=== PATIENT | female | born 1975 | race Caucasian/White ===

== ENCOUNTER 2022-11-13 08:05 | Outpatient (CLI) | payer BC, SELFPAY | END 2022-11-13 08:06 | disposition home or self-care (01) | LOC: ANHOUTPT 08:11 → ANHLAB 08:54 | PROVIDERS: Visit Provider Internal Medicine Endocrinology, Diabetes & Metabolism | DX: E27.1 Primary adrenocortical insufficiency (principal) | CPT/HCPCS: 36415; 82533; 96372; J0834 ==

== ENCOUNTER 2024-12-21 16:11 | Emergency (ER) | payer BC, SELFPAY ==
--- NOTE | 2024-12-21 16:17 | PC.NURSE ---
Pt checked in and then declined to be seen due to full waiting room. Pt declined to be triaged. Pt ambulated out in NAD.
--- OUTSIDE RECORDS SUMMARY | 2024-12-21 18:08 | XMS_ITS | Data Portability ---
Author Organization [facility], [address] [place] [address] Neurology (ID) Address [address] [place] [id number] Assessment Encounter Date Assessment Date Assessment LastModified by Organization Details LastModified Time 03/09/2024 03/09/2024 Loly Is a 49-year-old woman with a very complicated health history 1. Multiple allergies to meds. i strongly encourage her to get medical alert bracelet for this. 2. lung nodule-- i will get her records and then follow up on ct lungs 3. anxiety, depression, ADHD-- she follows [facility] in [place] for medication management 4. OA and CRPS-- she uses daily marijuana -- smokes it. She sometimes takes a break from this and uses vicodin. I need to see old records related to this. She asks for hydrocodone when she goes off of THC to reset tolerance. 5. intracranial meningioma- -will review records. She says current size is about 1.5 by 1.5 cm. 6. tahcycardia-- she is seeing cardiology for this. she is on metoprolol. Cardiologis is [place]. 7. Gastric fistula managed with pantoprazole 40 mg twice daily. No labs today. Will review records and then make recomendations. Time 40 minutes [id number] Not available 03/09/2024 23:57:49 Plan of Treatment Reminders Order Date Submit Date Provider Last Modified By Organization Details Last Modified Time Details Appointments Spiromet ry.PRO 2024 01:15P M [facility] Not available Not available Not available New Patient Visit 20.NEW 2024 02:00P M Dr. Marifer Almaguer Not available Not available Not available New Patient Visit 15.NEW 2024 03:30P M Dr. Ronnie Bateman Not available Not available Not available Lab None recorded . Referral None recorded . Procedures None recorded . Surgeries None recorded . Imaging None recorded . Medication Orders None recorded . Patient TargetsNo targets recorded. Patient InstructionsNo instructions recorded. Reason for Referral None Reported. Problems Name Problem SNOMED Code Status Onset Date Resolution Date Notes Provider Name and Address Organization Details Recorded Time Complex regional pain syndrome type I 502739807 Active 2023 Shawna Casey MD [address] [place] [address], [phone] , [facility] 4 23:37:04 Tachycardia 6292615 Active 2023 Shawna Casey MD [address] [place] [address], [address] , [facility] 4 23:37:18 Intracranial meningioma 515608595 Active 2023 Shawna Casey MD [address] [place] [address], [phone] , [facility] 4 23:37:30 Asthma 260964580 Active 2023 Shawna Casey MD [address] [place] [address], [address] , [facility] 4 23:37:39 Osteoarthriti s 813973796 Active 2023 Shawna Casey MD [address] [place] [address], [phone] , [facility] 4 23:37:49 Attention deficit hyperactivity disorder, predominantly inattentive type 54899865 Active 2023 Shawna Casey MD [address] [place] [address], [address] , [facility] 4 23:37:57 Gastric fistula 982552540 Active 2023 Shawna Casey MD [address] [place] [address], [address] , [facility] 4 23:38:04 Thoracic outlet syndrome 704042248 Active 2023 Shawna Casey MD [address] [place] [address], [address] , [facility] 4 23:38:14 Anxiety 89663158 Active 2023 Shawna Casey MD [address] [place] [address], [address] , [facility] 4 23:38:22 Nodule of lung 867896269 Active 2023 Shawna Casey MD [address] [place] [address], [address] , [facility] 4 23:38:33 Dizziness 843583714 Active 2023 Shawna Casey MD [address] [place] [address], [address] , [facility] 4 23:38:41 Gastroesophag eal reflux disease 264498749 Active 2023 Shawna Casey MD [address] [place] [address], [address] , [facility] 4 23:38:49 Fibromyalgia 402039080 Active 2023 Shawna Casey MD [address] [place] [address], [address] , [facility] 4 23:39:06 Hypogammaglob ulinemia 223189444 Active 2023 Shawna Casey MD [address] [place] [address], [address] , [facility] 4 23:39:26 Problem Notes None recorded. Procedures Surgical History Date Name Laterality Status Provider Name and Address Organization Details Recorded Time Colonoscopy with biopsy completed Not Available Health Note 02/27/2024 12:00:33 Gastric Bypass completed Shawna Casey MD [address] [place] [address], [address], [facility] 03/09/2024 23:40:59 oophorectomy completed Shawna Casey MD [address] [place] [address], [address], [facility] 03/09/2024 23:41:12 Removal of fallopian tube completed Shawna Casey MD [address] [place] [address], [address], [facility] 03/09/2024 23:41:30 Imaging Results None recorded. Procedure Notes None recorded. Medical Equipment None Reported. Allergies Allergen ID Allergen Name Allergen Category Reaction Reaction Severity Criticality Documentation Date Start Date Code Code System Note Provider Name and Address Organization Details Recorded Time 7798430 minocycli ne medicatio n hives itching rash tachycard ia Not available Not available Not available Not available Not available 02/27/2024 6980 RxNorm Not Available Not Available Not Available 7625895 erythromy rachel medicatio n [place] hives itching palpitati ons rash tachycard ia Not available Not available Not available Not available Not available Not available Not available 02/27/2024 4053 RxNorm Not Available Not Available Not Available 0474736 adhesive environme nt,medica tion other rash Not available Not available Not available 02/27/2024 00575 UNK Not Available Not Available Not Available 6614587 amitripty line medicatio n eye redness other rash Not available Not available Not available Not available 02/27/2024 704 RxNorm Not Available Not Available Not Available 8636428 gabapenti n medicatio n confusion hallucina tions headache other Not available Not available Not available Not available Not available 02/27/2024 99976 RxNorm Not Available Not Available Not Available 3636595 ramelteon medicatio n itching other Not available Not available Not available 02/27/2024 80896 5 RxNorm Not Available Not Available Not Available 6524538 topiramat e medicatio n abdominal pain other Not available Not available Not available 02/27/2024 74858 RxNorm Not Available Not Available Not Available 0890345 metoprolo l Not available abdominal pain insomnia myalgias (muscle pain) nausea other Not available Not available Not available Not available Not available Not available 02/27/2024 6918 RxNorm Not Available Not Available Not Available Medications Name Sig Start Date Stop Date Status Note LastModified by Organization Details LastModified Time doxepin 50 mg capsule active Not Available Not Available N ot Available prednisone 10 mg tablet 03/09 completed Not Available Not Available Not Available metoprolol succinate ER 50 mg tablet,exte nded release 24 hr 03/09 completed Not Available Not Available Not Available naltrexone 50 mg tablet TAKE 1 TABLET BY MOUTH EVERY EVENING WITH FOOD 03/09 completed Not Available Not Available Not Available prednisone 20 mg tablet TAKE 1 TABLET BY MOUTH DAILY FOR 5 DAYS 03/09 completed Not Available Not Available Not Available clonazepam 1 mg tablet TAKE 1 TABLET BY MOUTH THREE TIMES DAILY NEEDED active Not Available Not Available No t Available clotrimazol e 1 % vaginal cream INSERT 1 APPLICATO RFUL VAGINALLY EVERY NIGHT 03/09 completed Not Available Not Available Not Available trazodone 100 mg tablet TAKE 1 TO 2 TABLETS BY MOUTH AT BEDTIME FOR SLEEP 03/09 completed Not Available Not Available Not Available benzonatate 100 mg capsule 03/09 completed Not Available Not Available Not Available pantoprazol e 40 mg tablet,quincy yed release 1 Twice daily active Not Available Not Available No t Available cyanocobala min (vit B-12) 1,000 mcg/mL injection solution ADMINISTE R 1ML UNDER THE SKIN EVERY WEEK EVERY MORNING 03/09 completed Not Available Not Available Not Available buspirone 7.5 mg tablet active Not Available Not Available Not Available folic acid 1 mg tablet TAKE 1 TABLET BY MOUTH EVERY DAY IN THE MORNING 03/09 completed Not Available Not Available Not Available montelukast 10 mg tablet TAKE 1 TABLET BY MOUTH EVERY DAY IN THE EVENING active Not Available Not Available No t Available mupirocin 2 % topical ointment APPLY TO BOTH NARES TWICE DAILY STARTING 5 DAYS BEFORE SURGERY AND ENDING 1 DAY BEFORE SURGERY 07/15 /2024 completed Not Available Not Available Not Available furosemide 20 mg tablet 03/09 completed Not Available Not Available Not Available albuterol sulfate HFA 90 mcg/actuati on aerosol inhaler INHALE 2 PUFFS BY MOUTH EVERY 4 HOURS NEEDED FOR WHEEZING OR SHORTNESS OF BREATH active Not Available Not Available No t Available amoxicillin 875 mg-potassiu m clavulanate 125 mg tablet TAKE 1 TABLET BY MOUTH TWICE DAILY FOR 10 DAYS 03/09 completed Not Available Not Available Not Available hydroxyzine pamoate 25 mg capsule 03/09 completed Not Available Not Available Not Available escitalopra m 20 mg tablet TAKE 1 AND 1/2 TABLETS BY MOUTH DAILY active Not Available Not Available No t Available aripiprazol e 5 mg tablet 03/09 completed Not Available Not Available Not Available aripiprazol e 2 mg tablet 03/09 completed Not Available Not Available Not Available lisdexamfet amine 70 mg capsule TAKE 1 CAPSULE BY MOUTH DAILY IN THE MORNING active Not Available Not Available No t Available Vyvanse 50 mg capsule TAKE 1 CAPSULE BY MOUTH EVERY MORNING 03/09 completed Not Available Not Available Not Available Vyvanse 60 mg capsule TAKE ONE CAPSULE BY MOUTH DAILY IN THE MORNING 03/09 completed Not Available Not Available Not Available Zyrtec 10 mg capsule Take 1 capsule every day by oral route. active Not Available Not Available No t Available Dulera 200 mcg-5 mcg/actuati on HFA aerosol inhaler INHALE 2 PUFFS BY MOUTH TWICE DAILY 03/09 completed Not Available Not Available Not Available TRUEplus Insulin 1 mL 31 gauge x 5/16 syringe USE TO INJECT VITAMIN B12 SUBCUTANE OUSLY WEEKLY FOR 90 DAYS 03/09 completed Not Available Not Available Not Available Vraylar 1.5 mg capsule TAKE 1 CAPSULE BY MOUTH DAILY. MAXIMUM DAILY DOSE IS 1 CAPSULE 03/09 completed Not Available Not Available Not Available Vraylar 4.5 mg capsule Take 1 capsule every day by oral route. active Not Available Not Available No t Available Vraylar 3 mg capsule TAKE 1 CAPSULE BY MOUTH DAILY. 03/09 completed Not Available Not Available Not Available Restasis MultiDose 0.05 % eye drops INSTILL 1 DROP INTO AFFECTED EYE(S) BY OPHTHALMI C ROUTE EVERY 12 HOURS active Not Available Not Available No t Available Trelegy Ellipta 100 mcg-62.5 mcg-25 mcg powder for inhalation INHALE 1 PUFF BY MOUTH DAILY active Not Available Not Available No t Available Vitals Date Recorded Body height Body mass index (BMI) Body weight Body temperature Oxygen saturation Oxygen saturation in Arterial blood by Pulse oximetry Heart rate Systolic blood pressure Diastolic blood pressure Provider Name and Address Organization Details Last Updated DateTime 4 176.53 cm 44.1 kg/m2 622682. 49 g 97.3 [degF] 99 % 99 % 90 /min 118 mm[Hg] 78 mm[Hg] Stacy Shaw [facility] 4 17:18:45 Social History Question Answer Notes LastModified by Organizat ion Details LastModified Time Do You Have An Advance Directive? No [email or web address] Information not available 02/27/2024 What Is Your Level Of Alcohol Consumption? Occasional [email or web address] Information not available 02/27/2024 How Many Times Per Week Do You Consume Alcohol? Less Than 1 Time Per Week [email or web address] Information not available 02/27/2024 What Is Your Level Of Caffeine Consumption? Heavy [email or web address] Information not available 02/27/2024 Are You Currently Employed? No [email or web address] Information not available 02/27/2024 What Is Your Occupation? Homemaker [email or web address] Information not available 02/27/2024 How Many Times Per Week Do You Exercise? Less Than 1 Time Per Week [email or web address] Information not available 02/27/2024 E-cigarettes Or Vaporization Device? Uses Non-nicotine Containing Device [email or web address] Information not available 02/27/2024 How Many Packs Per Day (PPD)? 4 Ppd Information not available 03/09/2024 How Long Have You Smoked? 8yr Information not available 03/09/2024 When Did You Quit Smoking? 2000 [email or web address] Information not available 02/27/2024 Do You Have A Medical Power Of Stove Mechanic? No [email or web address] Information not available 02/27/2024 What Was The Date Of Your Most Recent Tobacco Screening? 02/26/2024 [email or web address] Information not available 02/27/2024 What Is Your Relationship Status? [email or web address] Information not available 02/27/2024 Do You Use Any Illicit Or Recreational Drugs? No [email or web address] Information not available 02/27/2024 Sex: Unknown Functional Status Question Answer Note LastModified by Organizat ion Details LastModified Time What is your exercise level? Occasional [email or web address] Information not available 02/27/2024 Mental Status None recorded. Family History Relationship Description Onset Age of this Age Resolved Age Notes LastModified by Organization Details LastModified Time Brother Attention deficit hyperactivit y disorder [email or web address] Not available 02/26 12:00:31 Brother Arthritis [email or web address] Not availabl e 02/27/2024 12:00:31 Brother Asthma [email or web address] Not available 0 02/27/2024 12:00:31 Brother Hypertensive disorder [email or web address] Not available 2023 12:00:31 Mother Arthritis [email or web address] Not available 02/27/2024 12:00:31 Mother Family history of malignant neoplasm [email or web address] Not available 2023 12:00:31 Mother Chronic obstructive pulmonary disease [email or web address] Not available 2023 12:00:31 Mother Heart disease [email or web address] Not available 2023 12:00:31 Mother Hypertensive disorder [email or web address] Not available 2023 12:00:31 Mother Hypercholest erolemia [email or web address] Not available 2023 12:00:31 Mother Osteoporosis [email or web address] Not availa ble 02/27/2024 12:00:31 Father Arthritis [email or web address] Not available 02/27/2024 12:00:31 Father Family history of malignant neoplasm [email or web address] Not available 2023 12:00:31 Father Heart disease [email or web address] Not available 2023 12:00:31 Father Hypertensive disorder [email or web address] Not available 2023 12:00:31 Father Hypercholest erolemia [email or web address] Not available 2023 12:00:31 Maternal Grandfather Arthritis [email or web address] Not available 11/2023 12:00:31 Maternal Grandfather Heart disease [email or web address] Not available 2023 12:00:31 Maternal Grandfather Hypertensive disorder [email or web address] Not available 2023 12:00:31 Paternal Grandfather Arthritis [email or web address] Not available 11/2023 12:00:31 Paternal Grandfather Family history of malignant neoplasm [email or web address] Not available 2023 12:00:31 Paternal Grandfather Hypertensive disorder [email or web address] Not available 2023 12:00:31 Maternal Grandmother Arthritis [email or web address] Not available 11/2023 12:00:31 Maternal Grandmother Hypertensive disorder [email or web address] Not available 2023 12:00:31 Paternal Grandmother Arthritis [email or web address] Not available 11/2023 12:00:31 Paternal Grandmother Chronic obstructive pulmonary disease [email or web address] Not available 2023 12:00:31 Paternal Grandmother Heart disease [email or web address] Not available 2023 12:00:31 Paternal Grandmother Hypertensive disorder [email or web address] Not available 2023 12:00:31 Paternal Grandmother Hypercholest erolemia [email or web address] Not available 2023 12:00:31 Paternal Grandmother Osteoporosis [email or web address] Not available 0 02/27/2024 12:00:31 Paternal Grandmother Disorder of thyroid gland [email or web address] Not available 2023 12:00:31 Medical History Condition Response High Blood Pressure N COPD N Depression Y Anxiety Disorder Y Arthritis Y Cancer N Stroke N Fibromyalgia Y Kidney Disease N Bleeding Disorder N Asthma Y Seizures N Attention-deficit Hyperactivity Disorder Y Thyroid Problems N Anemia Y Diabetes N Hyperlipidemia N Heart Disease N Osteoporosis N Gynecological HistoryNo gynecological history recorded. Obstetrics History GPAL:G 0 P 0 0 0 0 Immunizations Vaccine Type Date Status Note Provider Nam e and Address Organization Details Recorded Time Influenza, recombinant, quadrivalent, PF 8 completed Stacy Shaw [facility], [facility] 03/09/2024 17:11:32 pneumococcal polysaccharide PPV23 8 completed Stacy jiang, [facility] 03/09/2024 17:11:32 [facility] 17:11:32 Influenza, split virus, trivalent, preservative 6 completed Stacy Shaw [facility] 03/09/2024 17:11:32 Past Encounters Encounter ID Performer Location Encounter Start Date Encounter Closed Date Diagnosis/Indication Diagnosis SNOMED-CT Code Diagnosis ICD10 Code Diagnosis Note [id number] Shawna Casey MD [facility] Internal Medicine (ID) [id number] [place] [address] 03/09/2024 16:55:52 03/11/2024 16:11:24 Nodule of lung 478895943 R91.1 Osteoarthritis 051361026 M19.90 Intracrani al meningioma 044303662 D32.0 Tachycardia 3556531 R00. 0 Gastric fistula 70048448 2 K31.6 Attention deficit hyperactivity disorder, predominantly inattentive type 06072691 F90.0 Health Concerns Section Related Observation LastModified by Organization Detai ls LastModified Time None Recorded Concern Status LastModified by Organization Details LastModified Time None Recorded Advance Directives Directive N: Payers None recorded. Notes Date Note Type Note Provider Name and Address Organization Details Recorded Time 4 text/html Loly Reese a 49 year oldfemalepresenting for care. She is a new patient to the practice and here to establish care. She has a very complex health history. She has a meningioma in the left parietal area. She is followed by a neurosurgeon at [facility]. She does not have any symptoms. The surgeon wants to do surgery but she wants to wait. She sees a [facility] Anayeli Dinero who prescribes medication for her anxiety depression ADD and other psychiatric issues. She recently had a stimulant added to her regimen to see if this would help with her ability to concentrate. She does not think it is working. She has complex regional pain syndrome which affects the right side of her body. In the past it would turn purple and swell. Now she has discomfort. Cold weather makes it worse. She has tachycardia.She has been seeing a county home demonstration agent for this. Holter monitor showed a slightly decreased output on the right ventricle. When she gets the tachycardia, she has to sit down as she does not think clearly. Her heart rate is monitored electronically and it can get up to 123 without any exertion. She does not get chest pain with this. She has a known pulmonary nodule. She was a very heavy smoker and quit in 1999. She needs to have a CT scan to follow-up on this. She has multiple medication allergies. Amitriptyline caused significant bleeding and I suggested to her that she get a bracelet to wear with her allergies printed on it. She is current for her Pap smear, mammogram, eye exam, colonoscopy the. She has an another colonoscopy scheduled for 2026. 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 Shawna Casey MD [address] [facility], [place], [address], [facility] 03/09/2024 23:58:08 OBGyn Episode No OBEpisode recorded.
--- OUTSIDE RECORDS SUMMARY | 2024-12-21 18:08 | XMS_ITS ---
Author Organization [facility] Address [address] [address] Care Team Providers Care Machine Design Checker Name Role Phone Samantha Mcbride Primary Care Provider BROOKE Martin Unavailable [phone] REASON FOR VISIT 1 month f/u Encounters Encounter Location Date Provider Diagnosis [address] [id number] 10/19/2024 BROOKE MOSS Plan Of Treatment No Information Progress Notes * Loly PETERSON WDOB: [birth year] (49 yo F)Acc No.[id number]:10/19/2024 Patient: Loly TANG Provider: Richelle Moss MD :1975 A ge:49 Y S ex:Female Date:10/19/2024 Address:[address] [place], [place] [id number] Pcp:Samantha Mcbride Subjective: * Chief Complaints: * 1 . 1 month f/u. * Medical History: Objective: * Vitals: Assessment: Plan: * Treatment: * * Electronic signature of ZITA MOSS MD on 12/21/2024 at 06:08 PM CDT Sign off status: Pending * Provider: Richelle Moss MD Date: 10/19/2024 Generated for Manavi ng/Fabelkysg/eTransmitting on: 0 12/21/2024 06:08 PM CDT
--- OUTSIDE RECORDS SUMMARY | 2024-12-21 18:08 | XMS_ITS ---
Author Organization [facility] Address [address] [place] [address] Care Team Providers Care Lithographic Retoucher Apprentice Name Role Phone Samantha Mcbride Primary Care Provider REASON FOR VISIT follow up Encounters Encounter Location Date Provider Diagnosis [facility] - Samantha Mcbride [address] [place] [address] 09/15/2024 Samantha Mcbride Plan Of Treatment No Information Progress Notes * Loly PETERSONDOB:1975 (49 yo F)Acc No.[id number]:09/15/2024 Progress Notes Patient: Loly TANG Provider: Rosalind Mcbride MD :1975 A ge:49 Y S ex:Female Date:09/15/2024 Address:[address] [place], [place] [id number] Subjective: * Chief Complaints: * 1 . Follow up. * HPI: I nterval Hx: [age] yo female comes in for follow up in management of prediabetes, fatigue and autoimmune thyroiditis. At her last visit in May we continued metformin and added zepbound for weight management. We referred patient to cardiology for lower ext swelling and tachycardia. We wanted repeat DST but lab did not include cortisol level with her dexa level. * Medical History: Objective: * Vitals: * P ast Orders: L ab:DEXAMETHASONE (Order Date - 09/03/2024) (Collection Date & Time - 09/03/2024 07:15 AM) Value Reference Range DEXAMETHASONE 305 - ng/dL L ab:CORTISOL, TOTAL (Order Date - 09/02/2024) (Collection Date & Time - 09/02/2024 08:12 AM) Value Reference Range CORTISOL, TOTAL 16.9 - mcg/dL L ab:TSH (Order Date 09/02/2024) (Collection Date & Time - 09/02/2024 08:10 AM) Value Reference Range TSH 1.84 - mIU/L Lab:T3, FREE * Collection Date 09/02/2024 06/30/2024 Collection Time 08:10 AM 08:18 AM Order Date 09/02/2024 06/30/2024 T3, FREE 3.3 (Ref Range: 2.3-4.2 pg/mL) 3.6 (Ref Range: 2.3-4.2 pg/mL) ???Lab:DHEA SULFATE (Order Date 09/02/2024) (Collection Date & Time - 09/02/2024 08:10 AM)?ValueReference Range?DHEA [id number] - mcg/dL ???Lab:LIPID PANEL (Order Date 09/02/2024) (Collection Date & Time - 09/02/2024 08:10 AM)?ValueReference Range?UUXFYYILQRRUN601P<150 - mg/dL?CHOLESTEROL, VHVER143C<200 - mg/dL?HDL MCWJILLTTMR34> OR = 50 - mg/dL?LDL-PYMGIEAYDPI566G- mg/dL (calc)?CHOL/HDLC RATIO3.8 <5.0 - (calc)?NON-HDL YAQBCTWUGWB973R<130 - mg/dL (calc) ???Lab:HEMOGLOBIN A1c (Order Date - 09/02/2024) (Collection Date & Time - 09/02/2024 08:10 AM)?ValueReference Range?HEMOGLOBIN A1c5.5<5.7 - % of total Hgb ???Lab:COMPREHENSIVE METABOLIC PANEL (Order Date 09/02/2024) (Collection Date & Time - 09/02/2024 08:10 AM)?ValueReference Range?JIQXXCC955H70- 99 - mg/dL?UREA NITROGEN (BUN)117-25 - mg/dL?CREATININE0.970.50- 1.03 - mg/dL?BUN/CREATININE RATIOSEE NOTE:6-22 - (calc)?WGYGLZ034 135-146 - mmol/L?POTASSIUM4.53.5-5.3 - mmol/L?SPXQWJXF61489-438 - mmol/L?CARBON CLYYTQG9019-01 - mmol/L?CALCIUM9.38.6-10.4 - mg/dL ?PROTEIN, TOTAL6.36.1-8.1 - g/dL?ALBUMIN4.13.6-5.1 - g/dL ?GLOBULIN2.21.9-3.7 - g/dL (calc)?ALBUMIN/GLOBULIN RATIO1.91.0-2.5 - (calc)?BILIRUBIN, TOTAL0.40.2-1.2 - mg/dL?ALKALINE FCPIEZNYFGI95 37-153 - U/L?WRM7957-23 - U/L?DQR730-36 - U/L?EGFR71> OR = 60 - mL/min/1.73m2 * Lab:T4, FREE * Collection Date 09/02/2024 06/30/2024 Collection Time 08:10 AM 08:18 AM Order Date 09/02/2024 06/30/2024 T4, FREE 1.1 (Ref Range: 0.8-1.8 ng/dL) 1.0 (Ref Range: 0.8-1.8 ng/dL) ???Lab:ACTH, PLASMA (Order Date - 09/02/2024) (Collection Date & Time - 09/02/2024 08:10 AM)?ValueReference Range?ACTH, ZYHDIG369-26 - pg/mL Assessment: Plan: * Treatment: * Billing Information: * Visit Code: * Procedure Codes: * Electronic signature of Cedrick Mcbride MD on 12/21/2024 at 06:08 PM CDT Sign off status: Pending * Provider: Rosalind Mcbride MD Date: 0 09/15/2024 Generated for Bijal chavarria/Suzy/Adelinasmlynne on: 0 12/21/2024 06:08 PM CDT History and Physical Notes * HPI (History of Present Illness) Category Sub-Category Detail Notes Category Not es Interval Hx 49 yo female comes in for follow up in management of prediabetes, fatigue and autoimmune thyroiditis. At her last visit in May we continued metformin and added zepbound for weight management. We referred patient to cardiology for lower ext swelling and tachycardia. We wanted repeat DST but lab did not include cortisol level with her dexa level.
--- OUTSIDE RECORDS SUMMARY | 2024-12-21 18:08 | XMS_ITS ---
Author Organization [facility] Address [address] [address] Care Team Providers Care Mobile Patrol Officer Name Role Phone Samantha Mcbride Primary Care Provider BROOKE Martin Unavailable [phone] Medications Medication SIG (Take, Route, Fr equency, Duration) Notes Start Date End Date Status Ranolazine ER 500 MG TAKE 1 TABLET BY MO UTH TWICE DAILY orally Twice a day for 90 days Active Encounters Encounter Location Date Provider Diagnosis [facility] [address] [id number] 12/02/2024 BROOKE MOSS Chest pain, unspecified R07.9 Assessments Encounter Date Diagnosis (ICD Code) Assessment Notes Treatment Notes Treatment Clinical Notes Section Notes 12/02/2024 Chest pain, unspecified (ICD-10 - R07.9) Plan Of Treatment Medication Medication Name Sig Start Date Stop Date Notes Ranolazine ER 500 MG TAKE 1 TABLET BY MO UTH TWICE DAILY orally Twice a day for 90 days Progress Notes * Loly PETERSON WDOB: [birth year] (49 yo F)Acc No.[id number]:12/02/2024 Patient: Loly TANG :1975 A ge:49 Y S ex:Female Address:[address] [place], [place] [id number] * Refills Refill Ranolazine ER Tablet Extended Release 12 Hour, 500 MG, orally, 180, TAKE 1 TABLET BY MOUTH TWICE DAILY, Twice a day, 90 days, Refills=1 * true * Date: Generated for Bijal chavarria/Suzy/Marychuy on: 0 12/21/2024 06:08 PM CDT
--- OUTSIDE RECORDS SUMMARY | 2024-12-21 18:08 | XMS_ITS | Referral Summary ---
Author Organization [facility] Address [address] [place] [address] Care Team Providers Care Groundman/Lineman Name Role Phone Dilcia Ivan MD Primary Care Provi beronica Encounters Date Type Department Care Team Description 12/16/2024 Letter (Out) [facility] Medicine [address] [phone] 12/07/2024 5:33 PM CDT - 12/07/2024 11:59 PM CDT Hospital Encounter [facility] - Imaging [address] [place] [address] Disorder of adrenal gland, unspecified Discharge Disposition: Discharge to home or self care 10/14/2024 6:05 PM PSYCHIATRIC CNS E-Visit [facility] Medical [facility] Virtual Care [address] [place] [address] Mary Anne Zheng NP Your Medications 10/14/2024 Patient Self-Triage [facility] Health[facility]/ Physicians [address] [place] [address] Mychart, Generic Provider 10/09/2024 Nurse Triage [facility] Medicine [address] [phone] Dilcia Ivan MD 10/09/2024 Telephone [facility] Medical Group Family Medicine [address] [phone] Dilcia Ivan MD 10/09/2024 Patient Self-Triage [facility] [address] [place] [address] Mychart, Generic Provider from Last 3 Months Allergies Active Allergy Reactions Criticality Noted Date Comments Amitriptyline Rash,Other (See comments) High 03/27/2018 Bruising and blood vessel broken in eye Egg Other (See comments),Nausea only Reaction: DIZZY, NAUSEA, , Reaction: dizzy, nausea, Erythromycin Other (See comments),Rash Reaction: ITCHY, RASH, , Reaction: itchy, rash, Gabapentin Fatigue,Other (See comments) Low 07/11/2017 Reaction: Other Minocycline Itching Low 04/16/2013 Prochlorperazine Itching Low 06/14/2021 Ramelteon Itching,Fatigue Low 12/08/2015 rozerem (Sleeping aid) Adhesive Rash Medium 04/06/2016 Topiramate Other (See comments) Low 06/04/2018 Unable to eat, acid reflux, stomach pain Medications medical cannabis each Take 1 Dose by mouth as needed Pain Last use 05/26/23 Active inhalational spacing device (Aerochamber MV) spacer Use as directed with inhaler. 7 Active cycloSPORINE (Restasis) 0.05 % ophthalmic emulsionIndicatio ns:dry eye Administer 1 drop into both eyes every 12 (twelve) hours 6 Active escitalopram (LEXAPRO) 20 mg tabletIndications :Anxiety with Depression Take 1.5 tablets (30 mg total) by mouth daily after lunch Pt is taking 2 tabs a day. 1 Active ondansetron (ZOFRAN) 4 mg tablet Take 1 tablet (4 mg total) by mouth as needed for nausea or vomiting 0 Active clonazePAM (KlonoPIN) 1 mg tablet Take 1 tablet (1 mg total) by mouth as needed for anxiety 2 Active Vyvanse 70 mg capsuleIndication s:Attention-Defic it Hyperactivity Disorder Take 1 capsule (70 mg total) by mouth every morning 3 Active sodium chloride (ROSE MARIE 128) 5 % ophthalmic solutionIndicatio ns:Corneal Edema 1 drop 3 (three) times a day Active folic acid (FOLVITE) 1 mg tabletIndications :Folate Deficiency Take 1 tablet (1,000 mcg total) by mouth every morning 3 Active mupirocin (BACTROBAN) 2 % ointment Apply to nares BID starting 5 days prior to surgery ending the day prior 22 g 3 Active sodium chloride 5 % ophthalmic ointmentIndicatio ns:Corneal Edema Apply 1 drop to both eyes nightly Active fluticasone-umecl idin-vilanter (Trelegy Ellipta) 100-62.5-25 mcg inhaler INHALE 1 PUFF BY MOUTH DAILY 60 each 2 4 Active DILT-XR 120 mg 24 hr capsule TAKE 1 CAPSULE(120 MG) BY MOUTH DAILY 90 [address] (PROTONIX) 40 mg EC tabletIndications :Gastroesophageal reflux disease without esophagitis TAKE 1 TABLET(40 MG) BY MOUTH DAILY 100 tablet 1 4 Active benztropine (COGENTIN) 1 mg tablet Take 1 tablet (1 mg total) by mouth daily 4 Active cetirizine (ZyrTEC) 10 mg tablet daily Active cyanocobalamin (Vitamin B-12) 1,000 mcg/mL injection INJECT 1 ML UNDER THE SKIN ONCE WEEKLY 4 Active ergocalciferol (VITAMIN D) 50,000 unit capsule Take 1 capsule (50,000 Units total) by mouth once a week 4 Active hydrOXYzine (VISTARIL) 25 mg capsule 4 Active metFORMIN XR (GLUCOPHAGE XR) 500 mg 24 hr tablet Take 1 tablet (500 mg total) by mouth daily 4 Active BD Integra Syringe 3 mL 23 gauge x 1 syringe as directed 4 Active Zepbound 5 mg/0.5 mL pen injector INJECT 5MG UNDER THE SKIN ONCE A WEEK 4 Active Vraylar 3 mg capsule capsule Take 1 capsule (3 mg total) by mouth daily 4 Active tiZANidine (ZANAFLEX) 2 mg tabletIndications :Fibromyalgia Take 1 tablet (2 mg total) by mouth every 8 (eight) hours as needed for muscle spasms 30 tablet 1 4 Active montelukast (SINGULAIR) 10 mg tabletIndications :Chronic rhinitis TAKE 1 TABLET(10 MG) BY MOUTH EVERY NIGHT 90 tablet 4 Active albuterol (PROAIR RESPICLICK) 90 mcg/actuation inhalerIndication s:Acute sinusitis, recurrence not specified, unspecified location Inhale 2 puffs 4 (four) times a day 1 each 5 10/14/19 26 Active amoxicillin-clavu lanate (Augmentin) 875-125 mg per tablet Take 1 tablet by mouth 2 (two) times a day 20 tablet 5 Active Active Problems Problem Noted Date Diagnosed Date Well adult exam 07/31/2024 Overview (07/31/2024): Reviewed working on a heart healthy diet and activity to her level. Health Maintenance: Last PAP: hysterectomy Last mammogram: encouraged to set up Last colonoscopy: 2021 Vaccines when she is able to Assessment & Plan (07/31/2024 5:03 PM PSYCHIATRIC CNS): Reviewed working on a heart healthy diet and activity to her level. Health Maintenance: Last PAP: hysterectomy Last mammogram: encouraged to set up Last colonoscopy: 2021 Vaccines when she is able to Vitamin B12 deficiency (non anemic) 10/24/2022 Vitamin D deficiency 10/04/2022 Hypogammaglobulinemia 10/04/2022 Dysthymia 10/04/2022 Allergic rhinitis 10/04/2022 Allergic contact dermatitis due to chemical 04/2023 Nausea and vomiting 09/25/2022 Assessment & Plan (09/25/2022 11:14 AM PSYCHIATRIC CNS): Chronic nausea and vomiting. Labs including LFTs and lipase were normal. -schedule EGD -complete ultrasound ordered by PCP -The risks (risks of bleeding, infection, perforation requiring surgery, missed polyps/cancer, dental injury, aspiration pneumonia, anesthesia complications such as drug reaction and cardiopulmonary complications including rare chance of ), benefits, and alternatives of the planned procedure were explained to the patient who understands and consents to having procedure done. History of colon polyps 09/25/2022 Assessment & Plan (09/25/2022 11:14 AM PSYCHIATRIC CNS): Last colonoscopy [address] Yovani Reaves with 2 tubular adenomas and 3 hyperplastic polyps. -repeat colonoscopy August 2026 Gastroesophageal reflux disease without esophagi tis 09/25/2022 Assessment & Plan (09/25/2022 11:15 AM PSYCHIATRIC CNS): Chronic GERD, taking pantoprazole b.i.d.. -continue PPI b.i.d. - discuss long-term side effects of PPIs and goal to reduce to PPI once daily, we will address pending EGD -RECOMMENDATIONS given include: anti-reflux maneuvers, Avoid acidic foods like oranges and tomatoes., avoidance of spicy foods, avoid eating 3-4 hours before bed, elevation of the head of the bed, and weight loss Fibromyalgia 07/31/2022 COVID-19 07/30/2022 Tachycardia 07/04/2022 Assessment & Plan (07/04/2022 2:07 PM PSYCHIATRIC CNS): Ordered 24 hour Holter monitor today. Referral for Cardiology placed. She will follow up as needed after she sees Cardiology. Lung nodule 07/04/2022 Assessment & Plan (07/04/2022 2:08 PM PSYCHIATRIC CNS): Discussed with patient that the radiologist recommended [address] follow-up if she had risk factors for lung cancer. She reports her grandfather of lung cancer. She does not personally have smoking, secondhand smoke asbestos or Radon exposure. She would like to have a repeat scan in 1 year. Dizziness 07/04/2022 Assessment & Plan (07/04/2022 2:07 PM PSYCHIATRIC CNS): Patient instructed to change positions slowly in order to minimize dizziness and feeling off balance. Discussed that clonidine and any psych meds can contribute to dizziness. She will follow up with Cardiology as planned and we will evaluate after further workup. Moderate episode of recurrent major depressive d isorder 04/25/2022 Assessment & Plan (04/25/2022 3:45 PM CDT): Chronic- stable Continue to follow with psychiatry, psychology Continue her current regimen Continue healthy changes for mood Any dangerous thoughts to the er Call for questions or concerns Other headache syndrome 11/14/2021 Snoring 10/18/2021 Assessment & Plan (10/18/2021 2:53 PM PSYCHIATRIC CNS): Due to the snoring and hypersomnia, I have recommended the patient complete a nocturnal polysomnogram with split night protocol no MSLT. The patient I also discussed an in-home nocturnal polysomnogram as an option. Both procedures were detailed in depth. The patient will be taking her 50 mg of trazodone on the night of the study. The patient is agreeable Hypersomnia 10/18/2021 Class 3 severe obesity witho ut serious comorbidity with body mass index (BMI) of 45.0 to 49.9 in adult 06/14/2021 Assessment & Plan (07/31/2024 3:11 PM PSYCHIATRIC CNS): Chronic, slight progression Continue zepbound BMI Follow-up includes: nutrition counseling. Assessment & Plan (04/09/2024 12:11 PM CDT): Chronic, worse BMI Follow-up includes: Continue working on healthy lifestyle changes. Labs ordered for further guidance . Assessment & Plan (07/26/2023 4:24 PM PSYCHIATRIC CNS): Chronic, slightly worse Appetite currently diminished with her current symptoms Encouraged supportive care and taking care of herself BMI Follow-up includes: For now, making sure she is eating and taking care of herself . Assessment & Plan (04/25/2022 3:55 PM CDT): BMI Follow-up includes: nutrition counseling. Assessment & Plan (06/14/2021 3:04 PM CDT): BMI Follow-up includes: nutrition counseling. CORDELIA (generalized anxiety disorder) 06/14/2021 Assessment & Plan (04/25/2022 3:42 PM CDT): Chronic- stable Continue to follow with psychiatry, psychology Continue her current regimen Continue healthy changes for mood Call for questions Assessment & Plan (06/14/2021 5:39 PM CDT): Continue her current regimen from her psychiatrist Continue to follow with her psychiatrist Call for questions or concerns Intracranial meningioma 07/10/2018 Assessment & Plan (06/14/2021 3:00 PM CDT): Will place referral to neurology MRI scheduled for next year Update me with any changes Laryngospasm 07/11/2017 Assessment & Plan (06/14/2021 3:00 PM CDT): Continue to follow with allergy Dysphonia 07/11/2017 Assessment & Plan (06/14/2021 2:58 PM CDT): Continue to follow with allergy Persistent cough 06/26/2017 Assessment & Plan (06/14/2021 3:02 PM CDT): Continue to follow with mackenzie ADD (attention deficit disorder) 05/12/2017 Assessment & Plan (06/14/2021 5:38 PM CDT): Continue vyvanse Continue to follow with her psychiatrist Update me with any changes Ex-smoker 05/12/2017 History of gastric bypass 05/12/2017 Assessment & Plan (06/14/2021 3:00 PM CDT): Continue to follow with her surgeon- will consider referral to GI for monitoring 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 Diagnosed with gastric fistula in [id number] on EGD. Referred to bariatric surgery who recommended medical management. -obtain prior GI records Complex regional pain syndrome i of right upper limb 01/15/2017 Assessment & Plan (07/13/2021 3:01 PM PSYCHIATRIC CNS): With acute flare of her pain Continue hydrocodone as prescribed Will do a steroid burst Continue supportive care like heat and rest Update me if her symptoms do not improve Call for questions or concerns Assessment & Plan (06/14/2021 2:57 PM CDT): Stable, though does need norco rarely She has been working on healthy changes to support her symptoms Continue supportive care Consider referral to pain management Call for questions or concerns Allergic rhinoconjunctivitis 09/17/2016 Assessment & Plan (06/14/2021 2:54 PM CDT): Continue to follow with allergy Asthma 04/06/2016 Assessment & Plan (06/14/2021 2:56 PM CDT): Stable Continue current regimen Continue to follow with her bid analyst Chronic pain 04/06/2016 Assessment & Plan (06/14/2021 2:57 PM CDT): Stable, though does need norco rarely She has been working on healthy changes to support her symptoms Continue supportive care Consider referral to pain management Call for questions or concerns Arthritis 04/06/2016 Reflex sympathetic dystrophy 04/06/2016 Assessment & Plan (07/13/2021 3:02 PM PSYCHIATRIC CNS): With an acute flare Continue hydrocodone as prescribed Prednisone burst Continue supportive care Call for questions Assessment & Plan (06/14/2021 3:02 PM CDT): Stable, though does need norco rarely She has been working on healthy changes to support her symptoms Continue supportive care Consider referral to pain management Call for questions or concerns Spinal enthesopathy 04/06/2016 Assessment & Plan (06/14/2021 3:03 PM CDT): Will check xrays Consider referral to pain management Continue supportive care Call for questions or concerns 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 Assessment & Plan (06/14/2021 2:58 PM CDT): Will check xrays Consider referral to pain management Continue supportive care Call for questions or concerns Thoracic outlet syndrome 03/14/2016 Assessment & Plan (06/14/2021 3:03 PM CDT): Stable, though does need norco rarely She has been working on healthy changes to support her symptoms Continue supportive care Consider referral to pain management Call for questions or concerns 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 Other diseases of vocal cords 09/30/2013 Assessment & Plan (06/14/2021 3:02 PM CDT): Continue to follow with allergy Other allergy status, other than to drugs and biological substances 09/30/2013 Resolved Problems Problem Noted Date Diagnosed Date Resolved Date Exacerbation of asthma 06/06/202307/26 Assessment & Plan (06/06/2023 7:32 PM CDT): Vital signs stable, no respiratory distress, nontoxic appearance, wheezing bilaterally on exam, 99% on RA Patient given 1 albuterol nebulizer treatment in clinic today, wheezing improved after treatment and patient reports feeling much better Prednisone 40 mg x 5 days Tessalon p.r.n. Albuterol inhaler, use every 4-6 hours as needed for wheezing Supportive care, rest, clear sugar-free fluids (water), steam inhalation/humidifier OTC medications (Flonase, Zyrtec/Claritin, Tylenol/Ibuprofen per package instructions) Return/ER precautions discussed Meningioma 02/27/2023 07/31/2024 Complex regional pain syndrome I, unspecified 10/04/19 23 07/31/2024 Moderate persistent asthma w ith (acute) exacerbation 10/04/2022 04/09/2024 Assessment & Plan (06/13/2023 2:24 PM CDT): Chronic. With exacerbation. Chest x-ray ordered for further evaluation. - we will continue prednisone taper for 5 more days at 20 mg - continue Mucinex and [id number] Robitussin - if cough is still bothersome at night, please contact us and may consider cough syrup with codeine Functional dyspepsia 10/04/2022 024 Depressive disorder 07/31/2022 07/31/20 24 Anxiety 07/31/2022 07/31/2024 Meningioma 12/05/2021 07/31/2024 Mild persistent asthma, well controlled 09/17/2016 06/14/2021 Pain in extremity 04/16/2013 07/31/2024 Immunizations Immunization Administration Dates Next Due Hib (PRP-D) 01/21/2015 Hib (PRP-OMP) 01/21/2015 Influenza, Quadrivalent, Rec ombinant, Egg Free, Preservative Free, Intramuscular 07/02/2018 Influenza, Trivalent, IM (MDV) 06/08/2016 Influenza, Unspecified 07/31/2024(Deferr ed: Patient Refused),05/26/2023(Deferred: Patient Refused),05/26/2023(Deferred: Patient decision),08/13/2022(Deferred: Patient Refused),07/04/2022(Deferred: Patient Refused),05/26/2022(Deferred: Patient Refused),08/15/2021(Deferred: Patient Refused),08/13/2021(Deferred: Patient Refused),05/27/2021(Deferred: Patient Refused),05/26/2021(Deferred: Patient Refused),05/26/2020(Deferred: Patient Refused),05/26/2020(Deferred: Patient Refused) Pneumococcal Polysaccharide PPV23 05/30/2018, Tdap 05/30/2018,01/21/2015 Social History Tobacco Use Types Packs/Day Years Used Date Smoking Tobacco: Former Cigarettes Q uit: 1992 Smokeless Tobacco: Never Tobacco Cessation:Counseling Given: Not Answered AUDIT-C Answer Date Recorded Q1: How often do you have a drink containing alc ohol? 2-4 times a month 07/31/2024 Q2: How many drinks containi ng alcohol do you have on a typical day when you are drinking? 1 or 2 07/31/2024 Q3: How often do you have si x or more drinks on one occasion? Never 07/31/2024 PHQ-2 Answer Date Recorded PHQ-2 Total Score (If total score is 3 or more points, staff should administer the PHQ-9) 1 07/31/2024 PHQ-9 Answer Date Recorded PHQ-9 Total Score 12 07/31/2024 Personal Safety Answer Date Recorded Have you ever been in or are you currently in a harmful physical or emotional relationship or is someone making you feel afraid or unsafe? Denies 06/03/2023 Comments No Sex and Gender Information Value Date Recorded Sex Assigned at Not on file Legal Sex Female 1:54 AM PSYCHIATRIC CNS Gender Identity Female 10/25/2021 3:40 PM PSYCHIATRIC CNS Sexual Orientation Straight 10/25/2021 3: 40 PM PSYCHIATRIC CNS Last Filed Vital Signs Vital Sign Reading Time Taken Comments Blood Pressure 126/84 07/31/2024 2:47 PM PSYCHIATRIC CNS Pulse 80 07/31/2024 2:47 PM PSYCHIATRIC CNS Temperature 36 C (96.8 F) 07/31/2024 2:47 PM PSYCHIATRIC CNS Respiratory Rate 12 07/31/2024 2:47 PM PSYCHIATRIC CNS Oxygen Saturation 96% 07/31/2024 2:47 PM PSYCHIATRIC CNS Inhaled Oxygen Concentration - - Weight 147.2 kg (324 lb 9.6 oz) 07/31/2024 2:47 PM PSYCHIATRIC CNS Height 174 cm (5' 8.5 ) 07/31/2024 2:47 PM PSYCHIATRIC CNS Body Mass Index 48.64 07/31/2024 2:47 PM PSYCHIATRIC CNS Plan of Treatment Not on file Procedures Procedure Name Priority Date/Time Associated Diagnosis Comments CT ABDOMEN WO CONTRAST Schedule Routine, Read Routine (OP Routine) 12/07/2024 5:51 PM CDT Disorder of adrenal gland, unspecified HEPATITIS C ANTIBODY Routine 09/02/2024 9:37 AM PSYCHIATRIC CNS Need for hepatitis C screening test SCREENING MAMMOGRAM BILATERAL W LAW Schedule Routine, Read Routine (OP Routine) 08/21/2022 3:24 PM PSYCHIATRIC CNS Screening mammogram, encounter for COLONOSCOPY Routine 09/12/2021 HM PAP SMEAR WITH HPV Routine 08/17/2020 from Last 3 Months or Most Recently Relevant to Health Maintenance Results * CT Abdomen WO Contrast (12/07/2024 5:51 PM CDT) Anatomical Region Laterality Modality Body N/A Computed Tomogra phy 12/08/2024 7:36 AM CDT Impressions 12/08/2024 7:36 AM CDT 1. Normal-appearing adrenal glands. 2. Minor opacities in the lingula likely inflammatory/infectious. 3. Additional details above. Electronically signed by: Franklin Murrieta M.D. Narrative 12/08/2024 7:[address] abdomen without contrast HISTORY: Disorder of adrenal glands. TECHNIQUE: Noncontrast CT abdomen. FINDINGS: There is mild atelectasis at the lung bases. Mild patchy opacities in the lingula likely inflammatory. No acute fracture. No acute bone destruction. Postop changes upper abdomen. Spleen size normal. Both adrenal glands appear normal. Both kidneys appear normal. There is no inflammation seen around the pancreas. Noncontrast images of the liver and gallbladder are within normal limits. There is no evidence of abdominal aortic aneurysm. There is no adenopathy or inflammatory change seen in the abdomen Procedure Note Franklin Murrieta MD - 12/08/2024 CT abdomen without contrast HISTORY: Disorder of adrenal glands. TECHNIQUE: Noncontrast CT abdomen. FINDINGS: There is mild atelectasis at the lung bases. Mild patchy opacities in the lingula likely inflammatory. No acute fracture. No acute bone destruction. Postop changes upper abdomen. Spleen size normal. Both adrenal glands appear normal. Both kidneys appear normal. There is no inflammation seen around the pancreas. Noncontrast images of the liver and gallbladder are within normal limits. There is no evidence of abdominal aortic aneurysm. There is no adenopathy or inflammatory change seen in the abdomen IMPRESSION: 1. Normal-appearing adrenal glands. 2. Minor opacities in the lingula likely inflammatory/infectious. 3. Additional details above. Electronically signed by: Franklin Murrieta M.D. Samantha Mcbride MD [facility] CT PROCEDURES Final R esult * Hepatitis C antibody Blood (09/02/2024 9:37 AM PSYCHIATRIC CNS) Hep C Ab Nonreactive Nonreactive Comment: Antibodies to HCV not detected. Does NOT exclude the possibility of recent exposure to HCV. Current interpretive data was last revised on 22 Interpretive Data Nonreactive: Antibodies to HCV not detected. Does NOT exclude the possibility of recent exposure to HCV. Equivocal: Equivocal for HCV antibodies. Supplemental molecular testing will be automatically performed to determine infection status in accordance with current CDC screening recommendations. Reactive: Positive for HCV antibodies. This may represent current or past HCV infection. Supplemental molecular testing will be automatically performed to determine current infection status in accordance with current CDC screening recommendations. Interpretive data was last revised on 2019. Blood 09/02/2024 9:37 AM PSYCHIATRIC CNS 09/02/2024 1:07 PM PSYCHIATRIC CNS us Dilcia Ivan MD LAB MICROBIOLOGY - GENERAL ORDERABLES Final Result [facility] [id number] [facility] Department [place] [address] * Screening Mammogram Bilateral W Law (08/21/2022 3:24 PM PSYCHIATRIC CNS) Anatomical Region Laterality Modality Breast Bilateral Mammography Impressions 08/24/2022 1:45 PM PSYCHIATRIC CNS BI-RADS ATLAS category (overall): 1 - Negative There is no mammographic evidence of malignancy. A 1 year screening mammogram is recommended. The patient has been or will be contacted. We recommend annual screening mammography for women at average risk of breast cancer beginning at age 40, based on guidelines of the [employer] (ACR Practice Parameter for the Performance of Screening and Diagnostic Mammography) and [employer]. For women with and elevated risk of breast cancer, please refer to the ACR Practice Parameter for specific screening recommendations. The patient will be entered into a reminder system with a target due date of 1 year for her next screening exam. Narrative 08/24/2022 1:45 PM PSYCHIATRIC CNS Screening Mammogram Bilateral W Law: 08/21/22 The study was acquired using full field digital technology and interpreted from soft copy. 2D digital mammographic views, as well as 3D digital tomosynthesis were performed in the CC and MLO projections. CLINICAL: Screening mammogram, encounter for. No relevant medical history has been documented for this patient. No known family history of breast cancer. COMPARISONS: 08/16/2020 Breast Imaging Screening Outside Reference 06/12/2019 Breast Imaging Screening Outside Reference 05/30/2018 Breast Imaging Screening Outside Reference 03/18/2017 Breast Imaging Screening Outside Reference BREAST TISSUE: The breasts are heterogeneously dense, which may obscure small masses. FINDINGS: There is no new suspicious finding in either breast on mammogram. Self Screening Mammogram IMG MAMMO PROCEDURES Fi nal Result * (ABNORMAL) Colonoscopy (09/12/2021) Anatomical Region Laterality Modality Other Historical Provider MD ENDOSCOPY PROCEDURES Edit ed Result - Final * HM PAP SMEAR WITH HPV (08/17/2020) Historical Provider HEALTH MAINTENANCE Final Result from Last 3 Months or Most Recently Relevant to Health Maintenance Insurance KDS ID KDS ID KDS ID Care Teams Groundman/Lineman Relationship Specialty Start Date End Date Dilcia Ivan MD [address] [place] [address] PCP - General Family Medicine 06/14/21
--- OUTSIDE RECORDS SUMMARY | 2024-12-21 18:09 | XMS_ITS | Clinical Summary ---
Author Organization [facility] Address [address] [place] [id number] Care Team Providers Care Dirt Supervisor Name Role Phone Kishan Sweeney MD Primary Care Provider [phone] Allergies Active Allergy Reactions Criticality Noted Date Comments Amitriptyline Rash High 03/27/2018 Bruising and blood vessel broken in eye Bruising and blood vessel broken in eye Erythromycin Itching Low 11/04/2014 Minocycline Itching Low 11/04/2014 Oxycodone-Acetaminophen Rash Low 03/17/2018 Ramelteon Itching Low 12/08/2015 rozerem (Sleeping aid) rozerem (Sleeping aid) Medications ALPRAZolam 0.5 MG tablet Take 0.5 mg by mouth 2 (two) times daily as needed. 04/19/2021 Active busPIRone 7.5 MG tablet Take 7.5 mg by mouth 2 (two) times a day. 04/19/2021 Active PROAIR HFA 108 (90 Base) MCG/ACT inhaler Inhale 2 puffs into the lungs every 4 (four) hours as needed. 04/14/2021 Active DULERA 200-5 MCG/ACT Aerosol Inhale 2 puffs into the lungs 2 (two) times a day. 04/14/2021 Active escitalopram 20 MG tablet Take 20 mg by mouth daily. 04/19/2021 Active traZODone 50 MG tablet Take 150 mg by mouth nightly. 03/30/2021 Active Social History Tobacco Use Types Packs/Day Years Used Date Smoking Tobacco: Never Smokeless Tobacco: Never Alcohol Use Standard Drinks/Week Comments Not Currently 0 (1 standard drink = 0.6 oz pur e alcohol) Comments No Sex and Gender Information Value Date Recorded Sex Assigned at Not on file Legal Sex Female 7:35 PM CDT Gender Identity Not on file Sexual Orientation Not on file Last Filed Vital Signs Vital Sign Reading Time Taken Comments Blood Pressure 118/78 04/21/2021 6:00 PM CDT Pulse 81 04/21/2021 6:00 PM CDT Temperature 37.2 C (99 F) 04/21/2021 3:46 PM CDT Respiratory Rate 24 04/21/2021 6:00 PM CDT Oxygen Saturation 99% 04/21/2021 6:00 PM CDT Inhaled Oxygen Concentration - - Weight 120 kg (264 lb 8.8 oz) 04/21/2021 3:46 PM CDT Height 172.7 cm (5' 8 ) 04/21/2021 3:46 PM CDT Body Mass Index 40.22 04/21/2021 3:46 PM CDT Plan of Treatment Health Maintenance Due Date Last Done Comments Cervical Cancer Screening Pa p Smear (Age 30 to 64) Every 3 Years 1974 Colorectal Cancer Screening Colonoscopy (10 Years) 1974 Annual Physical 1977 Hepatitis C 01/14/1992 Hepatitis B Vaccines (1 of 3 - 19+ 3-dose series) 1993 Cervical Cancer Screening Pa p with HPV Testing (Age 30 to 64) Every 5 Years 01/14/2004 Cervical Cancer Screening with HPV 01/14/2004 Mammogram Screening 2014 Pneumococcal Vaccine: 50+ Ye ars (2 of 2 - PCV) 01/14/2024 05/30/2018 Zoster Vaccines (1 of 2) 01/14/2024 COVID-19 Vaccine (1 - 2023-2 5 season) 2024 DTaP, Tdap and Td Vaccines ( 2 - Td or Tdap) 05/30/2028 05/30/2018 Meningococcal B Vaccine Aged Out No l onger eligible based on patient's age to complete this topic Meningococcal Vaccine Aged Out No katie samir eligible based on patient's age to complete this topic RSV Immunizations Under 20 Months Aged Out No longer eligible based on patient's age to complete this topic Insurance [facility] Care Teams Dirt Supervisor Relationship Specialty Start Date End Date Kishan Sweeney MD [address] [place] [id number] PCP - General INTERNAL MEDICINE 04/21/21
--- OUTSIDE RECORDS SUMMARY | 2024-12-21 18:09 | XMS_ITS | Encounter Summary ---
Author Organization [facility] Address [address] [place] [address] Phone Care Team Providers Care Parts Picker Name Role Phone Kishan Sweeney MD Primary Care Provider [phone] Dilcia Ivan MD Primary Care Provi beronica Skylar Huffman RN Unavailable [phone] Encounter Details Date Type Department Care Team (Latest Contact Info) Description 06/27/2017 Orders Only [facility] CONVERSION Scanning, Provider Social History Tobacco Use Types Packs/Day Years Used Date Smoking Tobacco: Former Comments Unknown Sex and Gender Information Value Date Recorded Sex Assigned at Not on file Legal Sex Female 1:54 AM MARKETING PROGRAMS SPECIALIST Gender Identity Female 10/25/2021 3:40 PM MARKETING PROGRAMS SPECIALIST Sexual Orientation Straight 10/25/2021 3: 40 PM MARKETING PROGRAMS SPECIALIST documented as of this encounter Plan of Treatment Not on file documented as of this encounter Procedures Procedure Name Priority Date/Time Associated Diagnosis Comments PULMONARY FUNCTION TEST (PFT) 06/27/2017 10:45 AM CDT documented in this encounter Results * PULMONARY FUNCTION TEST (PFT) (06/27/2017 10:45 AM CDT) Anatomical Region Laterality Modality PFT us Provider Scanning PFT ORDERABLES Final Result documented in this encounter Visit Diagnoses Not on filedocumented in this encounter Additional Health Concerns Infection Onset Date Last Indicated Resolved Time COVID: Suspected 06/06/2023 06/06/2023 06/06/2023 6:57 PM CDT COVID: Suspected 06/06/2023 06/06/2023 06/06/2023 10:57 PM CDT documented as of this encounter Care Teams Parts Picker Relationship Specialty Start Date End Date Kishna Sweeney MD [address] [place] [id number] PCP - General 06/26/17 06/13/21 Dilcia Ivan MD [address] [place] [id number] PCP - General Family Medicine 06/14/21 Skylar Huffman, RN [address] [place] [address] Nurse Navigator 03/01/23 07/29/23 documented as of this encounter
--- OUTSIDE RECORDS SUMMARY | 2024-12-21 18:09 | XMS_ITS ---
Author Organization [facility] Address [address] [place] [address] Care Team Providers Care Claim Processing Specialist Name Role Phone Samantha Mcbride Primary Care Provider REASON FOR VISIT 6 week f/u omer Encounters Encounter Location Date Provider Diagnosis [facility] - Samantha Mcbride [address] [place] [address] 11/05/2024 Samantha Mcbride Plan Of Treatment No Information Progress Notes * Dejon PETERSONfiliDOB:1975 (49 yo F)Acc No.[id number]:11/05/2024 Progress Notes Patient: Loly TANG Provider: Rosalind Mcbride MD :1975 A ge:49 Y S ex:Female Date:11/05/2024 Address:[address] [place] [address] Subjective: * Chief Complaints: * 1 . 6 week f/u omer. * Medical History: Objective: * Vitals: Assessment: Plan: * Treatment: * Billing Information: * Visit Code: * Procedure Codes: * Electronic signature of Cedrick Mcbride MD on 12/21/2024 at 06:08 PM CDT Sign off status: Pending * Provider: Rosalind Mcbride MD Date: 11/05/2024 Generated for Bijal chavarria/Suzy/eTransmitting on: 12/21/2024 06:08 PM CDT
--- OUTSIDE RECORDS SUMMARY | 2024-12-21 18:09 | XMS_ITS ---
[facility] Address [address] [place] [address] Care Team Providers Care Machine Whitener Name Role Phone Samantha Mcbride Primary Care Provider Allergies Allergen (clinical drug ingredient) Drug/Non Drug Allergy documented on EMR Reaction Allergy Type Onset Date Status minocycline Minocycline Unknown Drug Allergy Act mohamud topiramate Topiramate Unknown Drug Allergy Activ e ramelteon Ramelteon Unknown Drug Allergy Active prochlorperazine Prochlorperazine Unknown Drug Allergy Active gabapentin Gabapentin Unknown Drug Allergy Activ e erythromycin Erythromycin Unknown Drug Allergy A ctive amitriptyline Amitriptyline HCl Unknown Drug Allergy Active acetaminophen Acetaminophen Unknown Drug Allergy Active oxycodone oxyCODONE Unknown Drug Allergy Active REASON FOR VISIT lab f/u omer Medications Medication SIG (Take, Route, Frequency, Duration) Notes Start Date End Date Status Zepbound 5 MG/0.5ML inject 5 mg Subcutan eous once weekly for 28 days 07/16/2024 Unknown Furosemide 20 MG for 90 Days A ctive Metoprolol Succinate ER 50 MG for 90 Days Unknown Vraylar 1.5 MG TAKE 1 CAPSULE BY [facility] DAILY for 90 Days Active busPIRone HCl 7.5 MG 1 tab(s) orally 2 t imes a day for 30 days 04/21/2024 Active Dilt-XR 120 MG for 90 Days Unk nown clonazePAM 1 MG [facility] for 30 Days Unknown Escitalopram Oxalate 20 MG 1 tab(s) orally once a day for 30 days 04/21/2024 Unknown Naltrexone HCl 50 MG 1 tab(s) orally onc e a day for 12 days 04/21/2024 Unknown Vraylar 4.5 MG for 30 Days Unk nown Vyvanse 70 MG 1 cap(s) orally once a day (in the morning) Unknown Trelegy Ellipta 100-62.5-25 MCG/ACT 1 puff(s) inhaled once a day Unknown HYDROcodone Bitartrate ER 10 MG 1 cap(s) orally every 12 hours prn Unknown traZODone HCl 50 MG as directed orally Unknown Pantoprazole Sodium 40 MG for 30 Days Unknown metFORMIN HCl ER 500 MG 1 tab(s) orally once a day for 90 days 04/21/2024 Unknown Vitamin D (Ergocalciferol) 1.25 MG (93830 UT) 1 cap(s) orally once a week for 90 days 04/21/2024 Unknown Zepbound 2.5 MG/0.5ML inject 2.5 mg Subcutaneous once weekly for 30 days 07/16/2024 Not-Taking Escitalopram Oxalate 10 MG 1 tab(s) orally once a day for 30 days 04/21/2024 Not-Taking Problems Problem Type SNOMED Code ICD Code Onset Dates Problem Status W/U Status Risk Notes Problem Disorder of adrenal gland (83616667) Disorder of adrenal gland, 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 Problem Insomnia (240488596) Insomnia due to medical condition (G47.01) Active confirmed Problem Generalized anxiety disorder (54328487) Generalized anxiety disorder (F41.1) Active confirmed Vital Signs Blood pressure systolic 129 mm Hg 09/25/19 25 Blood pressure diastolic 82 mm Hg 025 Heart Rate 94 /min 09/25/2024 Height 68 in 09/25/2024 Weight 334 lbs 09/25/2024 BMI 50.78 kg/m2 09/25/2024 Encounters Encounter Location Date Provider Diagnosis [facility] - Samantha Mcbride [address] [place] [address] 09/25/2024 Samantha Mcbride Obesity, unspecified E66.9 ; Prediabetes R73.03 ; Disorder of adrenal gland, unspecified E27.9 ; Other fatigue R53.83 ; Insomnia due to medical condition G47.01 ; Generalized anxiety disorder F41.1 and Dietary counseling and surveillance Z71.3 Assessments Encounter Date Diagnosis (ICD Code) Assessment Notes Treatment Notes Treatment Clinical Notes Section Notes 09/25/2024 Obesity, unspecified (ICD-10 - E66.9) 09/25/2024 Prediabetes (ICD-10 - R73.03) 09/25/2024 Disorder of adrenal gland, unspecified (ICD-10 - E27.9) 09/25/2024 Other fatigue (ICD-10 - R53.83) 09/25/2024 Insomnia due to medical condition (ICD-10 - G47.01) 09/25/2024 Generalized anxiety disorder (ICD-10 - F41.1) 09/25/2024 Dietary counseling and surveillance (ICD-10 - Z71.3) 09/25/2024 Other Assessment and Plan: Suspected Adilene's SyndromePatient exhibits symptoms indicative of Darien's syndrome: weight gain, fatigue, bruising, and mood disturbances.Previou s laboratory findings: ACTH in the hensley zone and low DHEAS (<40).A dexamethasone suppression test was inconclusive due to a laboratory error.Actions: Obtain 24-hour urine cortisol test. Obtain salivary cortisol test. Seek approval for an adrenal CT scan. Continue current medications, including metformin and Zepbound. Continue cannabis use for pain management. DyslipidemiaRecent lipid panel: elevated total cholesterol (221), LDL (132), and triglycerides.High cortisol levels may be influencing dyslipidemia.Actions : Monitor lipid levels. Reassess after completing the Adilene's workup and potential treatment. Impaired Fasting GlucoseRecent A1c improved to 5.5%, but fasting glucose remains slightly elevated at 104 mg/dL, indicating impaired fasting glucose.Actions: Continue metformin as tolerated. Monitor blood glucose levels. Hypothyroidism (Stable)Recent thyroid function tests indicate well-controlled hypothyroidism with T4 and T3 levels within the target range.Actions: Continue current thyroid supplementation. Monitor for gastrointestinal side effects. Follow-up:Schedule a follow-up appointment to review lab results and assess the response to interventions.Encour age patient to contact the clinic if any new or worsening symptoms occur. Spent 15 minutes preventative counseling patient on dietary recommendations and changes in setting of hyperglycemia- need to restrict refined sugars and processed foods and incorporate up to 150 minutes of moderate level activity weekly. Spent 25 minutes preparing to see the patient (ex review of tests/chart), obtaining and / or reviewing separately obtained history, performing a medically appropriate examination and/or evaluation, counseling and educating the patient/family/careg iver, ordering medications, tests, or procedures, referring and communicating with other health acute care nurse practitioner, documenting clinical information in the electronic or other health record, independently interpreting results and communicating results to the patient/family/careg iver and care coordinating patient plan. Patient alert and oriented x 4 and aware of discussion noted above and in agreeance to plan in management of obesity/weight management, prediabetes, anxiety/insomnia, fatigue and concern for hypercortisolism. Plan Of Treatment Treatment Notes Assessment Notes Other Assessment and Plan: Suspected Darien's SyndromePatient exhibits symptoms indicative of Adilene's syndrome: weight gain, fatigue, bruising, and mood disturbances.Previous laboratory findings: ACTH in the hensley zone and low DHEAS (<40).A dexamethasone suppression test was inconclusive due to a laboratory error.Actions: Obtain 24-hour urine cortisol test. Obtain salivary cortisol test. Seek approval for an adrenal CT scan. Continue current medications, including metformin and Zepbound. Continue cannabis use for pain management. DyslipidemiaRecent lipid panel: elevated total cholesterol (221), LDL (132), and triglycerides.High cortisol levels may be influencing dyslipidemia.Actions: Monitor lipid levels. Reassess after completing the Darien's workup and potential treatment. Impaired Fasting GlucoseRecent A1c improved to 5.5%, but fasting glucose remains slightly elevated at 104 mg/dL, indicating impaired fasting glucose.Actions: Continue metformin as tolerated. Monitor blood glucose levels. Hypothyroidism (Stable)Recent thyroid function tests indicate well-controlled hypothyroidism with T4 and T3 levels within the target range.Actions: Continue current thyroid supplementation. Monitor for gastrointestinal side effects. Follow-up:Schedule a follow-up appointment to review lab results and assess the response to interventions.Encourage patient to contact the clinic if any new or worsening symptoms occur. Spent 15 minutes preventative counseling patient on dietary recommendations and changes in setting of hyperglycemia- need to restrict refined sugars and processed foods and incorporate up to 150 minutes of moderate level activity weekly. Spent 25 minutes preparing to see the patient (ex review of tests/chart), obtaining and / or reviewing separately obtained history, performing a medically appropriate examination and/or evaluation, counseling and educating the patient/family/caregiver, ordering medications, tests, or procedures, referring and communicating with other health acute care nurse practitioner, documenting clinical information in the electronic or other health record, independently interpreting results and communicating results to the patient/family/caregiver and care coordinating patient plan. Patient alert and oriented x 4 and aware of discussion noted above and in agreeance to plan in management of obesity/weight management, prediabetes, anxiety/insomnia, fatigue and concern for hypercortisolism. Pending Test Test Name Order Date CT adrenal gland W/WO 09/25/2024 Next Appt Details Follow Up: 2 Months, Reason: labwork Progress Notes * Loly PETERSONDOB:1975 (49 yo F)Acc No.[id number]:09/25/2024 Progress Notes Patient: Loly TANG Provider: Rosalind Mcbride MD :1975 A ge:49 Y S ex:Female Date:09/25/2024 Address:[address] [place] [address] Subjective: * Chief Complaints: * 1 . Lab f/u omer. * HPI: I nterval Hx: [age] yo female comes in for follow up in management of prediabetes, fatigue and autoimmune thyroiditis. C oncern for hypercortisolism however we need to repeat DST and urine studies. At last visit in Jun we sent patient for DST. we continued metformin and recommended thyroid support for her thyroid. Loly reports ongoing concerns about potential Darien's syndrome, with symptoms including fatigue, bruising, and mood disturbances. Previous lab work showed ACTH in the hensley zone and low DHEAS, but a dexamethasone suppression test failed due to a lab error. The clinician plans to pursue a full Darien's workup, including 24- hour urine and salivary cortisol tests, and seek approval for an adrenal CT scan. Loly's lipid panel shows elevated cholesterol and triglycerides, and her fasting glucose is slightly elevated. She continues on metformin, Zepbound, and cannabis for pain management. The patient reports ongoing concerns about potential Adilene's syndrome. She underwent lab tests on September 02, including a dexamethasone suppression test, but there was an error with the cortisol measurement. The patient's current weight is 334 lbs. She experiences fatigue, reporting difficulty with household tasks and feeling exhausted after minimal activity. The patient also notes issues with sleep, anxiety, depression, and racing thoughts. She has observed increased bruising. The patient is currently taking metformin without side effects. She is also using Zepbound and reports that a thyroid supplement caused severe heartburn. The patient is using cannabis for pain management with some improvement. She experiences episodes of tachycardia, palpitations, and hypertension. The patient's mother has been diagnosed with non-small cell lung cancer, with the tumor located near the aorta and mediastinum, complicating biopsy attempts. 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) - Hyperlipidemia - Anxiety - Depression - Sleep disturbances Current and Past Medications and Supplements - Metformin - Zepbound - Thyroid supplement (discontinued due to side effects) - Cannabis Social History - Substance use: Uses cannabis for pain management - Stress levels and coping mechanisms: Reports difficulty with energy levels, struggles to clean house, feels exhausted after tidying - Social support: Mother has non-small cell lung cancer Review of Systems - General: Fatigue, lack of energy - Cardiovascular: Episodes of racing/fluttering heart, high blood pressure - Skin: Bruising - Psychiatric: Anxiety, depression, racing thoughts - Sleep: Struggling with sleep - Gastrointestinal: Severe heartburn (from thyroid supplement). * ROS: E NDOCRINOLOGY: fatigue y es. n o e xcessive sweating. n o e xcessive thirst. n o e xcessive urination. n o w eight loss. n o s leep disturbance. c old intolerance y es. h eat intolerence y es. n o t hyroid disease. n o i ncreased loss of hair. n o h x of borderline diabetes. n o d iabetes. n o a bdormal body hair. n o r heumatism. n o c hanges in skin texture.? N EUROLOGY: headache y es. t ingling numbness y es. n o?seizures. n o i nsomnia. n o m kiana loss. d izziness y es. n o g ait abnormality. n o c hange in sensation anywhere on body. n o l ocalized weakness or numbness. n o b lackouts or near blackouts. n o m igraine. n o t remors.?no f ainting spells. n o h ead injury. n o s troke. O PTHALMOLOGY: no d iminished vision. n o e ye irritation. n o?drainage from eyes. n o b lurring of vision. n o s easonal eye sx. n o?dander related eye sx. n o l oss of vision. n o c ataracts. n o g lasses/contacts. n o g laucoma. n o d etached retina. n o m acular degeneration.?no e ye redness. R ESPIRATORY: shortness of breath y es. n o c hest pain. n o?wheezing. n o a sthma. n o b reathlessness when lying flat. n o p rolonged cough. n o f requent infections (bronchitis). n o e mphysema. n o c hest congestion. n o s leep apnea. A LLERGY: no r unny nose. n o s cratchy throat. n o i tchy eyes. n o e ar fullness. n o s inus congestion. n o s tuffy nose. n o w atery eyes. n o s easonal allergies. n o h ay fever. n o a llergy.?no p olyps. n o s neezing. H EMATOLOGY/LYMPH: no s wollen glands. n o f atigue. n o l oss of appetite. e asy bruising yes. n o e asy bleeding. n o a nemia. ? U ROLOGY: no d ifficulty urinating. n o b lood in urine. n o u rinary urgency. n o f requent urination. n o u rinary incontinence. n o v oiding dysfunction. n o v ulvodynia. n o d ysparaunia. n o r ecurrent UTI. n o w eak flow. n o d ribbling after urination. n o f requent bladder infections. n o k idney stone. n o k idney disease. n o u rine hesitancy.?no p ainful urination. N UTRITION: greater than body requirmemts y es. L ess than body requirements y es. a ppropriate / adequate y es, y es. C ONSTITUTIONAL: weight gain y es. n o l oss of appetite. n o?fever. w eakness y es. n o w eight loss. n o n ight sweats. n o n ausea. n o v isual changes. n o c hange in sleep patterns. h +p reviewed y es, R OS form reviewed with patient see scan for detail. n o c hange in activity capacity. D ERMATOLOGY: no r elver. n o c hange in color of moles. n o?lumps. n o d ry or sensitive skin. n o h jazmine. n o o dorian skin. n o?acne. n o m oles-irregular. n o m oles-change/new. n o b oils. n o dandruff. n o e xcessive body odor. n o p soriasis. n o f ungal infections. n o n ail problems. n o r edness/inflammation. n o a thlete's foot. n o s kin cancer. n o e czema. E NT: no c old. c ough y es. n o c oughing blood.?no n ose bleed. n o h earing loss. n o c hange in voice. n o s ore throat. r inging in ears y es. n o s noring. n o e ar pain. n o r unny nose. n o w atery eyes. n o s inus infection. n o e ar infection. n o f acial pain. n o h oarseness. n o g oiter. n o g um problems. n o?postnasal drip. n o f requent nosebleeds. C ARDIOLOGY: no c hest pain. n o p alpitations. n o l eg swelling. n o d izziness. s hortness of breath y es. n o v aricose veins.?no l eg cramps. n o c old hands or feet. n o h igh blood pressure. n o ankle swelling. n o c ardiac catheterization. n o h eart attacks. n o a ngina. n o m urmurs. n o l ow blood pressure. n o l eg pain that resolves w/rest. n o p urple fingers or lips. n o i rregular heart rate. n o c ongenital heart defects. n o d izziness when standing up quickly. n o a wakening at night short of breath. G ASTROENTEROLOGY: nausea y es. n o h eartburn. n o s tool incontinence. n o r eflux. n o a bdominal pain. n o i ndigestion. n o h emorrhoids. n o h iatal hernia. n o u lcers. n o a nal fissures. n o?hepatitis. n o g allstones. n o r ed blood after bowel movements. n o v omiting. n o b loating/belching. d ifficulty swallowing y es. n o d iarrhea.?no c onstipation. n o c hange in bowel habits. n o b lood in stool. ? M USCULOSKELETAL: no j oint swelling. j oint pain y es. n o l eg cramps. j oint stiffness y es. n o a rthritis. b ack pain y es. n o?muscle aches. n o m orning stiffness. n o t endinitis. n o n pietro pain. no b ursitis. n o b one marrow biopsy. n o g out. a ctivity intolerance?weakness. n o f racture. P SYCHOLOGY: high stress level y es. d epression y es. n o?sleep disturbances. n o r grayson sx worse with stress. n o s uicidal ideation. n o e ating disorder. n o m ental or physical abuse. n o a nxiety. n o h eadaches. d isease state y es. F EMALE REPRODUCTIVE: no h eavy periods. n o d ysparaunia. n o s exually active. n o p remenstrual syndrome. n o d ysmenorrhea. n o i nfertility. n o f requent yeast infections. n o v aginal itching. n o i ntermenstrual bleeding. n o p ost coital bleeding. n o p ostmenopausal bleeding. n o p elvic pain. n o m enstral cycle. n o v aginal discharge. n o v aginal dryness. n o o varian cysts. n o f ibroids. n o d ischarge from breast. n o abn. bleeding between cycles. n o p ostmenopausal symptoms. n o l oss of sexual interest. n o p ainful sexual intercourse. n o e ndometriosis. n o v aginal warts. n o a bnormal pap. n o i rregular periods. n o a bnormal vaginal discharge. n o h ot flashes. S PUTUM CHANGE IN APPETITE NERVOUSNESS. * Medical History: A rthritis, ADHD, Gastric Fistula, Tachycardia, Intracranial Meningioma, Lung Nodule, Fibramyalgia, Esophageal reflux, Hypogammaglobulinemia, Corneal Dystrophy, Fibromyalgia, Attention deficit hyperactivity disorder, predominantly inattentive type, Tachycardia, unspecified. * Surgical History: m andible set back surgery , Right Breast Lumpectomy , Biopsy of right breast , gastric bypass , Salpingectomy , Oophorectomy . * Hospitalization/Major Diagno stic Procedure: C ovid-19 three times. , broken right hand . * Family History: F ather: diagnosed with Cancer, Hypertension, Heart Disease. M other: diagnosed with Cancer, Hypertension, Heart Disease. P aternal Grand Father: diagnosed with Heart Disease. M aternal Grand Father: diagnosed with Heart Disease. Diabetes- Grandmoth, Aunts. High Cholesterol- Father & Mother. Thyroid Problems- Grandmother. Osteoporosis- Mother. Fractures- Mother. Asthma/COPD- Mother. Cancer- Grandfather. * Social History: S moking: no . R ecreational drug use: no. Alcohol: no. * Medications: T aking Furosemide 20 MG Tablet , Taking busPIRone HCl 7.5 MG Tablet 1 tab(s) orally 2 times a day , Taking Vraylar(Cariprazine HCl) 1.5 MG Capsule TAKE 1 CAPSULE BY MOUTH DAILY , Not-Taking/PRN Escitalopram Oxalate 10 MG Tablet 1 tab(s) orally once a day , Not-Taking/PRN Zepbound(Tirzepatide-Weight Management) 2.5 MG/0.5ML Solution Auto-injector inject 2.5 mg Subcutaneous once weekly , Discontinued dexAMETHasone 1 MG Tablet 1 tab(s) orally once , Unknown metFORMIN HCl ER 500 MG Tablet Extended Release 24 Hour 1 tab(s) orally once a day , Unknown Vitamin D (Ergocalciferol) 1.25 MG (61107 UT) Capsule 1 cap(s) orally once a week , Unknown Trelegy Ellipta(Vzszbnqbiie-Hseaccwag-Uoeivq) 100-62.5-25 MCG/ACT Aerosol Powder Breath Activated 1 puff(s) inhaled once a day , Unknown HYDROcodone Bitartrate ER 10 MG Capsule Extended Release 12 Hour 1 cap(s) orally every 12 hours , Notes to Pharmacist: prn, Unknown Vyvanse(Lisdexamfetamine Dimesylate) 70 MG Capsule 1 cap(s) orally once a day (in the morning) , Unknown traZODone HCl 50 MG Tablet as directed orally , Unknown Pantoprazole Sodium 40 MG Tablet Delayed Release , Unknown Naltrexone HCl 50 MG Tablet 1 tab(s) orally once a day , Unknown Vraylar(Cariprazine HCl) 4.5 MG Capsule , Unknown clonazePAM 1 MG Tablet TAKE 1 TABLET BY MOUTH 3 TIMES NEEDED DAILY , Unknown Escitalopram Oxalate 20 MG Tablet 1 tab(s) orally once a day , Unknown Dilt-XR(dilTIAZem HCl ER) 120 MG Capsule Extended Release 24 Hour , Unknown Metoprolol Succinate ER 50 MG Tablet Extended Release 24 Hour , Unknown Zepbound(Tirzepatide-Weight Management) 5 MG/0.5ML Solution Auto-injector inject 5 mg Subcutaneous once weekly * Allergies: E rythromycin, Minocycline, Amitriptyline HCl, Gabapentin, Prochlorperazine, Ramelteon, Topiramate, oxyCODONE, Acetaminophen. Objective: * Vitals: H R: 94, BP: 129/82, Ht: 68, Wt:334, BMI: 50.78. * P ast Orders: L ab:DEXAMETHASONE (Order Date - 09/03/2024) (Collection Date & Time - 09/03/2024 07:15 AM) Value Reference Range DEXAMETHASONE 305 - ng/dL L ab:CORTISOL, TOTAL (Order Date - 09/02/2024) (Collection Date & Time - 09/02/2024 08:12 AM) Value Reference Range CORTISOL, TOTAL 16.9 - mcg/dL L ab:TSH (Order Date - 09/02/2024) (Collection Date & Time - 09/02/2024 08:10 AM) Value Reference Range TSH 1.84 - mIU/L L ab:HEMOGLOBIN A1c (Order Date - 09/02/2024) (Collection Date & Time - 09/02/2024 08:10 AM) Value Reference Range HEMOGLOBIN A1c 5.5 <5.7 - % of total Hg b L ab:T3, FREE (Order Date - 09/02/2024) (Collection Date & Time - 09/02/2024 08:10 AM) Value Reference Range T3, FREE 3.3 2.3-4.2 - pg/mL L ab:ACTH, PLASMA (Order Date 09/02/2024) (Collection Date & Time - 09/02/2024 08:10 AM) Value Reference Range ACTH, PLASMA 20 6-50 - pg/mL L ab:T4, FREE (Order Date 09/02/2024) (Collection Date & Time - 09/02/2024 08:10 AM) Value Reference Range T4, FREE 1.1 0.8-1.8 - ng/dL L ab:COMPREHENSIVE METABOLIC PANEL (Order Date 09/02/2024) (Collection Date & Time - 09/02/2024 08:10 AM) Value Reference Range GLUCOSE 104 H 65-99 - mg/dL UREA NITROGEN (BUN) 11 7-25 - mg/dL CREATININE 0.97 0.50-1.03 - mg/dL BUN/CREATININE RATIO SEE NOTE: 02-14 - (calc) SODIUM 142 135-146 - mmol/L POTASSIUM 4.5 3.5-5.3 - mmol/L CHLORIDE 104 98-110 - mmol/L CARBON DIOXIDE 28 20-32 - mmol/L CALCIUM 9.3 8.6-10.4 - mg/dL PROTEIN, TOTAL 6.3 6.1-8.1 - g/dL ALBUMIN 4.1 3.6-5.1 - g/dL GLOBULIN 2.2 1.9-3.7 - g/dL (calc ) ALBUMIN/GLOBULIN RATIO 1.9 1.0-2.5 - (calc) BILIRUBIN, TOTAL 0.4 0.2-1.2 - mg/dL ALKALINE PHOSPHATASE 99 37-153 - U/L AST 15 10-35 - U/L ALT 14 6-29 - U/L EGFR 71 > OR = 60 - mL/min/1.73m2 L ab:LIPID PANEL (Order Date 09/02/2024) (Collection Date & Time - 09/02/2024 08:10 AM) Value Reference Range TRIGLYCERIDES 168 H <150 - mg/dL CHOLESTEROL, TOTAL 221 H <200 - mg/dL HDL CHOLESTEROL 58 > OR = 50 - mg/dL LDL-CHOLESTEROL 132 H - mg/dL (calc) CHOL/HDLC RATIO 3.8 <5.0 - (calc) NON-HDL CHOLESTEROL 163 H <130 - mg/dL (calc) L ab:DHEA SULFATE (Order Date - 09/02/2024) (Collection Date & Time - 09/02/2024 08:10 AM) Value Reference Range DHEA SULFATE 18 15-205 - mcg/dL * Examination: G eneral Examination: General n ormal, NAD, well nourished and hydrated, pleasant obese female. Neck, thyroid : s upple. Heart: B P wnl, RSR, no murmurs. Lungs: n ormal, respirations easy with conversation and ambulation. Abdomen: n ormal, round, non-distended. Neurologic exam: u nremarkable. Extremities: u nremarkable. Peripheral pulses: n ormal (2+) bilaterally . Psych: o rientation to person, place & situation, appropriate judgment noted. Assessment: * Assessment: 1. O besity, unspecified - E66.9 (Primary) 2 . P rediabetes - R73.03 ? 3 . D isorder of adrenal gland, unspecified - E27.9 4 . O ther fatigue - R53.83 5 . I nsomnia due to medical condition - G47.01 6 . G eneralized anxiety disorder - F41.1 7 . D ietary counseling and surveillance - Z71.3 Plan: * Treatment: 2. O thers Notes:Assessment and Plan: Suspected Darien's SyndromePatient exhibits symptoms indicative of Adilene's syndrome: weight gain, fatigue, bruising, and mood disturbances.Previous laboratory findings: ACTH in the hensley zone and low DHEAS (<40).A dexamethasone suppression test was inconclusive due to a laboratory error.Actions: Obtain 24-hour urine cortisol test. Obtain salivary cortisol test. Seek approval for an adrenal CT scan. Continue current medications, including metformin and Zepbound. Continue cannabis use for pain management. DyslipidemiaRecent lipid panel: elevated total cholesterol (221), LDL (132), and triglycerides.High cortisol levels may be influencing dyslipidemia.Actions: Monitor lipid levels. Reassess after completing the Darien's workup and potential treatment. Impaired Fasting GlucoseRecent A1c improved to 5.5%, but fasting glucose remains slightly elevated at 104 mg/dL, indicating impaired fasting glucose.Actions: Continue metformin as tolerated. Monitor blood glucose levels. Hypothyroidism (Stable)Recent thyroid function tests indicate well-controlled hypothyroidism with T4 and T3 levels within the target range.Actions: Continue current thyroid supplementation. Monitor for gastrointestinal side effects. Follow-up:Schedule a follow-up appointment to review lab results and assess the response to interventions.Encourage patient to contact the clinic if any new or worsening symptoms occur. Spent 15 minutes preventative counseling patient on dietary recommendations and changes in setting of hyperglycemia- need to restrict refined sugars and processed foods and incorporate up to 150 minutes of moderate level activity weekly. Spent 25 minutes preparing to see the patient (ex review of tests/chart), obtaining and / or reviewing separately obtained history, performing a medically appropriate examination and/or evaluation, counseling and educating the patient/family/caregiver, ordering medications, tests, or procedures, referring and communicating with other health acute care nurse practitioner, documenting clinical information in the electronic or other health record, independently interpreting results and communicating results to the patient/family/caregiver and care coordinating patient plan. Patient alert and oriented x 4 and aware of discussion noted above and in agreeance to plan in management of obesity/weight management, prediabetes, anxiety/insomnia, fatigue and concern for hypercortisolism. * Procedure Codes: 9 9401 P/M CORROSION ENGINEER, INDIV 15 MIN * Follow Up: 2 Months (Reason: labwork) * Billing Information: * Visit Code: 82150 Office Visit, Est Pt., Level 4. * Procedure Codes: 96945 P/M CORROSION ENGINEER, INDIV 15 MIN. * OR PILOT Sign off status: Completed true * Provider: Rosalind Mcbride MD Date: 09/25/2024 Generated for Bijal chavarria/Suzy/eThopeitting on: 0 12/21/2024 06:09 PM CDT History and Physical Notes * HPI (History of Present Illness) Category Sub-Category Detail Notes Category Not es Interval Hx 49 yo female comes in for follow up in management of prediabetes, fatigue and autoimmune thyroiditis. Concern for hypercortisolism however we need to repeat DST and urine studies. At last visit in Jun we sent patient for DST. we continued metformin and recommended thyroid support for her thyroid. Loly reports ongoing concerns about potential Adilene's syndrome, with symptoms including fatigue, bruising, and mood disturbances. Previous lab work showed ACTH in the hensley zone and low DHEAS, but a dexamethasone suppression test failed due to a lab error. The clinician plans to pursue a full Adilene's workup, including 24-hour urine and salivary cortisol tests, and seek approval for an adrenal CT scan. Loly's lipid panel shows elevated cholesterol and triglycerides, and her fasting glucose is slightly elevated. She continues on metformin, Zepbound, and cannabis for pain management. The patient reports ongoing concerns about potential Darien's syndrome. She underwent lab tests on September 02, including a dexamethasone suppression test, but there was an error with the cortisol measurement. The patient's current weight is 334 lbs. She experiences fatigue, reporting difficulty with household tasks and feeling exhausted after minimal activity. The patient also notes issues with sleep, anxiety, depression, and racing thoughts. She has observed increased bruising. The patient is currently taking metformin without side effects. She is also using Zepbound and reports that a thyroid supplement caused severe heartburn. The patient is using cannabis for pain management with some improvement. She experiences episodes of tachycardia, palpitations, and hypertension. The patient's mother has been diagnosed with non-small cell lung cancer, with the tumor located near the aorta and mediastinum, complicating biopsy attempts. 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) - Hyperlipidemia - Anxiety - Depression - Sleep disturbances Current and Past Medications and Supplements - Metformin - Zepbound - Thyroid supplement (discontinued due to side effects) - Cannabis Social History - Substance use: Uses cannabis for pain management - Stress levels and coping mechanisms: Reports difficulty with energy levels, struggles to clean house, feels exhausted after tidying - Social support: Mother has non-small cell lung cancer Review of Systems - General: Fatigue, lack of energy - Cardiovascular: Episodes of racing/fluttering heart, high blood pressure - Skin: Bruising - Psychiatric: Anxiety, depression, racing thoughts - Sleep: Struggling with sleep - Gastrointestinal: Severe heartburn (from thyroid supplement) Examination Category Sub-Category Detail Notes Category Not es General Examination Neck, thyroid : supple Heart: BP wnl, RSR, no murm urs Lungs: normal, respirations easy with conversation and ambulation Abdomen: normal, round, non-d istended Extremities: unremarkable General normal, NAD, well no urished and hydrated, pleasant obese female Neurologic exam: unremarkable Peripheral pulses: normal (2+) bilatera lly Psych: orientation to perso n, place & situation, appropriate judgment noted
--- OUTSIDE RECORDS SUMMARY | 2024-12-21 18:09 | XMS_ITS | Encounter Summary ---
Author Organization [facility] Address [address] [place] [address] Care Team Providers Care Trim Mechanic Name Role Phone Kishan Sweeney MD Primary Care Provider [phone] Encounter Details Date Type Department Care Team (Late st Contact Info) Description 01/31/2019 Abstract [facility]FL CONVERSION [address] [place] [address] , Generic Conversion, Social History Tobacco Use Types Packs/Day Years Used Date Smoking Tobacco: Never Assessed Comments Unknown Sex and Gender Information Value Date Recorded Sex Assigned at Not on file Legal Sex Female 7:35 PM CDT Gender Identity Not on file Sexual Orientation Not on file documented as of this encounter Plan of Treatment Not on file documented as of this encounter Visit Diagnoses Not on filedocumented in this encounter Additional Health Concerns Infection Onset Date Last Indicated Resolved Time COVID-19 Confirmed 04/21/2021 04/21/2021 12:32 AM CDT documented as of this encounter Care Teams Trim Mechanic Relationship Specialty Start Date End Date Kishan Sweeney MD [address] [place] [id number] PCP - General INTERNAL MEDICINE 04/21/21 documented as of this encounter
--- OUTSIDE RECORDS SUMMARY | 2024-12-21 18:09 | XMS_ITS | Clinical Summary ---
Author Organization [facility] Address [address] [place] [address] Care Team Providers Care Industrial Equipment Wirer Name Role Phone Dilcia Ivan MD Primary Care Provider [phone] Source Comments [facility],non-owned Affiliates and Associated Physician Practices is amultiple site organization consisting of ambulatory clinics and hospital sitesin [place], [place], [place] and [place]. This disclosure is being madepursuant to the Care Everywhere program and may not contain all information available regarding this patient. Last updated 18.[facility] Allergies Active Allergy Reactions Criticality Noted Date Comments Erythromycin Itching Low 11/04/2014 Minocycline Itching Low 11/04/2014 Medications * Be aware that medications may not be up to date on this document. Alwaysverify current medications with the patient. Multiple Minerals-Vitami ns (CALCIUM [id number] ERALS PO) Active CANNABIDIOL PO Activ e VITAMIN D, CHOLECALCIFEROL , PO Dissolve 5 drops under the tongue Active CETIRIZINE HCL OP Take 10 mg by mouth once daily Active MULTIPLE VITAMINS-MINERA LS PO Take 1 tablet by mouth once daily Active acetaminophen (TYLENOL) 500 MG tablet 1 tab(s) orally every 6 hours, As Needed - PRN aches and pain Active albuterol HFA (PROVENTIL; VENTOLIN; PROAIR) 108 (90 Base) MCG/ACT inhaler 2 puff(s) inhaled 4 times a day, As Needed - PRN wheezing 05/20/2020 Active ALPRAZolam (XANAX) 0.5 MG tablet Take 0.5 mg by mouth 03/17/2021 Active Ascorbic Acid (VITAMIN C CR) 1000 MG 1 tab(s) orally 2 times a day Active brexpiprazole (REXULTI) 2 MG tablet 01/25/2021 Active busPIRone (BUSPAR) 7.5 MG tablet Take 7.5 mg by mouth 2 times daily 03/14/2020 Active escitalopram (LEXAPRO) 10 MG tablet TAKE 1 TABLET BY MOUTH EVERY DAY IN THE EVENING WITH FOOD 07/13/2020 Active Evening Gentry Oil 1000 MG Take 1,000 mg by mouth once daily Active fluticasone diskus (FLOVENT DISKUS) 100 MCG/BLIST AEPB inhaler Inhale 2 puffs by mouth 2 times daily Active furosemide (LASIX) 20 MG tablet 1 tab(s) orally once a day, As Needed - PRN fluid overload 05/29/2021 Active HYDROcodone-huseyin taminophen (NORCO) 10-325 MG tablet TAKE ONE HALF TABLET TO ONE WHOLE TABLET BY MOUTH EVERY 8 HOURS NEEDED FOR PAIN 04/03/2021 Active lisdexamfetamin e (VYVANSE) 30 MG capsule Take 30 mg by mouth 08/11/2020 Active lithium oral 8 MEQ/5ML solution Active mometasone-form oterol (DULERA) 200-5 MCG/ACT inhaler 05/20/2020 Active ondansetron (ZOFRAN) 4 MG tablet 08/11/2020 Active pantoprazole EC (PROTONIX) 40 MG tablet 1 tab(s) orally once a day 08/20/2020 Active potassium chloride ER (KLOR-CON) 10 MEQ tablet 1 tab(s) orally once a day, As Needed - PRN fluid overload Active solifenacin (VESICARE) 10 MG tablet Take 1 tablet by mouth once daily 08/16/2020 Active tiZANidine (ZANAFLEX) 2 MG tablet 1-2 tab(s) orally every 8 hours, As Needed - PRN muscle spasm 07/15/2020 Active traZODone (DESYREL) 50 MG tablet Take 150 mg by mouth 03/30/2021 Active Active Problems Problem Noted Date Diagnosed Date Other chronic sinusitis 11/04/2014 Other allergy status, other than to drugs and biological substances 09/30/2013 Other diseases of vocal cords 09/30/2013 Uncomplicated asthma 09/30/2013 Family History Medical History Relation Name Comments Amblyopia Brother Arthritis - Rheumatoid Brother CVA Brother Arthritis - Rheumatoid Father Heart Disease Father High Cholesterol Father Hypertension Father Cancer Maternal Aunt Heart Disease Maternal Grandfather Hypertension Maternal Grandfather Blindness Maternal Grandmother Glaucoma Maternal Grandmother Hypertension Maternal Grandmother Cancer Maternal Uncle Anxiety Disorder Mother Arthritis - Rheumatoid Mother Depression Mother Eczema Mother High Cholesterol Mother Hypertension Mother Osteoporosis Mother Diabetes Paternal Aunt Cancer Paternal Grandfather Hypertension Paternal Grandfather Diabetes Paternal Grandmother Hypertension Paternal Grandmother Relation Name Status Comments Brother Father Maternal Aunt Maternal Grandfather Maternal Grandmother Maternal Uncle Mother Paternal Aunt Paternal Grandfather Paternal Grandmother Social History Tobacco Use Types Packs/Day Years Used Date Smoking Tobacco: Former Cigarettes Q uit: 09/29/1999 Smokeless Tobacco: Never Alcohol Use Standard Drinks/Week Comments Yes 0 (1 standard drink = 0.6 oz pur e alcohol) Comments Unknown Sex and Gender Information Value Date Recorded Sex Assigned at Not on file Legal Sex Female 6:19 PM ORTHOPAEDIC TECHNOLOGIST Gender Identity Not on file Sexual Orientation Not on file Last Filed Vital Signs Vital Sign Reading Time Taken Comments Blood Pressure 132/80 07/12/2021 1:40 PM ORTHOPAEDIC TECHNOLOGIST Pulse 86 07/12/2021 1:40 PM ORTHOPAEDIC TECHNOLOGIST Temperature 36.3 C (97.4 F) 07/12/2021 1:40 PM ORTHOPAEDIC TECHNOLOGIST Respiratory Rate 12 12/01/2014 1:11 PM CDT Oxygen Saturation - - Inhaled Oxygen Concentration - - Weight 125.6 kg (277 lb) 07/12/2021 1:40 PM ORTHOPAEDIC TECHNOLOGIST Height 172.7 cm (5' 8 ) 07/12/2021 1:40 PM ORTHOPAEDIC TECHNOLOGIST Body Mass Index 42.12 07/12/2021 1:40 PM ORTHOPAEDIC TECHNOLOGIST Plan of Treatment Health Maintenance Due Date Last Done Comments COLOGUARD (AGES 45-75) - COL ON CA SCREENING 1974 COLON MONITORING 1974 COLONOSCOPY - COLON CA SCREENING 1974 CT COLONOGRAPHY - COLON CA SCREENING 1974 Colorectal Cancer Screening 1974 FIT - COLON CA SCREENING 1974 FLEX SIG - COLON CA SCREENING 1974 LIPID TESTING 1974 MAMMOGRAM 1974 HIV SCREENING 1989 DTAP/TDAP/TD VACCINES (1 - Tdap) 1993 HEPATITIS B VACCINE (1 of 3 - 19+ 3-dose series) 1993 PNEUMOCOCCAL VACCINE 50+ (1 of 1 - PCV) 01/14/2024 ZOSTER VACCINE (1 of 2) 01/14/2024 COVID-19 VACCINE (1 - 2023-2 5 season) 2024 SCREENING FOR DIABETES 07/19/2024 07/19/2021 DEPRESSION SCREENING 08/26/2024 INFLUENZA VACCINE (Season Ended) 2025 HEPATITIS C SCREENING Completed 07/19/2021 HIB VACCINE Aged Out No longer eligi ble based on patient's age to complete this topic HPV VACCINE Aged Out No longer eligi ble based on patient's age to complete this topic MENINGOCOCCAL (Group B) VACC INE SHARED DECISION-MAKING Aged Out No longer eligibl e based on patient's age to complete this topic MENINGOCOCCAL GROUPS A/C/Y/W VACCINE Aged Out No longer eligible b ased on patient's age to complete this topic Procedures Procedure Name Priority Date/Time Associated Diagnosis Comments COMPREHENSIVE METABOLIC PANEL Routine 07/19/2021 2:03 PM ORTHOPAEDIC TECHNOLOGIST Polyarteritis Vitamin D deficiency HEPATITIS SCREEN ACUTE Routine 2:03 PM ORTHOPAEDIC TECHNOLOGIST Polyarteritis Vitamin D deficiency from Last 3 Months or Most Recently Relevant to Health Maintenance Results * COMPREHENSIVE METABOLIC PANEL (07/19/2021 2:03 PM ORTHOPAEDIC TECHNOLOGIST) Pathologist [facility] Glucose 96 65 - 139 mg/dL [facility] Comment: Non-fasting reference interval BUN 16 7 - 25 mg/dL [facility] Creatinine 0.96 0.50 - 1.10 mg/dL [facility] eGFR by MDRD 70 > OR = 60 mL/min/1. 73m2 [facility] eGFR by MDRD 82 > OR = 60 mL/min/1. 73m2 [facility] BUN/Creatinine Ratio NOT APPLICABLE 6 - 22 (calc) [facility] Sodium 141 135 - 146 mmol/L [facility] Potassium 3.5 3.5 - 5.3 mmol/L [facility] Chloride 103 98 - 110 mmol/L [facility] CO2 28 20 - 32 mmol/L [facility] Calcium 8.7 8.6 - 10.2 mg/dL [facility] Protein Total 6.1 6.1 - 8.1 g/dL [facility] Albumin 4.0 3.6 - 5.1 g/dL [facility] Globulin Total 2.1 1.9 - 3.7 g/dL (calc) [facility] Albumin/Globuli n Ratio 1.9 1.0 - 2.5 (calc) [facility] Bilirubin Total 0.5 0.2 - 1.2 mg/dL [facility] Alkaline Phosphatase 67 31 - 125 U/L [facility] AST 20 10 - 35 U/L [facility] ALT 22 6 - 29 U/L [facility] Comment: Test Performed at: [facility] [id number] [place] [address] TOVA GANDHI DO,MPH Blood BLOOD SPECIMEN / Unknown 07/19/2021 2:03 PM ORTHOPAEDIC TECHNOLOGIST 07/19/2021 2:04 PM ORTHOPAEDIC TECHNOLOGIST Stella Cruz MD LAB - CHEMISTRY ORDERABLES Mary l Result Performing Organization Address City/State/[facility] Co de Phone Number [address] [phone] [place] [address] * HEPATITIS SCREEN ACUTE (07/19/2021 2:03 PM ORTHOPAEDIC TECHNOLOGIST) Hepatitis A Virus Antibody IgM NON-REACTI VE NON-REACT [facility] Comment: For additional information, please refer to http://[employer]/faq/HLC010 (This link is being provided for informational/ educational purposes only.) Hepatitis B Virus Surface Antigen NON-REACTI VE NON-REACT [facility] Hepatitis B Core Virus Antibody IgM NON-REACTI VE NON-REACT [facility] Hepatitis C Antibody NON-REACTI VE NON-REACT [facility] Signal to Cut-Off 0.00 <1.00 [facility] Comment: HCV antibody was non-reactive. There is no laboratory evidence of HCV infection. In most cases, no further action is required. However, if recent HCV exposure is suspected, a test for HCV RNA (test code 62803) is suggested. For additional information please refer to http://[employer]/faq/LLP65l3 (This link is being provided for informational/ educational purposes only.) Test Performed at: [facility] [id number] [place] [address] TOVA GANDHI DO,MPH Blood BLOOD SPECIMEN / Unknown 07/19/2021 2:03 PM ORTHOPAEDIC TECHNOLOGIST 07/19/2021 2:04 PM ORTHOPAEDIC TECHNOLOGIST us Stella Cruz MD LAB - CHEMISTRY ORDERABLES Mary espinoza Result [facility] [id number] [place] [address] from Last 3 Months or Most Recently Relevant to Health Maintenance Insurance [facility] Care Teams Industrial Equipment Wirer Relationship Specialty Start Date End Date Dilcia Ivan MD PCP - General Family Medicine 07/12/21
--- OUTSIDE RECORDS SUMMARY | 2024-12-21 18:09 | XMS_ITS | Data Portability ---
Author Organization [facility], Main Office Address [address] [place] [address] Care Team Providers Care Wardrobe Mistress Name Role Phone ROSALINA GOFF Primary Care Provider Assessment No assessment recorded. Plan of Treatment Reminders Order Date Submit Date Provider Last Modified By Organization Details Last Modified Time Details Appointments None recorded. Lab vitamin B12 + folate, serum or blood 2022 023 [facility], [address], [address], [place], [address], 3 16:56:18 cortisol, am, serum 2022 023 [facility], [address], [address], [place], [address], 3 12:20:42 acth, plasma 2022 023 [facility], [address], [address], [place], [address], 3 16:53:54 cortisol, am, serum 2022 023 [facility], [address], [address], [place], [address], 3 12:19:05 cortisol, am, serum 2022 023 [facility], [address], [address], [place], [address], 3 12:16:12 Referral None recorded. Procedures cortrosyn stimulatio n test (PROC) 2022 023 [facility] (Admitting), [address], [place], [address], 17:45:34 Surgeries None recorded. Imaging None recorded. Medication Orders cyanocobal collado (vit B-12) 1,000 mcg/mL injection solution 2022 023 [id number], [address], [place], [id number], 16:56:06 folic acid 1 mg tablet 2022 023 [facility] #[id number], [address], [place], [phone], 16:56:06 Patient TargetsNo targets recorded. Patient InstructionsNo instructions recorded. Reason for Referral None Reported. Results Created Date Observation Date Name Description Value Unit Range Abnormal Flag Note LastModifiedBy Organization Detail LastModifiedTime 10/15/19 23 10/21/2022 TESTO STERO NE, FREE (DIAL YSIS) AND TOTAL ,MS testosterone , total, MS 24 NG/dL 2-45 For addit ional infor hossein mcneil e refer to https ://ed ucati on.qu shayeVanna's Vanity. Discomixdownload.com/f aq/FA Q165 (This link is being provi ded for infor matjj nal/e ducat ional purpo ses only. ) (Note ) This test was devel oped and its shikha tical perfo rmanc e taylor cteri stics have been deter mined by [employer]. It has not been clear ed or appro gladis by the FDA. This assay has been valid ated pursu ant to the CLIA regul ation s and is used for clini wolfgang purpo ses. Not Available [facility] [employer] [facility] [address], [place], [address], 10/21/2022 17:19:27 10/15/19 23 10/21/2022 TESTO STERO NE, FREE (DIAL YSIS) AND TOTAL ,MS testosterone , free 1.5 pg/mL 0.1-6. 4 (Note ) This test was devel silverio and its shikha tical perfo rmanc e taylor cteri stics have been deter mined by [employer]. It has not been clear ed or appro gladis by the FDA. This assay has been valid ated pursu ant to the CLIA regul ation s and is used for clini wolfgang purpo ses. MDF med fusio n [address] [facility] [address] [place] [address] [phone] Renard roberts MD Not Available [address] [address] [place], [address], 10/21/2022 17:19:10/15/1910/21/2022 TSH W/REF ENRIQUE TO FT4 TSH w/reflex to FT4 1.99 mIU/L normal Refer ence Range > or = 20 Years 0.40- 4.50 Pregn elmer Range s First trime ster 0.26- 2.66 Secon d trime ster 0.55- 2.73 Third trime ster 0.43- 2.91 Not Available [address] [place], [address], 10/21/2022 17:19:27 10/15/1910/21/2022 T3, FREE T3, free 2.8 pg/mL 2.3-4. 2 normal Not Available [facility] [address] [address] [place], [address], 10/21/2022 17:19:10/15/19 23 10/21/2022 VITAM IN B12/F OLATE , SERUM PANEL vitamin B12 463 pg/mL 200-11 00 normal Not Available [facility] [address] [address] [place], [address], 10/21/2022 17:19:26 10/15/19 23 10/21/2022 VITAM IN B12/F OLATE , SERUM PANEL folate, serum 4.4 NG/mL low Refer ence Range Low: <3.4 Borde rline : 3.4-5 .4 Luba l: >5.4 Not Available [address] [place], [address], 10/21/2022 17:19:26 10/15/19 23 10/21/2022 CORTI MARISOL, A.M. cortisol, A.M. 19.4 mcg/d L normal Refer ence Range 8 a.m. (7-9 a.m.) Speci men: 4.0-2 2.0 Not Available [address] [place], [address], 10/21/2022 17:19:26 10/15/19 23 10/21/2022 DHEA SULFA TE DHEA sulfate 16 mcg/d L 15-205 normal DHEA- S value s fall with advan cing age. For refer ence, the refer ence inter vals for 31-40 year old patie nts are: Male: 93-41 5 mcg/d L Femal e: 19-23 7 mcg/d L Not Available [address], [address], 10/21/2022 17:19:25 10/15/19 23 10/21/2022 THYRO ID PEROX IDASE ANTIB ODIES thyroid peroxidase antibodies 2 IU/mL <9 normal Not Available [address] [place], [address], 10/21/2022 17:19:25 10/15/19 23 10/21/2022 JULIANNA SCREE N, IFA, W/REF L TITER AND PATTE RN JULIANNA screen, ifa negati ve negati ve normal JULIANNA IFA is a first line scree n for detec ting the prese nce of up to appro ximat august 150 autoa ntibo dies in vario us autoi mmune disea ses. A negat shanta JULIANNA IFA resul t sugge sts an JULIANNA-a ssoci ated autoi mmune disea se is not prese nt at this time, but is not defin itive . If there is high clini wolfgang suspi cion for Sjogr en's syndr ome, testi ng for anti- SS-A/ Ro antib celi shoul d be consi dered . Anti- Juliane-1 antib celi shoul d be consi dered for clini wen suspe cted infla mmato ry myopa aaron . AC-0: Negat shanta Inter natio nal Conse nsus on JULIANNA Patte rns (http s://d oi.or g/10. 1515/ [facility]2017- 0052) For addit ional infor hossein mcneil e refer to http: //karon Lenz stDia gnost ics.c om/fa q/FAQ 177 (This link is being provi ded for infor chaim villalobos/ educa tahir espinoza purpo ses only. ) Not Available [address] [address] [place], [address], 10/21/2022 17:19:24 10/15/19 23 10/21/2022 CBC (INCL UDES DIFF/ PLT) white blood cell count 4.6 thous and/u L 3.8-10 .8 normal Not Available [address] [address] [place], [address], 10/21/2022 17:19:24 10/15/19 23 10/21/2022 CBC (INCL UDES DIFF/ PLT) red blood cell count 4.73 robert on/uL 3.80-5 .10 normal Not Available [facility] [address], [address], 10/21/2022 17:19:24 10/15/19 23 10/21/2022 CBC (INCL UDES DIFF/ PLT) hemoglobin 13.5 g/dL 11.7-1 5.5 normal Not Available [facility] [address] [address] [place], [address], 10/21/2022 17:19:24 10/15/19 23 10/21/2022 CBC (INCL UDES DIFF/ PLT) hematocrit 41.5 % 35.0-4 5.0 normal Not Available [address], [address], 10/21/2022 17:19:24 10/15/19 23 10/21/2022 CBC (INCL UDES DIFF/ PLT) MCV 87.7 fL 80.0-1 00.0 normal Not Available [address], [address], 10/21/2022 17:19:24 10/15/19 23 10/21/2022 CBC (INCL UDES DIFF/ PLT) MCH 28.5 pg 27.0-3 3.0 normal Not Available [address], [address], 10/21/2022 17:19:24 10/15/19 23 10/21/2022 CBC (INCL UDES DIFF/ PLT) MCHC 32.5 g/dL 32.0-3 6.0 normal Not Available [address], [address], 10/21/2022 17:19:24 10/15/19 23 10/21/2022 CBC (INCL UDES DIFF/ PLT) RDW 13.0 % 11.0-1 5.0 normal Not Available [address], [address], 10/21/2022 17:19:24 10/15/19 23 10/21/2022 CBC (INCL UDES DIFF/ PLT) platelet count 260 thous and/u L 140-40 0 normal Not Available [address], [address], 10/21/2022 17:19:24 10/15/19 23 10/21/2022 CBC (INCL UDES DIFF/ PLT) MPV 10.5 fL 7.5-12 .5 normal Not Available [address], [address], 10/21/2022 17:19:24 10/15/19 23 10/21/2022 CBC (INCL UDES DIFF/ PLT) absolute neutrophils 2249 cells /uL 1500-7 800 normal Not Available [address], [address], 10/21/2022 17:19:24 10/15/19 23 10/21/2022 CBC (INCL UDES DIFF/ PLT) absolute lymphocytes 1822 cells /uL 850-39 00 normal Not Available [address], [address], 10/21/2022 17:19:24 10/15/19 23 10/21/2022 CBC (INCL UDES DIFF/ PLT) absolute monocytes 414 cells /uL 200-95 0 normal Not Available [address], [address], 10/21/2022 17:19:24 10/15/19 23 10/21/2022 CBC (INCL UDES DIFF/ PLT) absolute eosinophils 83 cells /uL 15-500 normal Not Available [address], [address], 10/21/2022 17:19:24 10/15/19 23 10/21/2022 CBC (INCL UDES DIFF/ PLT) absolute basophils 32 cells /uL 0-200 normal Not Available [address], [address], 10/21/2022 17:19:24 10/15/19 23 10/21/2022 CBC (INCL UDES DIFF/ PLT) neutrophils 48.9 % normal Not Available [address], [address], 10/21/2022 17:19:24 10/15/19 23 10/21/2022 CBC (INCL UDES DIFF/ PLT) lymphocytes 39.6 % normal Not Available [facility] [address] [address] [place], [address], 10/21/2022 17:19:24 10/15/19 23 10/21/2022 CBC (INCL UDES DIFF/ PLT) monocytes 9.0 % normal Not Available [facility] [address] [address] [place], [address], 10/21/2022 17:19:24 10/15/19 23 10/21/2022 CBC (INCL UDES DIFF/ PLT) eosinophils 1.8 % normal Not Available [facility] [address], [address], 10/21/2022 17:19:24 10/15/19 23 10/21/2022 CBC (INCL UDES DIFF/ PLT) basophils 0.7 % normal Not Available [facility] [address] [address] [place], [address], 10/21/2022 17:19:24 10/15/19 23 10/21/2022 ALDOS REBEKA E/WILLARD SMA RENIN ACTIV ITY RATIO ,LC/M S/MS aldosterone, lc/MS/MS 12 NG/dL Adult Refer ence Range s for Aldos rebeka e: Uprig ht 8:00- 10:00 am < or = 28 ng/dL Uprig ht 4:00- 6:00 pm < or = 21 ng/dL Supin e 8:00- 10:00 am 3-16 ng/dL This test was devel oped and its shikha tical perfo rmanc e taylor cteri stics have been deter mined by [facility] yoseph Carltoni dany Kelley . It has not been clear ed or appro gladis by FDA. This assay has been valid ated pursu ant to the CLIA regul ation s and is used for clini wolfgang purpo ses. Not Available [facility] [address] [address] [place], [address], 10/21/2022 17:19:23 10/15/19 23 10/21/2022 ALDOS REBEKA E/WILLARD SMA RENIN ACTIV ITY RATIO ,LC/M S/MS plasma renin activity, lc/MS/MS 0.54 NG/mL /h 0.25-5 .82 Not Available [address], [address], 10/21/2022 17:19:23 10/15/19 23 10/21/2022 ALDOS REBEKA E/WILLARD SMA RENIN ACTIV ITY RATIO ,LC/M S/MS niki/pra ratio 22.2 ratio 0.9-28 .9 Not Available [address], [address], 10/21/2022 17:19:23 10/15/19 23 10/21/2022 ACTH, PLASM A acth, plasma 120 pg/mL 6-50 high Refer ence range appli es only to speci mens colle cted betwe en 7am-1 0am. Not Available [address], [address], 10/21/2022 17:19:23 10/15/19 23 10/21/2022 COMPR EHENS SHANTA METAB OLIC PANEL urea nitrogen (BUN) 12 mg/dL 7-25 normal Not Available [address], [address], 10/21/2022 17:19:22 10/15/1910/21/2022 COMPR EHENS SHANTA METAB OLIC PANEL glucose 92 mg/dL 65-99 normal Fasti ng refer ence inter parvin Not Available [address], [address], 10/21/2022 17:19:22 10/15/19 23 10/21/2022 COMPR EHENS SHANTA METAB OLIC PANEL creatinine 0.94 mg/dL 0.50-0 .99 normal Not Available [address] [place], [address], 10/21/2022 17:19:22 10/15/19 23 10/21/2022 COMPR EHENS SHANTA METAB OLIC PANEL eGFR 75 mL/mi n/1.7 3m2 > or = 60 normal The eGFR is based on the CKD-E PI 2020 equat ion. To calcu late the new eGFR from a previ ous Creat inine or Cysta tin C resul t, go to https ://steven ba.sally iglesias.o stephanie/lashonda parekh s/ kdoqi /gfr% 5Fcal culat or Not Available [address], [address], 10/21/2022 17:19:22 10/15/19 23 10/21/2022 COMPR EHENS SHANTA METAB OLIC PANEL BUN/creatini ne ratio not applic able (calc ) 6-22 Not Available [address], [address], 10/21/2022 17:19:22 10/15/19 23 10/21/2022 COMPR EHENS SHANTA METAB OLIC PANEL sodium 142 mmol/ L 135-14 6 normal Not Available [address], [address], 10/21/2022 17:19:22 10/15/19 23 10/21/2022 COMPR EHENS SHANTA METAB OLIC PANEL potassium 4.1 mmol/ L 3.5-5. 3 normal Not Available [address], [address], 10/21/2022 17:19:22 10/15/19 23 10/21/2022 COMPR EHENS SHANTA METAB OLIC PANEL chloride 106 mmol/ L 98-110 normal Not Available [address], [address], 10/21/2022 17:19:22 10/15/19 23 10/21/2022 COMPR EHENS SHANTA METAB OLIC PANEL carbon dioxide 30 mmol/ L 20-32 normal Not Available [address], [address], 10/21/2022 17:19:22 10/15/19 23 10/21/2022 COMPR EHENS SHANTA METAB OLIC PANEL calcium 9.5 mg/dL 8.6-10 .2 normal Not Available [address], [address], 10/21/2022 17:19:22 10/15/19 23 10/21/2022 COMPR EHENS SHANTA METAB OLIC PANEL protein, total 6.0 g/dL 6.1-8. 1 low Not Available [address], [address], 10/21/2022 17:19:22 10/15/19 23 10/21/2022 COMPR EHENS SHANTA METAB OLIC PANEL albumin 4.1 g/dL 3.6-5. 1 normal Not Available [address], [address], 10/21/2022 17:19:22 10/15/19 23 10/21/2022 COMPR EHENS SHANTA METAB OLIC PANEL globulin 1.9 g/dL_ (calc ) 1.9-3. 7 normal Not Available [address], [address], 10/21/2022 17:19:22 10/15/19 23 10/21/2022 COMPR EHENS SHANTA METAB OLIC PANEL albumin/glob ulin ratio 2.2 (calc ) 1.0-2. 5 normal Not Available [address], [address], 10/21/2022 17:19:22 10/15/19 23 10/21/2022 COMPR EHENS SHANTA METAB OLIC PANEL bilirubin, total 0.4 mg/dL 0.2-1. 2 normal Not Available [address] [address] [place], [address], 10/21/2022 17:19:22 10/15/19 23 10/21/2022 COMPR EHENS SHANTA METAB OLIC PANEL alkaline phosphatase 70 U/L 31-125 normal Not Available [address], [address], 10/21/2022 17:19:22 10/15/19 23 10/21/2022 COMPR EHENS SHANTA METAB OLIC PANEL AST 10 U/L 10-35 normal Not Available [address], [address], 10/21/2022 17:19:22 10/15/19 23 10/21/2022 COMPR EHENS SHANTA METAB OLIC PANEL ALT 7 U/L 6-29 normal Not Available [address], [address], 10/21/2022 17:19:22 10/15/19 23 10/21/2022 IRON AND TOTAL IRON MICAELA NG CAPAC ITY iron, total 86 mcg/d L 40-190 normal Not Available [address], [address], 10/21/2022 17:19:22 10/15/19 23 10/21/2022 IRON AND TOTAL IRON MICAELA NG CAPAC ITY iron binding capacity 307 mcg/d L_(ca lc) 250-45 0 normal Not Available [address], [address], 10/21/2022 17:19:22 10/15/19 23 10/21/2022 IRON AND TOTAL IRON MICAELA NG CAPAC ITY % saturation 28 %_(ca lc) 16-45 normal Not Available [address] [place], [address], 10/21/2022 17:19:22 01/0508/29/2022 US, thyro id No observ ation record ed. [id number] [facility] [address] [place], [address], 10/24/2022 10:52:39 Result Notes None recorded. 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 2021 Not Available [facility] 3 10:46:49 Depressiv e disorder 38056316 Active 2021 Not Available [facility] 3 10:46:49 Arthritis 1530252 Active 2021 Not Available [facility] 3 10:46:50 Anxiety 39849182 Active 2021 Not Available [facility] 3 10:46:50 COVID-19 649501906 Completed 202107/31/2022 Not Available [facility] 3 10:46:50 Abnormal cortisol 945012634 Active 2022 Samantha Mcbride MD [address], [address] , [facility] 3 16:51:32 Vitamin B12 deficienc y (non anemic) 65870095 Active 2022 Samantha Mcbride MD [address], [address] , [facility] 3 16:53:32 Chronic fatigue syndrome 59781697 Active 2022 Samantha Mcbride MD [address] [place], [address] , [facility] 22:33:55 Notes:Reflex Sympathetic Dys trophy Problem Notes None recorded. Procedures Surgical History Date Name Laterality Status Provider Name and Address Organization Details Recorded Time Ablation completed Not Available [facility] 10:42:54 fallopian tube excision completed Not Available [facility] 10/24/2022 10:42:54 Lumpectomy completed Not Available [facility] 10/24/2022 10:42:54 Gastric Bypass completed Not Available [facility] 10/24/2022 10:42:54 Imaging Results Imaging Date Name Status LastModified by Organiz ation Details LastModified Time 08/29/2022 US, thyroid completed [id number] [facility] [address] [place], [address], 10/24/2022 10:52:39 Procedure Notes None recorded. Medical Equipment None Reported. Medications Name Sig Start Date Stop Date Status Note LastModified by Organization Details LastModified Time c-mme-1 (adult) caps TAKE ONE CAPSULE BY MOUTH DAILY OR DIRECTED 03/04 completed Not Available Not Available Not Available c-am compound (caps) TAKE 3 CAPSULES BY MOUTH DAILY IN THE MORNING WITH BREAKFAST . 03/04 completed Not Available Not Available Not Available c-pm compound ( caps) TAKE 6 CAPSULES BY MOUTH DAILY IN THE EVENING WITH DINNER. 03/04 completed Not Available Not Available Not Available tizanidine 2 mg tablet 03/04 completed Not Available Not Available Not Available trazodone 50 mg tablet TAKE 1 TO 3 TABLETS BY MOUTH AT BEDTIME active Not Available Not Available No t Available ondansetron HCl 4 mg tablet TAKE 1 TABLET BY MOUTH EVERY 8 HOURS NEEDED FOR NAUSEA AND VOMITING active Not Available Not Available No t Available prednisone 20 mg tablet TAKE 2 TABLETS BY MOUTH EVERY DAY FOR 5 DAYS 03/04 completed Not Available Not Available Not Available clonazepam 1 mg tablet TAKE 1 TABLET BY MOUTH THREE TIMES DAILY NEEDED active Not Available Not Available No t Available nystatin 500,000 unit tablet TAKE 2 TABLETS BY MOUTH TWICE DAILY 03/04 completed Not Available Not Available Not Available hydrocodone 10 mg-acetamin ophen 325 mg tablet TAKE 1/2 TO 1 TABLET BY MOUTH EVERY 8 HOURS NEEDED FOR PAIN active Not Available Not Available No t Available alprazolam 0.5 mg tablet TAKE 1 TABLET BY MOUTH 2 TIMES PER DAY NEEDED 03/04 completed Not Available Not Available Not Available dexamethaso ne 1 mg tablet TAKE 1 TABLET AT 10PM THE NIGHT BEFORE 8AM CORTISOL. 03/04 completed Not Available Not Available Not Available pantoprazol e 40 mg tablet,quincy yed release TAKE 1 TABLET BY MOUTH TWICE DAILY BEFORE MEALS active Not Available Not Available No t Available cyanocobala min (vit B-12) 1,000 mcg/mL injection solution ADMINISTE R 1 ML UNDER THE SKIN EVERY WEEK IN THE MORNING active Not Available Not Available No t Available buspirone 7.5 mg tablet TAKE 1 TABLET BY MOUTH TWICE DAILY active Not Available Not Available No t Available folic acid 1 mg tablet Take 1 tablet(s) every day by oral route in the morning for 90 days. 2022 active Not Available Not Available Not Avai lable montelukast 10 mg tablet TAKE 1 TABLET BY MOUTH EVERY DAY IN THE EVENING active Not Available Not Available No t Available albuterol sulfate HFA 90 mcg/actuati on aerosol inhaler TAKE 2 PUFFS BY MOUTH 4 TIMES A DAY active Not Available Not Available No t Available escitalopra m 20 mg tablet TAKE 2 TABLETS BY MOUTH DAILY active Not Available Not Available No t Available aripiprazol e 10 mg tablet active Not Available Not Available Not Available aripiprazol e 5 mg tablet 03/04 completed Not Available Not Available Not Available solifenacin 10 mg tablet 03/04 completed Not Available Not Available Not Available aripiprazol e 2 mg tablet 03/04 completed Not Available Not Available Not Available Vyvanse 70 mg capsule TAKE ONE CAPSULE BY MOUTH EVERY MORNING active Not Available Not Available No t Available Vyvanse 60 mg capsule TAKE 1 CAPSULE BY MOUTH EVERY MORNING 10/25 completed Not Available Not Available Not Available Dulera 200 mcg-5 mcg/actuati on HFA aerosol inhaler INHALE 2 PUFFS BY MOUTH TWICE DAILY active Not Available Not Available No t Available TRUEplus Insulin 1 mL 31 gauge x 5/16 syringe USE TO INJECT VITAMIN B12 SUBCUTANE OUSLY WEEKLY FOR 90 DAYS active Not Available Not Available No t Available Rexulti 3 mg tablet TAKE 1 TABLET BY MOUTH EVERY DAY 03/04 completed Not Available Not Available Not Available Rexulti 1 mg tablet 03/04 completed Not Available Not Available Not Available Rexulti 2 mg tablet 03/04 completed Not Available Not Available Not Available Vitals Date Recorded Body mass index (BMI) Body height Oxygen saturation Oxygen saturation in Arterial blood by Pulse oximetry Heart rate Body temperature Body weight Provider Name and Address Organization Details Last Updated DateTime 2 42.2 kg/m2 175.26 cm 99 % 99 % 121 /min 97.8 [degF] 049494. 42 g Not Available [facility] 3 10:45:38 Date Recorded Body mass index (BMI) Body height Oxygen saturation Oxygen saturation in Arterial blood by Pulse oximetry Heart rate Body temperature Body weight Provider Name and Address Organization Details Last Updated DateTime 2 41.6 kg/m2 175.26 cm 99 % 99 % 121 /min 97.6 [degF] 543965. 05 g Not Available [facility] 3 10:45:38 Date Recorded Body height Body mass index (BMI) Body weight Body temperature Heart rate Respiratory rate Systolic blood pressure Diastolic blood pressure Provider Name and Address Organization Details Last Updated DateTime 3 175.26 cm 40.5 kg/m2 035944. 31 g 97.6 [degF] 96 /min 17 /min 100 mm[Hg] 68 mm[Hg] Nydia Snider CMA [facility] 3 16:37:58 Date Recorded Body height Body mass index (BMI) Body weight Body temperature Heart rate Systolic blood pressure Diastolic blood pressure Provider Name and Address Organization Details Last Updated DateTime 3 175.26 cm 44.6 kg/m2 896629. 9 g 97.6 [degF] 95 /min 120 mm[Hg] 65 mm[Hg] REBEKA Husain [facility] 3 15:27:00 Social History Question Answer Notes LastModified by Organizat ion Details LastModified Time Tobacco Smoking Status Former Smoker Christina jiang, [facility] 03/04/2023 15:08:15 What Is Your Level Of Alcohol Consumption? Occasional [id number] Information not available 10/24/2022 What Is Your Level Of Caffeine Consumption? Moderate [id number] Information not available 10/24/2022 What Type Of Diet Are You Following? REGULAR [id number] Information not available 10/24/2022 When Did You Quit Smoking? 16+yearssincel christine Information not available 03/04/2023 What Is Your Relationship Status? [id number] Information not available 10/24/2022 Do You Use Any Illicit Or Recreational Drugs? Yes Marcecilejuana Information not available 03/04/2023 Do You Have Any Dietary Restrictions? No Information not available 03/04/2023 Sex: Unknown Functional Status Question Answer Note LastModified by Organizat ion Details LastModified Time What is your exercise level? None [id number] Information not available 10/24/2022 Mental Status None recorded. Family History Relationship Description Onset Age of this Age Resolved Age Notes LastModified by Organization Details LastModified Time Maternal Grandmother Myocardial infarction [id number] Not available 10/24/2022 10:42:59 Father Aneurysm akovach Not available 10/25/2022 16:27:51 Father Malignant neoplasm of urinary bladder akovach Not available 2022 16:27:51 Unspecified Relation Family history of neoplasm of lung akovach Not available 2022 16:27:51 Unspecified Relation Family history of neoplasm of lung akovach Not available 2022 16:27:51 Maternal Aunt Malignant tumor of breast akovach Not available 2022 16:27:51 Maternal Aunt Malignant tumor of breast akovach Not available 2022 16:27:51 Notes:Cardiac bypass Materna l Grandmother Medical History Condition Response ARTHRITIS Y HEADACHES/MIGRAINES GI PROBLEMS Y SKIN PROBLEMS LUNG DISEASE/DISORDER Y INSOMNIA Y HYPERTENSION EYE PROBLEMS Y GERD/NAUSEA Y SHINGLES Y DEPRESSION (INCLUDING POST ) Y Gynecological HistoryNo gynecological history recorded. Obstetrics History GPAL:G 0 P 0 0 0 0 Past Encounters Encounter ID Performer Location Encounter Start Date Encounter Closed Date Diagnosis/Indication Diagnosis SNOMED-CT Code Diagnosis ICD10 Code Diagnosis Note [id number] [facility] [place] [address] [place] [address] 06/29/2022 00:00:00 06/29/2022 20:41:30 [id number] [facility] [place] [address] [place] [address] 07/31/2022 00:00:00 07/31/2022 17:01:49 [id number] Samantha Mcbride MD [facility] [place] [address] [place] [address] 1 10/25/2022 16:18:11 10/25/2022 17:14:21 Abnormal cortisol [id number] R94.7 ACTH elevated at 120 ng/dL- has low blood pressure, fatigue, dizziness, weight loss- concerning for addisons disease- will send for cortrosyn stimulatio n testing at [facility]- order has been placed and patient is aware of the potential diagnosis- we have discussed the risks and benefits of therapy and she is aware we would use hydrocorti sone physiologi c dosing along with florinef. Vitamin B1 2 deficiency (non anemic) [id number] E53.8 Trial on B12 injections at 1000 mcg SQ once weekly. Will start on folic acid 1 mg daily as she has low absorption . Spent up to 26 minutes preparing to see the patient (eg, review of tests), obtaining and/or reviewing separately obtained history, performing a medically appropriat e examinatio n and evaluation , counseling and educating the patient, ordering medication s, tests, along with documentin g clinical informatio n in the electronic health record, independen tly interpreti ng results and communicat ing results to the patient. RTC in 3-4 months. Patient was provided a handwritte n lab order which contains our fax number. If she chooses to go outside of the [facility] system to obtain labwork she was advised to provide our fax number and my informatio n to the lab she will be obtaining labwork from in order to have her labs properly forwarded over for me to review so there is no loss of follow up due to use of outside network. She was also advised to contact our clinic informing us that she has completed her labwork so we are aware we will need to reach out to the appropriat e laboratory to request her results be forwarded to us so I might have the ability to review and make further medical decision making in her case. She voiced understand ing. [id number] Samantha Mcbride MD [facility] [address] [place] [id number] 03/04/2023 15:07:22 03/18/2023 14:02:13 Chronic fatigue syndrome [id number] R53.82 Patient had a normal cortrosyn stimulatio n test but borderline overall- she is on THC and opioids for chronic pain management . These are known to suppress the adrenalcor tical axis. Recommende d patient repeat another test in 6-12 months to assess stability of her testing and assure there are no changes in her overall endogenous function. Goal would be for patient to come off THC and opioids for 2 months and repeat testing to reassess unaffected endogenous function. She voiced understand ing and will re-establi sh with endocrinol lindy per recommenda tion. She will be following with neurosurge ry this week for evaluation of concern of potential growth of meningioma . Spent up to 20 minutes preparing to see the patient (eg, review of tests), obtaining and/or reviewing separately obtained history, performing a medically appropriat e examinatio n and evaluation , counseling and educating the patient, ordering medication s, tests, along with documentin g clinical informatio n in the electronic health record, independen tly interpreti ng results and communicat ing results to the patient. RTC as needed. Health Concerns Section Related Observation LastModified by Organization Detai ls LastModified Time None Recorded Concern Status LastModified by Organization Details LastModified Time None Recorded Advance Directives Directive None Recorded Payers Encounter Date Sequence Insurance Name Policy Number Policy Gallegos Covered Member ID Gallegos Member ID Guarantor Name 10/25/2022 1 [place] [id number] Gianni Rios [id number] Loly Rios 03/04/2023 1 [place] [id number] Gianni Rios [id number] Loly Rios Notes Date Note Type Note Provider Name and Address Organization Details Recorded Time 10/25/2022 text/html 47 yo female com es in for follow up in management of fatigue found to have high ACTH in setting of fatigue, low blood pressure and weight loss concerning for addisons disease along with low B12/folate. send for cortrosyn stim test if hypotensive- was 100/68 mmHg in clinic today. She has no appetite and only craves salt and chocolate. She doesn't want anything unless it is high in sodium-the more sodium the better. She has lost 15 pounds and last year she was over 300 pounds- she has lost over 30-40 pounds. She feels the more stress she is under it is worse. She has been smoking cannabanis. labs from 10/18:TSH of 1.99 uIU/mlFT3 of 2.8 pg/mLtestosterone 24 ng/dLiron sat 28 %glucose 92 mg/dlCr normalLFT normallow protein 6ACTH high at 120 pg/mlaldo 12 ng/mLPAR 22.2 highH/H normalTPO 2 IU/mldheas 16 ug/mgcortisol 19.4 ug/dLB12 463 pg/ML with low folate 4.4 ng/mL Samantha Mcbride MD [address], [place], [address], [employer] 10/25/2022 17:27:50 03/04/2023 text/html 48 yo female com es in for follow up in management of chronic fatigue found to have mildly suboptimal cortrosyn stimulation due to chronic ophiods and THC use. had cortrosyn stimulation test in October which was overall normal 10 stimulated up to 19 ug/dL. She does use THC and chronic pain medications which are known to suppress the adrenalcortical axis. we requested DST but patient hasn't completed this as of yet due to not being able to come off THC or opiods at this time. we provided B12 injections she is following neurology closely for concern of meningioma and recently referred to neurosurgery at December visit. She will be seeing a neurosurgeon on the at [facility] for evaluation. Samantha Mcbride MD [address], [place], [address], [employer] 03/04/2023 22:37:15 OBGyn Episode No OBEpisode recorded.
--- OUTSIDE RECORDS SUMMARY | 2024-12-21 18:09 | XMS_ITS | Clinical Summary ---
Author Organization [facility] Address [address] [place] [address] Care Team Providers Care Sales Assistant Name Role Phone Dilcia Ivan MD Primary Care Provi beronica Allergies Active Allergy Reactions Criticality Noted Date [...] to Assessment & Plan (07/31/2024 5:03 PM GORING CUTTER): Reviewed working on a heart healthy diet [...] 09/25/2022 Assessment & Plan (09/25/2022 11:14 AM GORING CUTTER): Chronic nausea and vomiting. Labs including LFTs [...] 09/25/2022 Assessment & Plan (09/25/2022 11:14 AM GORING CUTTER): Last colonoscopy August [address] Yovani Reaves with 2 tubular adenomas and 3 hyperplastic polyps. -repeat colonoscopy August 2026 Gastroesophageal reflux disease without esophagi tis 09/25/2022 Assessment & Plan (09/25/2022 11:15 AM GORING CUTTER): Chronic GERD, taking pantoprazole b.i.d.. -continue PPI [...] 07/04/2022 Assessment & Plan (07/04/2022 2:07 PM GORING CUTTER): Ordered 24 hour Holter monitor today. Referral for Cardiology placed. She will follow up as needed after she sees Cardiology. Lung nodule 07/04/2022 Assessment & Plan (07/04/2022 2:08 PM GORING CUTTER): Discussed with patient that the radiologist recommended [address] follow-up if she had risk factors for lung cancer. She reports her grandfather of lung cancer. She does not personally have smoking, secondhand smoke asbestos or Radon exposure. She would like to have a repeat scan in 1 year. Dizziness 07/04/2022 Assessment & Plan (07/04/2022 2:07 PM GORING CUTTER): Patient instructed to change positions slowly in [...] 10/18/2021 Assessment & Plan (10/18/2021 2:53 PM GORING CUTTER): Due to the snoring and hypersomnia, I [...] 06/14/2021 Assessment & Plan (07/31/2024 3:11 PM GORING CUTTER): Chronic, slight progression Continue zepbound BMI Follow-up includes: nutrition counseling. Assessment & Plan (04/09/2024 12:11 PM CDT): Chronic, worse BMI Follow-up includes: Continue working on healthy lifestyle changes. Labs ordered for further guidance . Assessment & Plan (07/26/2023 4:24 PM GORING CUTTER): Chronic, slightly worse Appetite currently diminished with [...] 3:02 PM CDT): Continue to follow with alelrgy ADD (attention deficit disorder) 05/12/2017 Assessment & [...] concerns Assessment & Plan (09/25/2022 11:14 AM GORING CUTTER): History of gastric bypass in 1996. Diagnosed with gastric fistula in [id number] on EGD. Referred to bariatric surgery who recommended medical management. -obtain prior GI records Complex regional pain syndrome i of right upper limb 01/15/2017 Assessment & Plan (07/13/2021 3:01 PM GORING CUTTER): With acute flare of her pain Continue [...] current regimen Continue to follow with her universal banker Chronic pain 04/06/2016 Assessment & Plan (06/14/2021 2:57 PM CDT): Stable, though does need norco rarely She has been working on healthy changes to support her symptoms Continue supportive care Consider referral to pain management Call for questions or concerns Arthritis 04/06/2016 Reflex sympathetic dystrophy 04/06/2016 Assessment & Plan (07/13/2021 3:02 PM GORING CUTTER): With an acute flare Continue hydrocodone as [...] at 20 mg - continue Mucinex and qlfm-xyo-egvbdyz Robitussin - if cough is still bothersome at night, please contact us and may consider cough syrup with codeine Functional dyspepsia 10/04/2022 024 Depressive disorder 07/31/2022 07/31/20 24 Anxiety 07/31/2022 07/31/2024 Meningioma 12/05/2021 07/31/2024 Mild persistent asthma, well controlled 09/17/2016 06/14/2021 Pain in extremity 04/16/2013 07/31/2024 Encounters Date Type Department Care Team Description 12/16/2024 Letter (Out) [facility] Medicine [address] [address] 12/07/2024 5:33 PM CDT - 12/07/2024 11:59 PM CDT Hospital Encounter [facility] - Imaging [address] [place] [address] Disorder of adrenal gland, unspecified Discharge Disposition: Discharge to home or self care 10/14/2024 6:05 PM GORING CUTTER E-Visit [facility] Virtual Care [address] [place] [address] Mary Anne Zheng NP Your Medications 10/14/2024 Patient Self-Triage [facility] [address] [place] [address] Mychart, Generic Provider 10/09/2024 Nurse Triage [facility] Medicine [address] [address] Dilcia Ivan MD 10/09/2024 Telephone [facility] [address] [place] [phone] Dilcia Ivan MD 10/09/2024 Patient Self-Triage [facility] [address] [place] [address] Mychart, Generic Provider from Last 3 Months Immunizations Immunization Administration Dates Next Due Hib (PRP-D) 01/21/2015 Hib (PRP-OMP) 01/21/2015 Influenza, Quadrivalent, Rec ombinant, Egg Free, Preservative Free, Intramuscular 07/02/2018 Influenza, Trivalent, IM (MDV) 06/08/2016 Influenza, Unspecified 07/31/2024(Deferr ed: Patient Refused),05/26/2023(Deferred: Patient Refused),05/26/2023(Deferred: Patient decision),08/13/2022(Deferred: Patient Refused),07/04/2022(Deferred: Patient Refused),05/26/2022(Deferred: Patient Refused),08/15/2021(Deferred: Patient Refused),08/13/2021(Deferred: Patient Refused),05/27/2021(Deferred: Patient Refused),05/26/2021(Deferred: Patient Refused),05/26/2020(Deferred: Patient Refused),05/26/2020(Deferred: Patient Refused) Pneumococcal Polysaccharide PPV23 05/30/2018, Tdap 05/30/2018,01/21/2015 Surgical History Surgery Date Site/Laterality Comments VA EXC CYST/ABERRANT BREAST TISSUE OPEN 1/> LESION Breast Surgery Lumpectomy - (Added by TW Conv) MANDIBLE SURGERY Jaw Surgery - (Added by TW Conv) BREAST LUMPECTOMY 08/26/1997 - 08/25/1998 Right TEMPOROMANDIBULAR JOINT SURGERY 08/26/1992 - 08/25/1993 DILATION AND CURETTAGE OF UTERUS BREAST BIOPSY 08/26/2016 - 08/25/2017 Right GASTRIC BYPASS 08/26/1996 - 08/25/1997 SALPINGECTOMY Bilateral OOPHORECTOMY Left BARIATRIC SURGERY 06/1997 Medical History Medical History Date Comments RSD (reflex sympathetic dystrophy) Asthma Vocal cord dysfunction Arthritis Gastric fistula Meningioma (HCC) Fibromyalgia Thoracic outlet syndrome Anxiety Depression Covid-19 Tachycardia Fuchs endothelial corneal dystrophy type 1 Gastric reflux Osteopenia Osteoarthritis GERD (gastroesophageal reflux disease) Migraines Lymphedema Family History Medical History Relation Name Comments Arthritis Brother Alexandre Gout Brother Alexandre Arthritis Daughter Timothy Aneurysm Father Osmel Aneurysm - (Add ed by TW Conv) Arthritis Father Osmel Bladder Cancer Father Osmel Cancer Father Osmel Heart disease Father Osmel Hypertension Father Osmel Family history of hypertension - (Added by TW Conv) Memory loss Father Osmel Vision loss Father Osmel Heart attack Maternal Grandfather Lux Heart disease Maternal Grandfather Lux Diabetes Maternal Grandmother Karli Obesity Maternal Grandmother Karli Arthritis Mother Nicole Cancer Mother Nicole Coronary artery disease Mother Nicole Heart disease Mother Nicole Hypertension Mother Nicole Family history of hypertension - (Added by TW Conv) Lung cancer Mother Nicole Obesity Mother Nicole Valvular heart disease Mother [place]el Breast cancer Mother's Sister Cancer Mother's Sister Cancer Paternal Grandfather Ovarian cancer Neg Hx Uterine cancer Neg Hx Relation Name Status Comments Brother Alexandre Alive Daughter Timothy Father Osmel Alive Maternal Grandfather Lux Maternal Grandmother Karli Mother Nicole Alive Mother's Sister Paternal Grandfather Lung Ca ncer Paternal Grandmother Social History Tobacco Use Types Packs/Day Years Used Date Smoking Tobacco: Former Cigarettes Q uit: 1991 Smokeless Tobacco: Never Tobacco Cessation:Counseling Given: Not [...] on file Legal Sex Female 1:54 AM GORING CUTTER Gender Identity Female 10/25/2021 3:40 PM GORING CUTTER Sexual Orientation Straight 10/25/2021 3: 40 PM GORING CUTTER Obstetrics History Para Term AB IAB SAB Ectopic Multiple Livin g Live Births 3 3 3 3 3 Date Outcome GA Total Labor Labor/2nd/3rd Weight Sex Type Anes PTL Riddhi A1 A5 Name Clin Term Living Term Living Term Living Last Filed Vital Signs Vital Sign Reading Time Taken Comments Blood Pressure 126/84 07/31/2024 2:47 PM GORING CUTTER Pulse 80 07/31/2024 2:47 PM GORING CUTTER Temperature 36 C (96.8 F) 07/31/2024 2:47 PM GORING CUTTER Respiratory Rate 12 07/31/2024 2:47 PM GORING CUTTER Oxygen Saturation 96% 07/31/2024 2:47 PM GORING CUTTER Inhaled Oxygen Concentration - - Weight 147.2 kg (324 lb 9.6 oz) 07/31/2024 2:47 PM GORING CUTTER Height 174 cm (5' 8.5 ) 07/31/2024 2:47 PM GORING CUTTER Body Mass Index 48.64 07/31/2024 2:47 PM GORING CUTTER Plan of Treatment Health Maintenance Due Date Last Done Comments Hepatitis B Screening 01/14/1992 Pneumococcal vaccine <65 (2 of 2 - PCV) 05/30/2019 05/30/2018, 01/21/2015 Breast Cancer Screening-Mammogram 08/21/2023 08/21/2022, 08/17/2020, 08/16/2020, Additional history exists Zoster Vaccine (1 of 2) 01/14/2024 Influenza Vaccine (Season Ended) 2025 07/02/20 18, 06/08/2016 Depression Screening 07/31/2025 07/31/2024, 07/31/2024, 04/09/2024, Additional history exists Regular Well Visit/Exam 18-64 07/31/2025 07/31/2024, 10/04/2022 Cervical Cancer Screening 08/17/2025 08/17/2020 Colon Cancer Screening-Colonoscopy 09/12/20262021 DTaP/Tdap/Td Vaccine (3 - Td or Tdap) 05/30/2028 05/30/2018, 01/21/2015 Hepatitis C Screening Completed 09/02/2024 Procedures Procedure Name Priority Date/Time Associated Diagnosis Comments CT ABDOMEN WO CONTRAST Schedule Routine, Read Routine (OP Routine) 12/07/2024 5:51 PM CDT Disorder of adrenal gland, unspecified HEPATITIS C ANTIBODY Routine 09/02/2024 9:37 AM GORING CUTTER Need for hepatitis C screening test SCREENING MAMMOGRAM BILATERAL W LAW Schedule Routine, Read Routine (OP Routine) 08/21/2022 3:24 PM GORING CUTTER Screening mammogram, encounter for COLONOSCOPY Routine 09/12/2021 [...] above. Electronically signed by: Franklin Murrieta M.D. us Samantha Mcbride MD IMG CT PROCEDURES Final R esult * Hepatitis C antibody Blood (09/02/2024 9:37 AM GORING CUTTER) Hep C Ab Nonreactive Nonreactive Comment: Antibodies [...] revised on 2019. Blood 09/02/2024 9:37 AM GORING CUTTER 09/02/2024 1:07 PM GORING CUTTER Dilcia Ivan MD LAB MICROBIOLOGY - GENERAL ORDERABLES Final Result [facility] [address] [facility] Department of Laboratories [place], [place] [id number] * Screening Mammogram Bilateral W Law (08/21/2022 3:24 PM GORING CUTTER) Anatomical Region Laterality Modality Breast Bilateral Mammography Impressions 08/24/2022 1:45 PM GORING CUTTER BI-RADS ATLAS category (overall): 1 - Negative There is no mammographic evidence of malignancy. A 1 year screening mammogram is recommended. The patient has been or will be contacted. We recommend annual screening mammography for women at average risk of breast cancer beginning at age 40, based on guidelines of the [employer] (ACR Practice Parameter for the Performance of Screening and Diagnostic Mammography) and [employer]. For women with and elevated risk of breast cancer, please refer to the ACR Practice Parameter for specific screening recommendations. The patient will be entered into a reminder system with a target due date of 1 year for her next screening exam. Narrative 08/24/2022 1:45 PM GORING CUTTER Screening Mammogram Bilateral W Law: 08/21/22 The [...] suspicious finding in either breast on mammogram. us Self Screening Mammogram IMG MAMMO PROCEDURES Fi nal Result * (ABNORMAL) Colonoscopy (09/12/2021) Anatomical Region Laterality Modality Other Historical Provider ENDOSCOPY PROCEDURES Edit ed Result - Final * HM PAP SMEAR WITH HPV (08/17/2020) Historical Provider HEALTH MAINTENANCE Final Result from Last 3 Months or Most Recently Relevant to Health Maintenance Insurance [facility] [employer] [place] [employer] [place] Care Teams Sales Assistant Relationship Specialty Start Date End Date Dilcia Ivan MD [address] [place] [address] PCP - General Family Medicine 06/14/21
--- OUTSIDE RECORDS SUMMARY | 2024-12-21 18:09 | XMS_ITS ---
Author Organization [facility] Address [address] [address] Care Team Providers Care Pyrotechnic Mixer Name Role Phone Samantha Mcbride Primary Care Provider BROOKE Martin Unavailable [phone] REASON FOR VISIT Refill Medications Medication SIG (Take, Route, Fr equency, Duration) Notes Start Date End Date Status Ranolazine ER 500 MG 1 tablet Orally Twi ce a day for 90 days Active Encounters Encounter Location Date Provider Diagnosis [facility] [address] [phone] 12/04/2024 BROOKE MOSS Chest pain, unspecified R07.9 Assessments Encounter Date Diagnosis (ICD Code) Assessment Notes Treatment Notes Treatment Clinical Notes Section Notes 12/04/2024 Chest pain, unspecified (ICD-10 - R07.9) Plan Of Treatment Medication Medication Name Sig Start Date Stop Date Notes Ranolazine ER 500 MG 1 tablet Orally Twi ce a day for 90 days Progress Notes * Loly PETERSON WDOB: [birth year] (49 yo F)Acc No.[id number]:12/04/2024 Patient: Loly TANG :1975 A ge:49 Y S ex:Female Address:[address] [place] [id number] * Refills Continue Ranolazine ER Tablet Extended Release 12 Hour, 500 MG, Orally, 180 Tablet, 1 tablet, Twice a day, 90 days, Refills=2 * true * Date: Generated for Printi ng/Faxing/eTransmitting on: 0 12/21/2024 06:08 PM CDT
--- OUTSIDE RECORDS SUMMARY | 2024-12-21 18:10 | XMS_ITS | Patient Health Record ---
Author Organization [employer] [facility] Address [address] [address] Care Team Providers Care Remnant Sorter Name Role Phone Cedrick Mcbriden Primary Care Provider Sue Leroy Unavailable [phone] Migration, Provider Unavailable Unavailable Allergies Allergen (clinical drug ingredient) Drug/Non Drug Allergy documented on EMR Reaction Allergy Type Onset Date Status gabapentin Gabapentin Unknown Drug Allergy Activ e erythromycin Erythromycin Unknown Drug Allergy A ctive amitriptyline Amitriptyline HCl Unknown Drug Allergy Active acetaminophen Acetaminophen Unknown Drug Allergy Active oxycodone oxyCODONE Unknown Drug Allergy Active minocycline Minocycline Unknown Drug Allergy Act mohamud topiramate Topiramate Unknown Drug Allergy Activ e ramelteon Ramelteon Unknown Drug Allergy Active prochlorperazine Prochlorperazine Unknown Drug Allergy Active Results Component Value Reference Range Notes COMPREHENSIVE METABOLIC PANE L Reviewed date:07/02/2024 07:53:48 PM Interpretation: Performing Lab:[facility], [address] [place], [address] Symone Barnes MD Notes/Report: FASTING:YES FASTING: YES VITAMIN D, 25-HYDROXY, LC/MS /MS Reviewed date:07/02/2024 07:57:41 PM Interpretation: Performing Lab:[facility], [address] [place], [address] Symone Barnes MD Notes/Report: FASTING:YES FASTING: YES ACTH, PLASMA Reviewed date:07/09/2024 08:14:34 PM Interpretation: Performing Lab:[facility], [address], [place], [address] Abdelrahman Elaine M.D.,PhD Notes/Report: FASTING:YES FASTING: YES JULIANNA IFA SCREEN W/REFL TO TIT ER AND PATTERN, IFA Reviewed date:07/02/2024 08:01:35 PM Interpretation: Performing Lab:[facility], [address], [place], [address] Symone Barnes MD Notes/Report: FASTING:YES FASTING: YES T3, FREE Reviewed date:07/02/2024 08:05:15 PM Interpretation: Performing Lab:[facility], [address], [place], [place], [address] Symone Barnes MD Notes/Report: FASTING:YES FASTING: YES DHEA SULFATE Reviewed date:07/02/2024 07:52:51 PM Interpretation: Performing Lab:[facility], [address], [place], [address] Symone Barnes MD Notes/Report: FASTING:YES FASTING: YES RHEUMATOID FACTOR Reviewed date:07/02/2024 07:52:44 PM Interpretation: Performing Lab:[facility], [address], [place], [address] Symone Barnes MD Notes/Report: FASTING:YES FASTING: YES CBC (INCLUDES DIFF/PLT) Reviewed date:07/02/2024 08:04:25 PM Interpretation: Performing Lab:[facility], [address], [place], [address] Symone Barnes MD Notes/Report: FASTING:YES FASTING: YES VITAMIN B12/FOLATE, SERUM PA XIN Reviewed date:07/02/2024 08:05:57 PM Interpretation: Performing Lab:[facility], [address], [place], [address] Symone Barnes MD Notes/Report: FASTING:YES FASTING: YES IRON AND TOTAL IRON BINDING CAPACITY Reviewed date:07/02/2024 07:53:01 PM Interpretation: Performing Lab:[facility], [address], [place], [place], [address] JaniceDarcy Barnes MD Notes/Report: FASTING:YES FASTING: YES T4, FREE Reviewed date:07/02/2024 08:04:10 PM Interpretation: Performing Lab:[place], [facility], [address], [place], [address] Symone Barnes MD Notes/Report: FASTING:YES FASTING: YES TSH Reviewed date:07/02/2024 08:04:35 PM Interpretation: Performing Lab:[place], [facility], [address], [place], [address] Symone Barnes MD Notes/Report: FASTING:YES FASTING: YES ANTINUCLEAR ANTIBODIES TITER AND PATTERN Reviewed date:07/02/2024 07:52:29 PM Interpretation: Performing Lab:[place], [facility], [address], [place], [address] Symone Barnes MD Notes/Report: FASTING:YES FASTING: YES JULIANNA TITER 1:40 A low level JULIANNA titer may be present in pre-clinical autoimmune diseases and normal individuals. Reference Range <1:40 Negative 1:40-1:80 Low Antibody Level >1:80 Elevated Antibody Level JULIANNA PATTERN Mitotic, NuMA-like Nuclear-Mitotic Apparatus-like pattern. Nuclear speckled staining with spindle fibers. Pattern associated with Sjogren's syndrome, systemic lupus erythematosus (SLE) and possibly other connective tissue disorders. AC-26: NuMA-like International Consensus on JULIANNA Patterns (https://doi.org/10.1515/ xsmn-4025-6206) THYROID PEROXIDASE ANTIBODIE S Reviewed date:07/02/2024 07:52:37 PM Interpretation: Performing Lab:[place]ISS, [facility], [address] [facility], [place], [address] Manjit Goldstein Notes/Report: FASTING:YES FASTING: YES THYROID PEROXIDASE ANTIBODIES 4 <9 IU/mL COMPREHENSIVE METABOLIC PANE L Reviewed date:09/03/2024 05:20:40 PM Interpretation: Performing Lab:[place], [facility], [address], [place], [address] Symone Barnes MD Notes/Report: FASTING:YES FASTING: YES ACTH, PLASMA Reviewed date:09/06/2024 02:02:02 PM Interpretation: Performing Lab:[facility], [address] [facility] , [place], [address] Abdelrahman Elaine M.D.,PhD Notes/Report: FASTING:YES FASTING: YES T3, FREE Reviewed date:09/03/2024 05:20:40 PM Interpretation: Performing Lab:[facility], [address], [place], [address] Symone Barnes MD Notes/Report: FASTING:YES FASTING: YES CORTISOL, TOTAL Reviewed date:09/03/2024 05:20:40 PM Interpretation: Performing Lab:[facility], [address], [place], [address] Symone Barnes MD Notes/Report: FASTING:YES PATIENT REFUSED SOME TESTING; PATIENT ENCOURAGED TO RETURN. FASTING: YES DHEA SULFATE Reviewed date:09/03/2024 05:20:40 PM Interpretation: Performing Lab:[facility], [address], [place], [address] Symone Barnes MD Notes/Report: FASTING:YES FASTING: YES HEMOGLOBIN A1c Reviewed date:09/03/2024 05:20:40 PM Interpretation: Performing Lab:[facility], [address] [facility] , [place], [address] Symone Barnes Notes/Report: FASTING:YES FASTING: YES LIPID PANEL Reviewed date:09/03/2024 05:20:40 PM Interpretation: Performing Lab:[facility], [address], [place], [address] Symone Barnes MD Notes/Report: FASTING:YES FASTING: YES T4, FREE Reviewed date:09/03/2024 05:20:40 PM Interpretation: Performing Lab:[facility], [address], [place], [address] Symone Barnes MD Notes/Report: FASTING:YES FASTING: YES TSH Reviewed date:09/03/2024 05:20:40 PM Interpretation: Performing Lab:[place], [facility], [address] [place], [address] Symone Barnes MD Notes/Report: FASTING:YES FASTING: YES DEXAMETHASONE Reviewed date:09/13/2024 01:56:33 PM Interpretation: Performing Lab:[facility],, [address] [place], [address] Brandie Mata MD,PhD,KACIE Notes/Report: SPLIT 09/02/2024 FROM [id number] FASTING:YES FASTING: YES DEXAMETHASONE 305 Reference Ranges for Dexamethasone: Baseline: Less than 20 ng/dL 1 mg dexamethasone overnight: 180-550 ng/dL (8:00-10:00 AM) This test was developed and its analytical performance characteristics have been determined by [facility]. It has not been cleared or approved by FDA. This assay has been validated pursuant to the CLIA regulations and is used for clinical purposes. Reason For Referral No Information Medications Medication SIG (Take, Route, Frequency, Duration) Notes Start Date End Date Status clonazePAM 1 MG TAKE 1 TABLET BY CLOVIS 3 TIMES NEEDED DAILY for 30 Days Unknown Zepbound 2.5 MG/0.5ML inject 2.5 mg Subcutaneous once weekly for 30 days 07/16/2024 Not-Taking Escitalopram Oxalate 20 MG 1 tab(s) orally once a day for 30 days 04/21/2024 Unknown Naltrexone HCl 50 MG 1 tab(s) orally onc e a day for 12 days 04/21/2024 Unknown Escitalopram Oxalate 10 MG 1 tab(s) orally once a day for 30 days 04/21/2024 Not-Taking Vraylar 4.5 MG for 30 Days Unk nown traZODone HCl 50 MG as directed orally Unknown Vraylar 1.5 MG TAKE 1 CAPSULE BY [place] [facility] DAILY for 90 Days Active Pantoprazole Sodium 40 MG for 30 Days Unknown busPIRone HCl 7.5 MG 1 tab(s) orally 2 t imes a day for 30 days 04/21/2024 Active Vyvanse 70 MG 1 cap(s) orally once a day (in the morning) Unknown Trelegy Ellipta 100-62.5-25 MCG/ACT 1 puff(s) inhaled once a day Unknown Zepbound 5 MG/0.5ML inject 5 mg Subcutan eous once weekly for 28 days 07/16/2024 Unknown HYDROcodone Bitartrate ER 10 MG 1 cap(s) orally every 12 hours prn Unknown Furosemide 20 MG for 90 Days A ctive metFORMIN HCl ER 500 MG 1 tab(s) orally once a day for 90 days 04/21/2024 Unknown Dilt-XR 120 MG for 90 Days Unk nown Vitamin D (Ergocalciferol) 1.25 MG (28919 UT) 1 cap(s) orally once a week for 90 days 04/21/2024 Unknown Metoprolol Succinate ER 50 MG for 90 Days Unknown Problems Problem Type SNOMED Code ICD Code Onset Dates Problem Status W/U Status Risk Notes Problem Vitamin D deficiency (04312448) Vitamin D deficiency, unspecified (E55.9) Active confirmed Problem Obesity (622411003) Obesity, unspecified (E66.9) Active confirmed Problem Fibromyalgia (852499873) Fibromyalgia (M79.7) Active confirmed Problem Disorder of adrenal gland (38801838) Disorder of adrenal gland, 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 Problem Generalized anxiety disorder (84056460) Generalized anxiety disorder (F41.1) Active confirmed Problem Insomnia (556361722) Insomnia due to medical condition (G47.01) Active confirmed Problem Chronic pain syndrome (885074145) Chronic pain syndrome (G89.4) Active confirmed Vital Signs Heart Rate 94 /min 09/25/2024 Blood pressure diastolic 82 mm Hg 09/25/2024 Height 68 in 09/25/2024 Blood pressure systolic 129 mm Hg 09/25/2024 Weight 334 lbs 09/25/2024 BMI 50.78 kg/m2 09/25/2024 Encounters Encounter Location Date Provider Diagnosis [facility] - Samantha Mcbride [address] [place] [address] 09/25/2024 Samantha Mcbride Obesity, unspecified E66.9 ; Prediabetes R73.03 ; Disorder of adrenal gland, unspecified E27.9 ; Other fatigue R53.83 ; Insomnia due to medical condition G47.01 ; Generalized anxiety disorder F41.1 and Dietary counseling and surveillance Z71.3 [facility], [facility] - Samantha Mcbride [address] [place] [address] 11/05/2024 Samantha [facility] - Samantha Mcbride [address] [place] [address] 07/16/2024 Samantha Mcbride Prediabetes R73.03 ; Obesity, unspecified E66.9 ; Other fatigue R53.83 and Encounter for screening for lipoid disorders Z13.220 [facility] [address] [place] [address] 07/11/2024 Provider Migration Abnormal weight gain R63.5 ; Prediabetes R73.03 and Vitamin D deficiency, unspecified E55.9 [facility] [employer] [facility] [facility], [facility] - Samantha Mcbride [address] [place] [address] 04/21/2024 Sue Leroy Abnormal weight gain R63.5 ; Prediabetes R73.03 ; Localized swelling, mass and lump, lower limb, bilateral R22.43 ; Other fatigue R53.83 ; Shortness of breath R06.02 ; Tachycardia, unspecified R00.0 ; Vitamin D deficiency, unspecified E55.9 ; Vitamin B12 deficiency anemia, unspecified D51.9 ; Chronic pain syndrome G89.4 and Iron deficiency E61.1 [facility] [address] [place] [address] 04/23/2024 Samantha [facility] - Samantha Mcbride [address] [place] [address] 06/23/2024 Samantha [facility] - Samantha Mcbride [address] [place] [address] 06/29/2024 Samantha Mcbride [facility] [address] [place] [address] 07/17/2024 Samantha [facility] - Samantha Mcbride [address] [place] [address] 08/11/2024 Samantha Mcbride [facility] [address] [place] [address] 08/24/2024 Samantha Mcbride Obesity, unspecified E66.9 [facility] [address] [place] [address] 09/13/2024 Samantha Mcbride [facility] [address] [address] 05/06/2024 Sue Leroy [facility] [address] [address] 06/10/2024 Sue Leroy Assessments Encounter Date Diagnosis (ICD Code) Assessment Notes Treatment Notes Treatment Clinical Notes Section Notes 09/25/2024 Obesity, unspecified (ICD-10 - E66.9) 09/25/2024 Prediabetes (ICD-10 - R73.03) 07/16/2024 Obesity, unspecified (ICD-10 - E66.9) 07/16/2024 Prediabetes (ICD-10 - R73.03) 07/11/2024 Abnormal weight gain (ICD-10 - R63.5) 07/11/2024 Prediabetes (ICD-10 - R73.03) 04/21/2024 Abnormal weight gain (ICD-10 - R63.5) -Will re-do DST, marijuna use discontinue for 4wks. Total cortisol, dexamethasone level - Perform ACTH and DHEA-S tests to evaluate adrenal or pituitary function. - Schedule tests after four weeks of marijuana cessation 04/21/2024 Prediabetes (ICD-10 - R73.03) -Pt agreeable to start metformin 500mg XR with largest meal of the day. Pt aware of side effect profile. 08/24/2024 Obesity, unspecified (ICD-10 - E66.9) 09/25/2024 Disorder of adrenal gland, unspecified (ICD-10 - E27.9) 07/16/2024 Other fatigue (ICD-10 - R53.83) 04/21/2024 Localized swelling, mass and lump, lower limb, bilateral (ICD-10 - R22.43) - Continue furosemide for swelling management. - Refer to Dr. Aleman for a second opinion on cardiology and swelling management. - Monitor the response to metformin for potential weight loss and improvement in insulin resistance. 09/25/2024 Other fatigue (ICD-10 - R53.83) 07/16/2024 Encounter for screening for lipoid disorders (ICD-10 - Z13.220) 04/21/2024 Other fatigue (ICD-10 - R53.83) - Plan to recheck thyroid function with free T3 and free T4. - Refill prescriptions for vitamin B12, folic acid, and vitamin D3. - Monitor the patient's response to treatment and reevaluate in 6-7 weeks. 09/25/2024 Insomnia due to medical condition (ICD-10 - G47.01) 04/21/2024 Shortness of breath (ICD-10 - R06.02) 09/25/2024 Generalized anxiety disorder (ICD-10 - F41.1) 04/21/2024 Tachycardia, unspecified (ICD-10 - R00.0) -Refer to [facility] given pt tachycardia, bilateral limb swelling and shortness of breath. She has seen [facility] however given metoprolol, then diltazelem w/o improvement of symptoms. - Continue diltiazem for tachycardia management. - Reevaluate the effectiveness of diltiazem in controlling symptoms. 07/11/2024 Vitamin D deficiency, unspecified (ICD-10 - E55.9) 04/21/2024 Vitamin D deficiency, unspecified (ICD-10 - E55.9) 09/25/2024 Dietary counseling and surveillance (ICD-10 - Z71.3) 04/21/2024 Vitamin B12 deficiency anemia, unspecified (ICD-10 - D51.9) -Paper rx provided for cyanocobalamin 1000mcg/ml injections subcutaneously Q weekly along with insulin syringes. 04/21/2024 Chronic pain syndrome (ICD-10 - G89.4) -Medicinal marijuna use, pain usually in right side of arm/shoulder/chest. She uses hydrocodone PRN for pain breakthrough. 04/21/2024 Iron deficiency (ICD-10 - E61.1) -Pt advised to start supplementing with 65mg of elemental iron. 04/21/2024 Other [facility]: CBC, CMP, JULIANNA, RF, IRON/IBC, FT3, FT4, TSH, TPO VIT B12 Schedule a follow-up in 6-7 weeks to evaluate the response to treatments and discuss further management options. Encourage the patient to contact the clinic if any issues arise with the prescribed medications or if new symptoms develop. Case discussed with ALFONSO Grider. Agree with plan. Samantha Mcbride MD 07/16/2024 Other Assessment and Plan: 1. 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 Insomnia - Continue current sleep medication regimen - Reevaluate sleep apnea status if symptoms worsen or weight gain continues 3. Prediabetes - Continue metformin once daily - Encourage patient to monitor blood sugars periodically - Reevaluate A1c in 2 months 4. Hypertension - Continue current blood pressure medication regimen - Monitor blood pressure regularly 5. Early hypothyroidism - Recommend [id number] Thyroid Support supplement from [facility] - Reevaluate thyroid function in 2 months and consider prescription medication if needed 6. Fatigue and possible vitamin deficiencies - Continue B12 supplementation - Add folic acid supplementation - Reevaluate energy levels in 2 months 7. Blurry vision - Encourage patient to follow up with eye doctor for evaluation 8. Possible weight management with Zepbound - Investigate insurance coverage for Zepbound - If approved, provide patient with instructions for titration and administration 9. Follow-up - Schedule a follow-up appointment in 2 months to reevaluate labs, weight, and overall health status Spent 25 minutes preparing to see the patient (ex review of tests/chart), obtaining and / or reviewing separately obtained history, performing a medically appropriate examination and/or evaluation, counseling and educating the patient/family/careg iver, ordering medications, tests, or procedures, referring and communicating with other health acute care surgeon, documenting clinical information in the electronic or other health record, independently interpreting results and communicating results to the patient/family/careg iver and care coordinating patient plan. Patient alert and oriented x 4 and aware of discussion noted above and in agreeance to plan in management of weight gain/obesity, autoimmune thyroiditis, fatigue, and prediabetes. 09/25/2024 Other Assessment and Plan: Suspected Adilene's SyndromePatient exhibits symptoms indicative of Adilene's syndrome: [...] Monitor lipid levels. Reassess after completing the Anderson's workup and potential treatment. Impaired Fasting GlucoseRecent [...] and communicating with other health acute care surgeon, documenting clinical information in the electronic or other health record, independently interpreting results and communicating results to the patient/family/careg iver and care coordinating patient plan. Patient alert and oriented x 4 and aware of discussion noted above and in agreeance to plan in management of obesity/weight management, prediabetes, anxiety/insomnia, fatigue and concern for hypercortisolism. Plan Of Treatment Pending Test Test Name Order Date CT adrenal gland W/WO 09/25/2024 Insurance Providers Payer Name Payer Address Payer Phone Subscriber Number Group Number Insured Name Patient Relationship to Insured Coverage Start Date Coverage End Date [facility] 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
--- OUTSIDE RECORDS SUMMARY | 2024-12-21 18:10 | XMS_ITS | Patient Health Record ---
Author Organization [facility] Address [address] [address] Care Team Providers Care Entry Specialist Name Role Phone Samantha Mcbride Primary Care Provider UnavailBROOKE Blanc Unavailable [phone] Gretchen Moran Unavailable [phone] Allergies Allergen (clinical drug ingredient) Drug/Non Drug Allergy documented on EMR Reaction Allergy Type Onset Date Status amitriptyline Amitriptyline Unknown Drug Allergy Active erythromycin Erythromycin Unknown Drug Allergy A ctive gabapentin Gabapentin Unknown Drug Allergy Activ e metoprolol Metoprolol Unknown Drug Allergy Activ e minocycline Minocycline Unknown Drug Allergy Act mohamud prochlorperazine Prochlorperazine Unknown Drug Allergy Active ramelteon Ramelteon Unknown Drug Allergy Active topiramate Topiramate Unknown Drug Allergy Activ e Reason For Referral Reason Pt/ Ot for Lymphedem a Diagnosis 1 Lymphedema, not else where classified (I89.0) Referral Organization [facility] Referring Provider First Name BROOKE Referring Provider Last Name AJAY Referring Provider Speciality Cardiology Referred Provider Specialty Physical The rapist Referral Priority Routine Medications Medication SIG (Take, Route, Frequency, Duration) Notes Start Date End Date Status Ranolazine ER 500 MG 1 tablet Orally Twi ce a day for 90 days Active Montelukast Sodium 10 MG 1 tablet Orally Once a day Active Lexapro 10 MG 1 tablet Orally Thre e tables daily Active Alogliptin-metFORMIN HCl 12.5-500 MG 1 tablet Orally Twice a day Active Restasis 0.05 % 1 drop into affected eye Ophthalmic Twice a day Active Diltiazem HCl CR Act mohamud BuSpar Active Trelegy Ellipta 100-62.5-25 MCG/ACT 1 puff Inhalation Once a day Active clonazePAM 1 MG 1 tablet Orally Once a day Active Vyvanse 70 MG 1 capsule in the mor ollie Orally Once a day Active traZODone HCl 100 MG 1 tablet at bedtime Orally Once a day Active Furosemide 20 MG 1 tablet Orally Once a day Active Pantoprazole Sodium 40 MG 1 tablet Orall y Once a day Active Tono 128 5 % 1 application into t he lower eyelid of affected eye Ophthalmic Once a day Active Vraylar 4.5 MG 1 capsule Orally Onc e a day Active Vitamin D2 Active Cardizem CD 240 MG 1 capsule Orally Onc e a day for 30 days 09/16/2024 Active Cannabidiol Active Nitroglycerin 0.4 MG 1 tablet Sublingual every 5 minutes as needed up to 3 doses for 30 days 08/25/2024 Active ZyrTEC 10 MG 1 tablet Orally Once a day Active Iron Active Vitamin C Active Social History Tobacco Use: Social History Observation Description Date Details (start date - stop date) Never Smoker NA - NA Tobacco Control (Standard) Question Answer Notes Tobacco use: Nonsmoker AUDIT-C (Standard) Question Answer Notes Did you have a drink contain ing alcohol in the past year? Yes How often did you have six o r more drinks on one occasion in the past year? Never (0 point) How many drinks did you have on a typical day when you were drinking in the past year? 1 or 2 drinks (0 point) How often did you have a dri nk containing alcohol in the past year? 2 to 4 times a month (2 points) Points 2 Interpretation Negative Problems Problem Type SNOMED Code ICD Code Onset Dates Problem Status W/U Status Risk Notes Problem Morbid obesity (disorder) (091930767) Morbid (severe) obesity due to excess calories (E66.01) Active confirmed Problem Lymphedema (278513240) Lymphedema, not elsewhere classified (I89.0) Active confirmed Problem Palpitations (04371249) Palpitations (R00.2) Active confirmed Problem Dyspnea (075314206) Dyspnea, unspecified (R06.00) Active confirmed Problem Chest pain (51493910) Chest pain, unspecified (R07.9) Active confirmed Problem Syncope and collapse (914339647) Syncope and collapse (R55) Active confirmed Problem Mixed hyperlipidemia (287193744) Hyperlipemia, mixed (E78.2) Active confirmed Vital Signs Heart Rate 99 /min 09/15/2024 Blood pressure diastolic 67 mm Hg 09/15/2024 Height 68 in 09/15/2024 Blood pressure systolic 112 mm Hg 09/15/2024 Weight 324 lbs 09/15/2024 BMI 49.26 kg/m2 09/15/2024 Encounters Encounter Location Date Provider Diagnosis [facility] [address] [facility] [address] [place] [address] 05/19/2024 BROOKE MOSS [facility] [address] [place], [place] [id number] 06/23/2024 BROOKE MOSS [facility] [address] [facility] [address] [place] [address] 06/23/[address] [facility] [address] [place] [address] [address] [place] [address] 08/06/2024 BROOKE MOSS [facility] [address] [facility] [address] [place] [address] 08/24/2024 BROOKE MOSS [facility] [address] [facility] [address] [place], [place] [id number] 09/17/2024 BROOKE MOSS [address] [id number] 10/19/2024 BROOKE MOSS [address] [id number] 05/04/2024 BROOKE MOSS Syncope and collapse R55 ; Morbid (severe) obesity due to excess calories E66.01 ; Palpitations R00.2 ; Dyspnea, unspecified R06.00 ; Chest pain, unspecified R07.9 and Lymphedema, not elsewhere classified I89.[address] [id number] 08/24/2024 Gretchen Moran Syncope and collapse R55 ; Chest pain, unspecified R07.9 ; Morbid (severe) obesity due to excess calories E66.01 ; Palpitations R00.2 ; Dyspnea, unspecified R06.00 and Lymphedema, not elsewhere classified I89.[address] [id number] 09/15/2024 BROOKE AJAY Syncope and collapse R55 ; Morbid (severe) obesity due to excess calories E66.01 ; Palpitations R00.2 ; Dyspnea, unspecified R06.00 ; Chest pain, unspecified R07.9 and Lymphedema, not elsewhere classified I89.0 [facility] [address] [place] [address] 05/04/2024 BROOKE AJAY [facility] [address] [place] [address] 05/04/2024 BROOKE AJAY [facility] [address] [place] [address] 05/06/2024 BROOKE AJAY Hyperlipemia, mixed E78.[address] [id number] 05/12/2024 BROOKE AJAY [address] [id number] 06/22/2024 BROOKE AJAY [facility] [address] [place] [address] 08/25/2024 BROOKE AJAY [address] [id number] 08/31/2024 BROOKE AJAY [address] [id number] 08/31/2024 BROOKE AJAY Chest pain, unspecified R07.[address] [id number] 12/02/2024 BROOKE AJAY Chest pain, unspecified R07.[address] [id number] 12/04/2024 RBOOKE AJAY Chest pain, unspecified R07.9 Assessments Encounter Date Diagnosis (ICD Code) Assessment Notes Treatment Notes Treatment Clinical Notes Section Notes 05/04/2024 Morbid (severe) obesity due to excess calories (ICD-10 - E66.01) Need to check lipids if not done,weiht loss measures,perhaps GLP1a,per Dr Mcbride 05/04/2024 Syncope and collapse (ICD-10 - R55) Suspect lasix is contributing to it,dc lasix,if not any better consider prolonged monitoring,has mildy abnormal holter 05/06/2024 Hyperlipemia, mixed (ICD-10 - E78.2) 08/24/2024 Chest pain, unspecified (ICD-10 - R07.9) High risk treadmil stress study today. Non specific ST chnages. Decreased functional capacity. Recommend an nuclear stress study to more definitively rule out ischemia in view of multiple cardiac risk factors in this high risk patient. Will start ranexa daily. increase to BID after 3-4 days if no hypotension. Will avoid isosorbide d/t baseline hypotension. May need to consider changing CCB to metoprolol. 08/24/2024 Syncope and collapse (ICD-10 - R55) 08/31/2024 Chest pain, unspecified (ICD-10 - R07.9) 09/15/2024 Syncope and collapse (ICD-10 - R55) Stable,less tachy,suspect multifactorial,v asovagal,will consider tachy as due to pylmo issues/obesity,w ill increase cardizem to 240 mg qd 12/02/2024 Chest pain, unspecified (ICD-10 - R07.9) 12/04/2024 Chest pain, unspecified (ICD-10 - R07.9) 09/15/2024 Morbid (severe) obesity due to excess calories (ICD-10 - E66.01) Will need aggressive WL,per dr Mcbride 08/24/2024 Morbid (severe) obesity due to excess calories (ICD-10 - E66.01) Cont weight loss efforts. 05/04/2024 Palpitations (ICD-10 - R00.2) Agree with cardizem, 05/04/2024 Dyspnea, unspecified (ICD-10 - R06.00) Has limiting dyspnea,FH of early heart disease,obesity, chest pain,will benefit from nuc stress test 08/24/2024 Palpitations (ICD-10 - R00.2) 09/15/2024 Palpitations (ICD-10 - R00.2) Could not tolerate bb,will increase cardizem,has a low risk nuc,doubt cad 09/15/2024 Dyspnea, unspecified (ICD-10 - R06.00) 08/24/2024 Dyspnea, unspecified (ICD-10 - R06.00) 05/04/2024 Chest pain, unspecified (ICD-10 - R07.9) 05/04/2024 Lymphedema, not elsewhere classified (ICD-10 - I89.0) Leg Measurements: Left Calf: _16____ Left Ankle: 13____ Right Calf: 15 Right Ankle:13 ____ This case of Lymphedema is caused by: _X_ Stage II Lymphedema, not elsewhere classified [I89.0] SYMPTOMS DESPITE CONSERVATIVE THERAPY: ___ Hyperkeratosis/ fibrosis _X_ Hyperplasia _X_ Hyperpigmentatio n ___ Skin breakdown with lymphorrhea (skin weeping) ___ Papillomatosis ___ Recurrent cellulitis ___ Elephantiasis _x__ Progressive edema _X_ Truncal/abdomina l lymphedema ___ Genital swelling _X_ Unable to control swelling _X_ Impaired ROM _X_ Impaired mobility ___ Pain CONSERVATIVE TREATMENT: Patient has tried the following conservative treatments yet swelling remains. _X_ Compression garments: >4 WEEKS _X_ Elevation: >4 WEEKS _X_ Exercise: >4 WEEKS PNEUMATIC COMPRESSION DEVICE EVALUATION: Patient has tried an E0651 basic pneumatic compression device? [YES or NO]Add PT/OT for LE/compression/L E pump 08/24/2024 Lymphedema, not elsewhere classified (ICD-10 - I89.0) 09/15/2024 Chest pain, unspecified (ICD-10 - R07.9) Appear better on Ranexa 09/15/2024 Lymphedema, not elsewhere classified (ICD-10 - I89.0) Plan Of Treatment Pending Test Test Name Order Date Lipids, Total, Serum 05/06/2024 Insurance Providers Payer Name Payer Address Payer Phone Subscriber Number Group Number Insured Name Patient Relationship to Insured Coverage Start Date Coverage End Date [facility] [address] [place], [place] [id number] Loly Rios Self - patient is the insured Medical (General) History Medical History History ICD Code Arthritis or DJD Anemia Asthma Depression Insulin Resistance Surgical History Surgery Date(Month/Year) Temp Mandibular Setback 1992 Gastric Bypass (Open) 1996 Right Breast Lumpectomy 1997 Right Breast Biopsy 2016 Left Ovary Removal 2017 Both Fallopian Tubes Removed 2018
--- OUTSIDE RECORDS SUMMARY | 2024-12-21 18:10 | XMS_ITS | Clinical Summary ---
Author Organization [facility] Address [address], [address] [address] Phone Care Team Providers Care Supervisor Dairy Sanitation Name Role Phone Provider, None Primary Care Provider Unavailabl e Allergies Active Allergy Reactions Criticality Noted Date Comments Adhesive Tape Rash 12/06/2015 Erythromycin Itching 09/28/2015 Minocycline Hcl Itching 12/12/2015 Ramelteon Itching 12/08/2015 Medications omeprazole (PRILOSEC) 20 MG CAPSULE DELAYED RELEASE Take 20 mg by mouth daily. 3 6 Active VENTOLIN HFA 108 (90 BASE) MCG/ACT Aerosol Solution take 1-2 Puffs by inhalation as needed. 0 6 Active DULERA 200-5 MCG/ACT Aerosol take 2 Puffs by inhalation 2 times daily. 2 6 Active montelukast (SINGULAIR) 10 MG Tablet Take 10 mg by mouth daily. 2 6 Active progesterone (PROMETRIUM) 100 MG Capsule Take 100 mg by mouth daily. 2 5 Active Progesterone Micronized 200 MG Capsule 200 mg daily. TAKEN WITH 100MG TOTAL 300MG 2 5 Active predniSONE (DELTASONE) 20 MG Tablet Take 20 mg by mouth daily. FOR EXACERBATION OF ASTHMA PRN 0 5 Active RESTASIS 0.05 % Emulsion Place 1 Drop in affected eye(s) 2 times daily. 5 6 Active DYMISTA 137-50 MCG/ACT Suspension take 1 [place] by inhalation 2 times daily. 5 6 Active TYROSINE PO Take 700 mg by mouth daily. Active Phenylalanine 500 MG Tablet Take 1 Tab by mouth daily. Active Cholecalciferol (VITAMIN D PO) 5 Drops by Sublingual route three times a week. Active Cetirizine HCl (ZYRTEC ALLERGY PO) Take 10 mg by mouth daily. Active Fluticasone Propionate, Inhal, (FLOVENT IN) take 2 Puffs by inhalation 2 times daily. Active Evening [place] Oil 1000 MG Capsule Take 1 Cap by mouth daily. Active THEANINE PO Take 400 mg by mouth 2 times daily. Active sucralfate (CARAFATE) 1 GM/10ML Suspension Take 10 mL by mouth every 6 hours. 450 mL 2 7 Active esomeprazole (NEXIUM) 40 MG CAPSULE DELAYED RELEASE Take 1 Cap by mouth 2 times daily. 60 Cap 6 7 Active RABEprazole (ACIPHEX) 20 MG Tablet Delayed Response Take 2 Tabs by mouth daily. 90 Tab 3 8 Active Active Problems Problem Noted Date Diagnosed Date GERD (gastroesophageal reflux disease) 6 Asthma 09/28/2015 Family History Medical History Relation Name Comments Aneurysm Father High Cholesterol Father Hypertension Father Breast Cancer Maternal Aunt Diabetes Maternal Grandmother High Cholesterol Mother Hypertension Mother Osteoporosis Mother Lung Cancer Paternal Grandfather Diabetes Paternal Grandmother Relation Name Status Comments Father Alive Maternal Aunt Maternal Grandmother Mother Alive Paternal Grandfather Paternal Grandmother Social History Tobacco Use Types Packs/Day Years Used Date Smoking Tobacco: Former Cigarettes 2 8 0 12/11/2001 - 12/11/2009 Smokeless Tobacco: Never Tobacco Cessation:Counseling Given: No Alcohol Use Standard Drinks/Week Comments No 0 (1 standard drink = 0.6 oz pur e alcohol) Sexually Active Control Partners Comments Yes Male Comments No Sex and Gender Information Value Date Recorded Sex Assigned at Not on file Legal Sex Female 11:04 PM CDT Gender Identity Not on file Sexual Orientation Not on file Last Filed Vital Signs Vital Sign Reading Time Taken Comments Blood Pressure 128/86 07/03/2017 10:39 AM [employer]AND[employer] Pulse 89 07/03/2017 10:39 AM [employer] Temperature 36.8 C (98.3 F) 07/03/2017 10:39 AM [employer] Respiratory Rate 18 07/03/2017 10:39 AM [employer]AND[employer] Oxygen Saturation 98% 07/03/2017 10:39 AM [employer]AND[employer]KER Inhaled Oxygen Concentration - - Weight 96.6 kg (213 lb) 07/03/2017 10:39 AM [employer]AND[employer] Height 175.3 cm (5' 9 ) 07/03/2017 10:39 AM [employer]AND[employer] Body Mass Index 31.45 07/03/2017 10:39 AM [employer]AND[employer] Plan of Treatment Health Maintenance Due Date Last Done Comments Hepatitis C Virus (HCV) Screening 1974 TdaP Immunization 1974 Hepatitis B Immunization (1 of 3 - 19+ 3-dose series) 1993 Pneumococcal Immunization (5 0+ years) (1 of 2 - PCV) 1993 Colonoscopy 2019 Colorectal Cancer Screening 2019 Cologuard 01/14/2024 Immunochemical Fecal Occult Blood 01/14/2024 Zoster Immunization (1 of 2) 01/14/2024 Influenza Immunization (#1) 2024 SARS-COV-2 Immunization ( season) 2024 Respiratory Syncytial Virus (RSV) Immunization (Adult) (1 - 1-dose 75+ series) 2049 Meningococcal Immunization (ACWY) Aged Out No longer eligible based on patient's age to complete this topic Rotavirus Immunization Aged Out No lo nger eligible based on patient's age to complete this topic Insurance Care Teams Supervisor Dairy Sanitation Relationship Specialty Start Date End Date Provider, None [place] PCP - General 02/09/21
--- OUTSIDE RECORDS SUMMARY | 2024-12-21 18:10 | XMS_ITS | Patient Health Record ---
Author Organization [facility] Address [address] [facility] [address] [place] [address] Care Team Providers Care Clinical Account Liaison Name Role Phone Mary Luna Unavailable [phone] Reason For Referral No Information Plan Of Treatment No Information Insurance Providers Payer Name Payer Address Payer Phone Subscriber Number Group Number Insured Name Patient Relationship to Insured Coverage Start Date Coverage End Date [facility] [address] [place] [address] [id number] Loly Rios Self - patient is the insured Medical (General) History Surgical History Surgery Date(Month/Year) Lumpectomy; 2021-04-12 Gastric Bypass; 2021-04-12 breast cyst removed; 2021-04-12
--- OUTSIDE RECORDS SUMMARY | 2024-12-21 18:10 | XMS_ITS | Encounter Summary ---
Author Organization [facility] Address [address] [place] [address] Phone Care Team Providers Care Merchandise Presentation Manager Name Role Phone Dilcia Ivan MD Primary Care Provi beronica Skylar Huffman RN Unavailable [phone] Encounter Details Date Type Department Care Team (Late st Contact Info) Description 04/18/2023 Documentation [facility] Neurosurgery [address] [facility] 6[address] [place] [address] [place] [address] Abigail Morton [facility] Social History Tobacco Use Types Packs/Day Years Used Date Smoking Tobacco: Former Cigarettes 0.5 8 1 992 - 2000 Smokeless Tobacco: Never AUDIT-C Answer Date Recorded Q1: How often do you have a drink containing alc ohol? Monthly or less 04/04/2023 Q2: How many drinks containi ng alcohol do you have on a typical day when you are drinking? 1 or 2 04/04/2023 Q3: How often do you have si x or more drinks on one occasion? Never 04/04/2023 PHQ-2 Answer Date Recorded PHQ-2 Total Score (If total score is 3 or more points, staff should administer the PHQ-9) 0 08/13/2022 Comments No Sex and Gender Information Value Date Recorded Sex Assigned at Not on file Legal Sex Female 1:54 AM C[employer] [facility] [employer] [facility] Gender Identity Female 10/25/2021 3:40 PM C[facility] [employer] [employer] Sexual Orientation Straight 10/25/2021 3: 40 PM CODING SPECIALIST [employer] HE[employer] documented as of this encounter Plan of Treatment Not on file documented as of this encounter Visit Diagnoses Not on filedocumented in this encounter Additional Health Concerns Infection Onset Date Last Indicated Resolved Time COVID: Suspected 06/06/2023 06/06/2023 06/06/2023 6:57 PM CDT COVID: Suspected 06/06/2023 06/06/2023 06/06/2023 10:57 PM CDT documented as of this encounter Care Teams Merchandise Presentation Manager Relationship Specialty Start Date End Date Dilcia Ivan MD [facility] [address] [place] [id number] PCP - General Family Medicine 06/14/21 Skylar Huffman, RN [address] [place] [address] Nurse Navigator 03/01/23 07/29/23 documented as of this encounter
--- OUTSIDE RECORDS SUMMARY | 2024-12-21 18:10 | XMS_ITS | Patient Health Record ---
Author Organization [facility] [employer] [facility] ([address]) Address [address] [place] [address] Care Team Providers Care Repairer Controller Tester Name Role Phone Kishan Sweeney Primary Care Provider Unavailab Ivis Davila Unavailable [phone] Abdelrahman Riley Unavailable [phone] [facility]-Migration, Provider Unavailable Unavailab rajan Allergies Allergen (clinical drug ingredient) Drug/Non Drug Allergy documented on EMR Reaction Allergy Type Onset Date Status erythromycin Erythromycin rash Drug Allergy A ctive minocycline Minocin rash Drug Allergy Activ e ramelteon Rozerem rash Drug Allergy Active Reason For Referral No Information Medications Medication SIG (Take, Route, Frequency, Duration) Notes Start Date End Date Status Montelukast Sodium 10 MG 1 tab(s) orally once a day (in the evening) for 30 day(s) Active Progesterone 100 MG 2 cap(s) orally once a day (at bedtime) Active PATADAY ONCE DAILY RELIEF EXTRA STRENGTH 0.7% 1 GTT IN EACH AFFECTED EYE ONCE A DAY *Please review for potential replacement for e-prescription and drug interaction check* Active VANICREAM MOISTURIZING CREAM N/A NECESSARY APPLY TO EXTERNAL SURFACES OFTEN NEEDED TO FACE, HANDS, FEET OR BODY FOR DAILY USE BY THE ENTIRE FAMILY for 30 DAY(S) *Please review for potential replacement for e-prescription and drug interaction check* Active VITAMIN D3 2000 intl units as directed orally once a day for 30 day(s) Active PRILOSEC OTC 20 mg 1 tab(s) orally once a day Active BUSPIRONE 7.5 mg 1 tab(s) orally 2 times a day for 30 day(s) 09/18/2021 Active Dulera 200-5 MCG/ACT 2 puff(s) inhaled 2 times a day for 30 day(s) Active TIZANIDINE 2 mg 2 tab(s) orally ever y 8 hours for 30 day(s) 09/18/2021 Active Fluticasone Propionate 50 MCG/ACT 2 spray(s) intranasally once a day Active VYVANSE 60 mg for 30 Active NASAL WASHES N/A DIRECTED INTRANASALLY NEEDED *Please review for potential replacement for e-prescription and drug interaction check* Active PANTOPRAZOLE 40 mg 1 tab(s) orally once a day for 30 day(s) Active ZyrTEC Allergy 10 MG 1 tab(s) orally onc e a day Active DULERA 5 mcg-200 mcg/inh INHALE 2 PUFFS BY MOUTH TWICE DAILY for 30 Active Hydrocortisone 1 % 1 darren applied topically 3 times a day for 14 day(s) Active Montelukast Sodium 10 MG 1 tab(s) orally once a day (in the evening) for 90 days Active AUVI-Q 0.3 mg as directed intramuscularly once for 30 day(s) Active AEROCHAMBER MDI SPACER - MOUTHPIECE (ADULT) N/A DIRECTED PO PER ASTHMA ACTION PLAN for 30 DAY(S) *Please review for potential replacement for e-prescription and drug interaction check* Active ESCITALOPRAM 20 MG for 90 A ctive Ventolin HFA 108 (90 Base) MCG/ACT 2 puff(s) inhaled 4 times a day for 30 day(s) Active PROGESTERONE 100 mg 2 cap(s) orally once a day (at bedtime) Active Dulera 200-5 MCG/ACT INHALE 2 PUFFS BY MOUTH TWICE DAILY for 30 Active SIT (TRADITIONAL) VARIABLE PER SCHEDULE SC PER SCHEDULE for TO BE DETERMINED *Please review for potential replacement for e-prescription and drug interaction check* Active ZYRTEC 10 mg 1 tab(s) orally once a day Active MONTELUKAST SODIUM 10 mg 1 tab(s) orally once a day (in the evening) for 30 day(s) Active Vyvanse 60 MG for 30 Active VENTOLIN HFA CFC free 90 mcg/inh 2 puff(s) inhaled 4 times a day for 30 day(s) Active Pantoprazole Sodium 40 MG 1 tab(s) orally once a day for 30 day(s) Active DULERA 5 mcg-200 mcg/inh 2 puff(s) inhaled 2 times a day for 30 day(s) Active Vitamin D3 50 MCG (2000 UT) as directed orally once a day for 30 day(s) Active FLUTICASONE PROPIONATE 50 mcg/inh 2 spray(s) intranasally once a day Active PriLOSEC OTC 20 MG 1 tab(s) orally once a day Active Auvi-Q 0.3 MG/0.3ML as directed intramuscularly once for 30 day(s) Active Escitalopram Oxalate 20 MG for 90 Active HYDROCORTISONE TOPICAL 1% 1 darren applied topically 3 times a day for 14 day(s) Active busPIRone HCl 7.5 MG 1 tab(s) orally 2 times a day for 30 day(s) 09/18/2021 Active MONTELUKAST SODIUM 10 mg 1 tab(s) orally once a day (in the evening) for 90 days Active tiZANidine HCl 2 MG 2 tab(s) orally ever y 8 hours for 30 day(s) 09/18/2021 Active Immunizations Vaccine Route Administration Date Status Comme nts Influenza Unknown 06/08/2016 Administered NOC Flucelevax Quadrivalent Unknown 08/10/2020 Refused NOC PedvaxHIB IM Intramuscular 01/21/2015 Administered NOC Pneumovax 23 IM Intramuscular 01/21/2015 Administered NOC Tdap IM Intramuscular 01/21/2015 Administered Social History Tobacco Use: Social History Observation Description Date Details (start date - stop date) Never Smoker NA - NA Smoking Smart Form: Question Answer Notes Are you a: never smoker Problems Problem Type SNOMED Code ICD Code Onset Dates Problem Status W/U Status Risk Notes Problem Hypogammaglobulinemi a (196600356) 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) Active confirmed Problem Dysthymia (09276558) Dysthymic d isorder (F34.1) Active confirmed Problem Complex regional cassidy n syndrome type I (disorder) (723570425) Complex regional pain syndrome I, unspecified (G90.50) Active confirmed Problem Chronic allergic conjunctivitis (17436537) Other chronic allergic conjunctivitis (H10.45) Active confirmed Problem Allergic rhinitis caused by pollen (disorder) (80684416) Allergic rhinitis due to pollen (J30.1) Active confirmed Problem Allergic rhinitis caused by animal hair and dander (959004133971275) Allergic rhinitis due to animal (cat) (dog) hair and dander (J30.81) Active confirmed Problem Allergic rhinitis (39474931) Other allergic rhinitis (J30.89) Active confirmed Problem Chronic sinusitis (75131735) Chronic sinusitis, unspecified (J32.9) Active confirmed Problem Exacerbation of moderate persistent asthma (disorder) (424998439) Moderate persistent asthma with (acute) exacerbation (J45.41) Active confirmed Problem Functional dyspepsia (6202679) Functional dyspepsia (K30) Active confirmed Problem Allergic rhinitis caused by pollen (disorder) (14034763) Allergic rhinitis due to pollen (J30.1) Active confirmed Problem Allergic rhinitis caused by animal hair and dander (011086936431841) Allergic rhinitis due to animal (cat) (dog) hair and dander (J30.81) Active confirmed Problem Allergic rhinitis (48663008) Other allergic rhinitis (J30.89) Active confirmed Problem Uncomplicated modera te persistent asthma (481284419) Moderate persistent asthma, uncomplicated (J45.40) Active confirmed Problem Chronic allergic conjunctivitis (20162278) Other chronic allergic conjunctivitis (H10.45) Active confirmed Problem Allergic contact dermatitis caused by chemical (15762668519726788) Allergic contact dermatitis due to other chemical products (L23.5) Active confirmed Problem Eruption of skin (816040253) Rash and other nonspecific skin eruption (R21) Active confirmed Problem Elevated blood pressure reading without diagnosis of hypertension (794887456) Elevated blood-pressure reading, without diagnosis of hypertension (R03.0) Active confirmed Problem Vitamin D deficiency (66731314) Vitamin D deficiency, unspecified (E55.9) Active confirmed Problem Disorder of vocal co rd (04324259) Other diseases of vocal cords (J38.3) Active confirmed Problem History of systemic steroid therapy (080864672531747) Personal history of systemic steroid therapy (Z92.241) Active confirmed Encounters Encounter Location Date Provider Diagnosis AYALA Ahn [facility] Shanita Fermin [place] [id number] 02/08/2024 Provider ZZ-Migration Plan Of Treatment Pending Test Test Name Order Date X ray : Chest 02/16/2021 X ray : Chest 02/17/2021 Insurance Providers Payer Name Payer Address Payer Phone Subscriber Number Group Number Insured Name Patient Relationship to Insured Coverage Start Date Coverage End Date [facility] [address] [place] [address] [phone] [id number] Gabriel Gianni Spouse - patient is the spouse of the insured Medical (General) History Medical History History ICD Code Allergic rhinitis due to pollen J30.1 Allergic rhinitis due to animal (cat) (d og) hair and dander J30.81 Other chronic allergic conjunctivitis H1 0.45 Moderate persistent asthma, uncomplicate d J45.40 Nonfamilial hypogammaglobulinemia D80.1 Chronic sinusitis, unspecified J32.9 Dysthymic disorder F34.1 Complex regional pain syndrome I, unspec ified G90.50 Tachycardia Surgical History Surgery Date(Month/Year) Tempo mandibular osteotomy naty 1992 Yayo en y gastric bypass 1996 Right breast lumpendectomy 1997 D & C 08/2015 Upper endoscopy 03/2015 Hospitalization History Reason Date(Month/Year) Same as surgeries above
--- OUTSIDE RECORDS SUMMARY | 2024-12-21 18:10 | XMS_ITS ---
Author Organization [facility] [employer] [place] ([address]) Address [address] [place] [address] Care Team Providers Care International Operations Manager Name Role Phone Kishan Sweeney Primary Care Provider Unavailab Ivis Davila Unavailable [phone] Abdelrahman Riley Unavailable [phone] ZZ-Migration, Provider Unavailable Unavailab le Allergies Allergen (clinical drug ingredient) Drug/Non Drug Allergy documented on EMR Reaction Allergy Type Onset Date Status erythromycin Erythromycin rash Drug Allergy A ctive minocycline Minocin rash Drug Allergy Activ e ramelteon Rozerem rash Drug Allergy [facility] Encounter Medications Medication SIG (Take, Route, Frequency, Duration) Notes Start Date End Date Status Dulera 200-5 MCG/ACT 2 puff(s) inhaled 2 times a day for 30 day(s) Active Fluticasone Propionate 50 MCG/ACT 2 spray(s) intranasally once a day Active Montelukast Sodium 10 MG 1 tab(s) orally once a day (in the evening) for 90 days Active AEROCHAMBER MDI SPACER - MOUTHPIECE (ADULT) N/A DIRECTED PO PER ASTHMA ACTION PLAN for 30 DAY(S) *Please review for potential replacement for e-prescription and drug interaction check* Active Ventolin HFA 108 (90 Base) MCG/ACT 2 puff(s) inhaled 4 times a day for 30 day(s) Active Dulera 200-5 MCG/ACT INHALE 2 PUFFS BY MOUTH TWICE DAILY for 30 Active SIT (TRADITIONAL) VARIABLE PER SCHEDULE SC PER SCHEDULE for TO BE DETERMINED *Please review for potential replacement for e-prescription and drug interaction check* Active Montelukast Sodium 10 MG 1 tab(s) orally once a day (in the evening) for 30 day(s) Active NASAL WASHES N/A DIRECTED INTRANASALLY NEEDED *Please review for potential replacement for e-prescription and drug interaction check* Active ZyrTEC Allergy 10 MG 1 tab(s) orally onc e a day Active Vyvanse 60 MG for 30 Active Auvi-Q 0.3 MG/0.3ML as directed intramuscularly once for 30 day(s) Active Escitalopram Oxalate 20 MG for 90 Active busPIRone HCl 7.5 MG 1 tab(s) orally 2 times a day for 30 day(s) 09/18/2021 Active tiZANidine HCl 2 MG 2 tab(s) orally ever y 8 hours for 30 day(s) 09/18/2021 Active Progesterone 100 MG 2 cap(s) orally once a day (at bedtime) Active PATADAY ONCE DAILY RELIEF EXTRA STRENGTH 0.7% 1 GTT IN EACH AFFECTED EYE ONCE A DAY *Please review for potential replacement for e-prescription and drug interaction check* Active Pantoprazole Sodium 40 MG 1 tab(s) orally once a day for 30 day(s) Active Vitamin D3 50 MCG (2000 UT) as directed orally once a day for 30 day(s) Active PriLOSEC OTC 20 MG [...] times a day for 14 day(s) Active Encounters Encounter Location Date Provider Diagnosis AYALA - [address] [place] [address] 02/08/2024 Provider ZZ-Migration Plan Of Treatment No Information Progress Notes * Loly PETERSONDOB:1975 (49 yo F)Acc No.[id number]:02/08/2024 Patient: Vivian BHARGAVI Loly Provider: Charly medrano Migration :1975 A ge:49 Y S ex:Female Date:02/08/2024 Address:[address] [place] [address] [place], [id number] Pcp:Kishan Sweeney Subjective: * Chief Complaints: * [...] * Electronic signature of Melva RICHMOND-Migration on 12/21/2024 at 06:09 PM CDT Sign off status: Pending * Provider: Charly medrano Migration Date: 0 02/08/2024 Generated for Bijal chavarria/Suzy/Marychuy on: 12/21/2024 06:09 PM CDT
== END 2024-12-21 16:31 | disposition left against medical advice (07) ==
DX: Z53.21 Procedure and treatment not carried out due to patient leaving prior to being seen by health care provider (principal)
CPT/HCPCS: 99199

== ENCOUNTER 2025-04-20 00:09 | Day surgery (SDC) | payer BC, SELFPAY ==
--- OUTSIDE RECORDS SUMMARY | 2024-02-08 16:30 | XMS_ITS ---
Author Organization [facility] [employer] [place] ([id number]) Address [address] [place] [address] Care Team Providers Care Adolescent Specialist Name Role Phone Kishan Sweeney Primary Care Provider Unavailab le Ivis Sosa Unavailable [phone] Abdelrahman Riley Unavailable [phone] ZZ-Migration, Provider Unavailable Unavailab le Allergies Allergen (clinical drug ingredient) Drug/Non Drug Allergy documented on EMR Reaction Allergy Type Onset Date Status erythromycin Erythromycin rash Drug Allergy A ctive minocycline Minocin rash Drug Allergy Activ e ramelteon Rozerem rash Drug Allergy Active REASON FOR VISIT [facility] Conversion Encounter Medications Medication SIG (Take, Route, Frequency, Duration) Notes Start Date End Date Status Dulera 200-5 MCG/ACT 2 puff(s) inhaled 2 times a day; Duration: 30 day(s) Active Fluticasone Propionate 50 MCG/ACT 2 spray(s) intranasally once a day Active Montelukast Sodium 10 MG 1 tab(s) orally once a day (in the evening); Duration: 90 days Active AEROCHAMBER MDI SPACER - MOUTHPIECE (ADULT) N/A DIRECTED PO PER ASTHMA ACTION PLAN; Duration: 30 DAY(S) *Please review for potential replacement for e-prescription and drug interaction check* Active Ventolin HFA 108 (90 Base) MCG/ACT 2 puff(s) inhaled 4 times a day; Duration: 30 day(s) Active Dulera 200-5 MCG/ACT INHALE 2 PUFFS BY MOUTH TWICE DAILY; Duration: 30 Active SIT (TRADITIONAL) VARIABLE PER SCHEDULE SC PER SCHEDULE; Duration: TO BE DETERMINED *Please review for potential replacement for e-prescription and drug interaction check* Active Montelukast Sodium 10 MG 1 tab(s) orally once a day (in the evening); Duration: 30 day(s) Active NASAL WASHES N/A DIRECTED INTRANASALLY NEEDED *Please review for potential replacement for e-prescription and drug interaction check* Active ZyrTEC Allergy 10 MG 1 tab(s) orally onc e a day Active Vyvanse 60 MG ; Duration: 30 A ctive Auvi-Q 0.3 MG/0.3ML as directed intramuscularly once; Duration: 30 day(s) Active Escitalopram Oxalate 20 MG ; Duration: 90 Active busPIRone HCl 7.5 MG 1 tab(s) orally 2 times a day; Duration: 30 day(s) 09/18/2021 Active tiZANidine HCl 2 MG 2 tab(s) orally ever y 8 hours; Duration: 30 day(s) 09/18/2021 Active Progesterone 100 MG 2 cap(s) orally once a day (at bedtime) Active PATADAY ONCE DAILY RELIEF EXTRA STRENGTH 0.7% 1 GTT IN EACH AFFECTED EYE ONCE A DAY *Please review for potential replacement for e-prescription and drug interaction check* Active Pantoprazole Sodium 40 MG 1 tab(s) orally once a day; Duration: 30 day(s) Active Vitamin D3 50 MCG (2000 UT) as directed orally once a day; Duration: 30 day(s) Active PriLOSEC OTC 20 MG 1 tab(s) orally once a day Active VANICREAM MOISTURIZING CREAM N/A NECESSARY APPLY TO EXTERNAL SURFACES OFTEN NEEDED TO FACE, HANDS, FEET OR BODY FOR DAILY USE BY THE ENTIRE FAMILY; Duration: 30 DAY(S) *Please review for potential replacement for e-prescription and drug interaction check* Active Hydrocortisone 1 % 1 darren applied topically 3 times a day; Duration: 14 day(s) Active Encounters Encounter Location Date Provider Diagnosis [facility] - [address] [place] [address] 02/08/2024 Provider ZZ-Migration Plan Of Treatment No Information Progress Notes * Loly PETERSONDOB:1975 (50 yo F)Acc No.[id number]:02/08/2024 Patient: Loly TANG Provider: Charly medrano Migration :1975 A ge:49 Y S ex:Female Date:02/08/2024 Address:[address] [place] [address] [place], [id number] Pcp:Kishan Sweeney Subjective: * Chief Complaints: * 1 . [facility] Conversion Encounter. * Medical History: * Medications: T aking Hydrocortisone 1 % Ointment 1 darren applied topically 3 times a day , Taking VANICREAM MOISTURIZING CREAM N/A MOISTURIZING CREAM NECESSARY APPLY TO EXTERNAL SURFACES OFTEN NEEDED TO FACE, HANDS, FEET OR BODY FOR DAILY USE BY THE ENTIRE FAMILY , Notes to Pharmacist: *Please review for potential replacement for e-prescription and drug interaction check*, Taking PATADAY ONCE DAILY RELIEF EXTRA STRENGTH 0.7% SOLUTION 1 GTT IN EACH AFFECTED EYE ONCE A DAY , Notes to Pharmacist: *Please review for potential replacement for e-prescription and drug interaction check*, Taking Progesterone 100 MG Capsule 2 cap(s) orally once a day (at bedtime) , Taking PriLOSEC OTC 20 MG Tablet Delayed Release 1 tab(s) orally once a day , Taking Vitamin D3 50 MCG (2000 UT) Capsule as directed orally once a day , Taking Pantoprazole Sodium 40 MG Tablet Delayed Release 1 tab(s) orally once a day , Taking Vyvanse 60 MG Capsule , Taking tiZANidine HCl 2 MG Tablet 2 tab(s) orally every 8 hours , Taking busPIRone HCl 7.5 MG Tablet 1 tab(s) orally 2 times a day , Taking Escitalopram Oxalate 20 MG Tablet , Taking Auvi-Q 0.3 MG/0.3ML Solution Auto- injector as directed intramuscularly once , Taking SIT (TRADITIONAL) VARIABLE SEE RECORD PER SCHEDULE SC PER SCHEDULE , Notes to Pharmacist: *Please review for potential replacement for e-prescription and drug interaction check*, Taking Dulera 200-5 MCG/ACT Aerosol INHALE 2 PUFFS BY MOUTH TWICE DAILY , Taking Montelukast Sodium 10 MG Tablet 1 tab(s) orally once a day (in the evening) , Taking ZyrTEC Allergy 10 MG Tablet 1 tab(s) orally once a day , Taking NASAL WASHES N/A 1 QUART OF TAP WATER, 1 TSP NACL, 1 PINCH OF BAKING SODA DIRECTED INTRANASALLY NEEDED , Notes to Pharmacist: *Please review for potential replacement for e-prescription and drug interaction check*, Taking Fluticasone Propionate 50 MCG/ACT Suspension 2 spray(s) intranasally once a day , Taking Dulera 200-5 MCG/ACT Aerosol 2 puff(s) inhaled 2 times a day , Taking Ventolin HFA 108 (90 Base) MCG/ACT Aerosol Solution 2 puff(s) inhaled 4 times a day , Taking AEROCHAMBER MDI SPACER - MOUTHPIECE (ADULT) N/A SPACER FOR MDI USE DIRECTED PO PER ASTHMA ACTION PLAN , Notes to Pharmacist: *Please review for potential replacement for e-prescription and drug interaction check*, Taking Montelukast Sodium 10 MG Tablet 1 tab(s) orally once a day (in the evening) * Allergies: M inocin: rash - Allergy, Erythromycin: rash - Allergy, Rozerem: rash - Allergy. Objective: * Vitals: Assessment: Plan: * Treatment: * Billing Information: * Visit Code: * Procedure Codes: * Electronic signature of Melva RICHMOND-Migration on 04/20/2025 at 12:13 AM CDT Sign off status: Pending * Provider: Charly medrano Migration Date: 0 02/08/2024 Generated for Bijal chavarria/Suzy/Marychuy on: 04/20/2025 12:13 AM CDT
--- OUTSIDE RECORDS SUMMARY | 2024-09-17 08:00 | XMS_ITS ---
Author Organization [facility] Address [address] [facility] [address] [place] [address] Care Team Providers Care Senior Living Sales Counselor Name Role Phone Samantha Mcbride Primary Care Provider BROOKE Martin Unavailable [phone] REASON FOR VISIT Facial w/graciela for anti-aging coming with daughter Encounters Encounter Location Date Provider Diagnosis [facility] [address] [facility] [address] [place], [place] [id number] 09/17/2024 BROOKE MOSS Plan Of Treatment No Information Progress Notes * Loly PETERSON WDOB: [birth year] (50 yo F)Acc No.[id number]:09/17/2024 Progress Notes Patient: Loly TANG Provider: Richelle Moss MD :1975 A ge:49 Y S ex:Female Date:09/17/2024 Address:[address] [place], [place] [id number] Pcp:Samantha Mcbride Subjective: * Chief Complaints: * 1 . Facial w/graciela for anti-aging coming with daughter. * Medical History: Objective: * Vitals: Assessment: Plan: * Treatment: * * Electronic signature of ZITA MOSS MD on 04/20/2025 at 12:12 AM CDT Sign off status: Pending * Provider: Richelle Moss MD Date: 0 09/17/2024 Generated for Printi ng/Faxing/eTransmitting on: 0 04/20/2025 12:12 AM CDT
--- OUTSIDE RECORDS SUMMARY | 2024-10-19 13:00 | XMS_ITS ---
Author Organization [facility] Address [address] [address] Care Team Providers Care Primary Care Md Name Role Phone Samantha Mcbride Primary Care Provider BROOKE Martin Unavailable [phone] REASON FOR VISIT 1 month f/u Encounters Encounter Location Date Provider Diagnosis [address] [id number] 10/19/2024 BROOKE MOSS Plan Of Treatment No Information Progress Notes * Loly PETERSON WDOB: [birth year] (50 yo F)Acc No.[id number]:10/19/2024 Patient: Loly TANG Provider: Richelle Moss MD :1975 A ge:49 Y S ex:Female Date:10/19/2024 Address:[address] [place], [place] [id number] Pcp:Samantha Mcbride Subjective: * Chief Complaints: * 1 . 1 month f/u. * Medical History: Objective: * Vitals: Assessment: Plan: * Treatment: * * Electronic signature of ZITA MOSS MD on 04/20/2025 at 12:12 AM CDT Sign off status: Pending * Provider: Richelle Moss MD Date: 10/19/2024 Generated for Bijal ng/Fabelkysg/eTransmitting on: 0 04/20/2025 12:12 AM CDT
--- OUTSIDE RECORDS SUMMARY | 2024-11-05 09:30 | XMS_ITS ---
Author Organization [facility] Address [address] [place] [address] Care Team Providers Care Insole And Outsole Preparer Name Role Phone Samantha Mcbride Primary Care Provider REASON FOR VISIT 6 week f/u omer Encounters Encounter Location Date Provider Diagnosis [facility] - Samantha Mcbride [address] [place] [address] 11/05/2024 Samantha Mcbride Plan Of Treatment No Information Progress Notes * Loly PETERSONDOB:1975 (50 yo F)Acc No.[id number]:11/05/2024 Progress Notes Patient: Loly TANG Provider: Rosalind Mcbride MD :1975 A ge:49 Y S ex:Female Date:11/05/2024 Address:[address] [place] [address] Subjective: * Chief Complaints: * 1 . 6 week f/u omer. * Medical History: Objective: * Vitals: Assessment: Plan: * Treatment: * Billing Information: * Visit Code: * Procedure Codes: * Electronic signature of Cedrick Mcbride MD on 04/20/2025 at 12:12 AM CDT Sign off status: Pending * Provider: Rosalind Mcbride MD Date: 11/05/2024 Generated for Bijal chavarria/Suzy/eTransmitting on: 04/20/2025 12:12 AM CDT
--- OUTSIDE RECORDS SUMMARY | 2024-11-05 09:30 | XMS_ITS ---
Author Organization [facility] Address [address] [place], [place] [id number] Care Team Providers Care Parakeet Raiser Name Role Phone Samantha Mcbride Primary Care Provider REASON FOR VISIT f/u omer Encounters Encounter Location Date Provider Diagnosis [facility] [address] Mc[address]ide [address] [place] [address] 11/05/2024 Samantha Mcbride Plan Of Treatment No Information Progress Notes * YAKOVANDREWLolyDOB:1975 (50 yo F)Acc No.[id number]:11/05/2024 Progress Notes Patient: Loly Salgado Provider: Rosalind Mcbride MD :1975 A ge:49 Y S ex:Female Date:11/05/2024 Address:[address] [place], [place] [id number] Subjective: * Chief Complaints: * F /u omer * Electronic signature of Cedrick Mcbride MD on 04/20/2025 at 12:12 AM CDT Sign off status: Pending * Provider: Rosalind Mcbride MD Date: 11/05/2024 Generated for Manavi ng/Fabelkysg/eTransmitting on: 04/20/2025 12:12 AM CDT
[2025-01-06 14:09] VITALS: BMI 48.7
--- OUTSIDE RECORDS SUMMARY | 2025-01-14 02:18 | XMS_ITS | Data Portability ---
Author Organization [facility], [address] [place] [address] [place]rology ([place]) Address [address] [place] [id number] Assessment Encounter Date Assessment Date Assessment LastModified by Organization Details LastModified Time 03/09/2024 03/09/2024 Loly Is a 49-year-old woman with a very complicated health history 1. Multiple allergies to meds. i strongly encourage her to get medical alert bracelet for this. 2. lung nodule-- i will get her records and then follow up on ct lungs 3. anxiety, depression, ADHD-- she follows [facility] in [place] for medication management 4. OA and CRPS-- [...] this. she is on metoprolol. Cardiologis is [place]. 7. Gastric fistula managed with pantoprazole 40 mg twice daily. No labs today. Will review records and then make recomendations. Time 40 minutes [id number] Not available 03/09/2024 23:57:49 Plan of Treatment [...] Time Complex regional pain syndrome type I 261651522 Active 2023 Shawna Casey MD [address] [place] [address], [address] , [facility] 4 23:37:04 Tachycardia 8330219 Active 2023 Shawna Casey MD [address] [place] [address], [address] , [facility] 4 23:37:18 Intracranial meningioma 925248926 Active 2023 Shawna Casey MD [address] [place] [address], [address] , [facility] 4 23:37:30 Asthma 978791883 Active 2023 Shawna Casey MD [address] [place] [address], [address] , [facility] 4 23:37:39 Osteoarthriti s 741495356 Active 2023 Shawna Casey MD [address] [place] [address], [address] , [facility] 4 23:37:49 Attention deficit hyperactivity disorder, predominantly inattentive type 50213149 Active 2023 Shawna Casey MD [address] [place] [address], [address] , [facility] 4 23:37:57 Gastric fistula 451775143 Active 2023 Shawna Casey MD [address] [place] [address], [address] , [facility] 4 23:38:04 Thoracic outlet syndrome 219191939 Active 2023 Shawna Casey MD [address] [place] [address], [address] , [facility] 4 23:38:14 Anxiety 59309545 Active 2023 Shawna Casey MD [address] [place] [address], [address] , [facility] 4 23:38:22 Nodule of lung 685215075 Active 2023 Shawna Casey MD [address] [place] [address], [address] , [facility] 4 23:38:33 Dizziness 467897235 Active 2023 Shawna Casey MD [address] [place] [address], [address] , [facility] 4 23:38:41 Gastroesophag eal reflux disease 953115947 Active 2023 Shawna Casey MD [address] [place] [address], [address] , [facility] 4 23:38:49 Fibromyalgia 708338885 Active 2023 Shawna Casey MD [address] [place] [address], [address] , [facility] 4 23:39:06 Hypogammaglob ulinemia 726092590 Active 2023 Shawna Casey MD [address] [place] [address], [address] , [facility] 4 23:39:26 Problem Notes None recorded. Procedures Surgical History Date Name Laterality Status Provider Name and Address Organization Details Recorded Time Colonoscopy with biopsy completed Not Available Health Note 02/27/2024 12:00:33 Gastric Bypass completed Shawna Casey MD [address] [place] [address], [address], [facility] 03/09/2024 23:40:59 oophorectomy completed Shawna Casey MD [address] [place] [address], [address], [facility] 03/09/2024 23:41:12 Removal of fallopian tube completed Shawna Casey MD [address] [place] [address], [address], [facility] 03/09/2024 23:41:30 Imaging Results None recorded. Procedure Notes None recorded. Medical Equipment None Reported. Allergies Allergen ID Allergen Name Allergen Category Reaction Reaction Severity Criticality Documentation Date Start Date Code Code System Note Provider Name and Address Organization Details Recorded Time 0587044 minocycli ne medicatio n hives itching rash tachycard ia Not available Not available Not available Not available Not available 02/27/2024 6980 RxNorm Not Available Health Note 4 12:00:32 6164412 erythromy rachel medicatio n [place] hives itching palpitati ons rash tachycard ia Not available Not available Not available Not available Not available Not available Not available 02/27/2024 4053 RxNorm Not Available Health Note 4 12:00:32 8196432 adhesive environme nt,medica tion other rash Not available Not available Not available 02/27/2024 96735 UNK Not Available Health Note 4 12:00:32 0261266 amitripty line medicatio n eye redness other rash Not available Not available Not available Not available 02/27/2024 704 RxNorm Not Available Health Note 4 12:00:32 4783207 gabapenti n medicatio n confusion hallucina tions headache other Not available Not available Not available Not available Not available 02/27/2024 49856 RxNorm Not Available Health Note 4 12:00:32 8268236 ramelteon medicatio n itching other Not available Not available Not available 02/27/2024 53118 5 RxNorm Not Available Health Note 4 12:00:32 4092104 topiramat e medicatio n abdominal pain other Not available Not available Not available 02/27/2024 99643 RxNorm Not Available Health Note 4 12:00:32 4516019 metoprolo l Not available abdominal pain insomnia myalgias (muscle pain) nausea other Not available Not available Not available Not available Not available Not available 02/27/2024 6918 RxNorm Not Available Health Note 4 12:00:32 Medications Name Sig Start Date Stop Date [...] SURGERY AND ENDING 1 DAY BEFORE SURGERY 03/09 completed Not Available Not Available Not [...] Updated DateTime 4 176.53 cm 44.1 kg/m2 911911. 49 g 97.3 [degF] 99 % 99 % 90 /min 118 mm[Hg] 78 mm[Hg] Stacy Shaw [facility] 4 17:18:45 Social History Question Answer Notes LastModified by [employer] Details LastModified Time Do You Have An Advance Directive? No [email or web address] Information not available 02/27/2024 What Is Your Level Of Caffeine Consumption? Heavy [email or web address] Information not available 02/27/2024 How Many [...] Do You Have A Medical Power Of Outboard System Operator? No [email or web address] Information not available 02/27/2024 What Was The Date Of Your Most Recent Tobacco Screening? 02/26/2024 [email or web address] Information not available 02/27/2024 What Is Your Relationship Status? [email or web address] Information not available 02/27/2024 Sex: Unknown Functional Status Question Answer Note LastModified by Organizat ion Details LastModified Time How many times per week do you consume alcohol? Less than 1 time per week [email or web address] Information not available 02/27/2024 Do you use any illicit or recreational drugs? No [email or web address] Information not available 02/27/2024 What is your level of alcohol consumption? Occasional [email or web address] Information not available 02/27/2024 Are you currently employed? No [email or web address] Information not available 02/27/2024 What is your occupation? Homemaker [email or web address] Information not available 02/27/2024 What is your exercise level? Occasional [email or web address] [...] available 2023 12:00:31 Medical History Condition Response Anxiety Disorder Y Diabetes N Attention-deficit Hyperactivity Disorder Y Bleeding Disorder N High Blood Pressure N Arthritis Y Hyperlipidemia N Cancer N Stroke N Thyroid Problems N COPD N Asthma Y Depression Y Anemia Y Seizures N Heart Disease N Fibromyalgia Y Osteoporosis N Kidney Disease N Gynecological HistoryNo gynecological history recorded. Obstetrics History GPAL:G 0 P 0 0 0 0 Immunizations Vaccine Type Date Status Note Provider Nam e and Address Organization Details Recorded Time Influenza, recombinant, quadrivalent, PF 8 completed Stacy Shaw [facility] 03/09/2024 17:11:32 pneumococcal polysaccharide PPV23 8 completed Stacy Colin [place], [facility] 03/09/2024 17:11:32 Tdap 8 completed Stacy Colin [facility], [facility] 03/09/2024 17:11:32 Influenza, split virus, trivalent, preservative 6 completed Stacy Colin [facility], [facility] 03/09/2024 17:11:32 Past Encounters Encounter ID Performer Location Encounter Start Date Encounter Closed Date Diagnosis/Indication Diagnosis SNOMED-CT Code Diagnosis ICD10 Code Diagnosis Note [id number] Shawna Casey MD [facility] ([place]) [address] [address] [facility] [place] [address] 03/09/2024 16:55:52 03/11/2024 16:11:24 Nodule of lung 773348437 R91.1 Osteoarthritis 736504835 M19.90 Intracrani al meningioma 606435973 D32.0 Tachycardia 3163783 R00. 0 Gastric fistula 40239477 2 K31.6 Attention deficit hyperactivity disorder, predominantly inattentive type 04377211 F90.0 Health Concerns Section Related Observation LastModified by Organization Detai ls LastModified Time None Recorded Concern Status LastModified by Organization Details LastModified Time None Recorded Advance Directives Directive N: Payers Insurance Date Sequence Insurance Name Policy Number Policy Gallegos Covered Member ID Gallegos Member ID Guarantor Name 03/09/2024 1 *SELF PAY* Melinda Rios 03/11/2024 1 [place] [id number] Gianni Rios [id number] Loly Rios Notes Date Note Type Note Provider Name and Address Organization Details Recorded Time 4 text/html Loly Riosis a 49 year oldfemalepresenting for care. She is a new patient to the practice and here to establish care. She has a very complex health history. She has a meningioma in the left parietal area. She is followed by a neurosurgeon at [facility]. She does not have any symptoms. The surgeon wants to do surgery but she wants to wait. She sees a [facility] Anayeli Dinero who prescribes medication for her [...] She has tachycardia.She has been seeing a family readiness support assistant for this. Holter monitor showed a slightly [...] homemaker. 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 Shawna Casey MD [address] [facility], [place], [address], [facility] 03/09/2024 23:58:08 OBGyn Episode No OBEpisode recorded.
--- OUTSIDE RECORDS SUMMARY | 2025-01-14 02:18 | XMS_ITS ---
Author Organization [email or web address] Address [address] [place] [address] Care Team Providers Care Chief Of Police Name Role Phone Samantha Mcbride Primary Care Provider [phone] REASON FOR VISIT 6 week f/u omer Encounters Encounter Location Date Provider Diagnosis [employer] [facility], [facility] - Samantha Mcbride [address] [place] [address] 11/05/2024 Samantha Mcbride Plan Of Treatment No Information Progress Notes * Dejon PETERSONfiliDOB:1975 (50 yo F)Acc No.[id number]:11/05/2024 Progress Notes Patient: Loly TANG Provider: Rosalind Mcbride MD :1975 A ge:49 Y S ex:Female Date:11/05/2024 Address:[address] [place] [address] Subjective: * Chief Complaints: * 1 . 6 week f/u omer. * Medical History: Objective: * Vitals: Assessment: Plan: * Treatment: * Billing Information: * Visit Code: * Procedure Codes: * Electronic signature of Cedrick Mcbride MD on 01/14/2025 at 02:18 AM CDT Sign off status: Pending * Provider: Rosalind Mcbride MD Date: 11/05/2024 Generated for Bijal chavarria/Suzy/eTransmitting on: 01/14/2025 02:18 AM CDT
--- OUTSIDE RECORDS SUMMARY | 2025-01-14 02:18 | XMS_ITS ---
Author Organization [facility] Address [address] [address] Care Team Providers Care Vehicle Return Associate Name Role Phone Samantha Mcbride Primary Care Provider BROOKE Martin Unavailable [phone] REASON FOR VISIT 1 month f/u Encounters Encounter Location Date Provider Diagnosis [address] [id number] 10/19/2024 BROOKE MOSS Plan Of Treatment No Information Progress Notes * Dejon PETERSONna WDOB: 4 (50 yo F)Acc No.[id number]:10/19/2024 Patient: Loly TANG Provider: Richelle Moss MD :1975 A ge:49 Y S ex:Female Date:10/19/2024 Address:[address] [place], [place] [id number] Pcp:Samantha Mcbride Subjective: * Chief Complaints: * 1 . 1 month f/u. * Medical History: Objective: * Vitals: Assessment: Plan: * Treatment: * * Electronic signature of ZITA MOSS MD on 01/14/2025 at 02:17 AM CDT Sign off status: Pending * Provider: Richelle Moss MD Date: 10/19/2024 Generated for Bijal ng/Fabelkysg/eTransmitting on: 0 01/14/2025 02:17 AM CDT
--- OUTSIDE RECORDS SUMMARY | 2025-01-14 02:18 | XMS_ITS ---
Author Organization [facility] Address [address] [place] [address] Care Team Providers Care Medical Staff Physician Name Role Phone Samantha Mcbride Primary Care Provider REASON FOR VISIT follow up Encounters Encounter Location Date Provider Diagnosis [facility] - Samantha Mcbride [address] [place] [address] 09/15/2024 Samantha Mcbride Plan Of Treatment No Information Progress Notes * Loly PETERSONDOB:1975 (50 yo F)Acc No.[id number]:09/15/2024 Progress Notes Patient: Loly TANG Provider: Rosalind Mcbride MD :1975 A ge:49 Y S ex:Female Date:09/15/2024 Address:[address] [place], [place] [id number] Subjective: * Chief Complaints: * 1 . [...] & Time - 09/02/2024 08:10 AM)?ValueReference Range?DHEA [id number] - mcg/dL ???Lab:LIPID PANEL (Order Date 09/02/2024) (Collection Date & Time - 09/02/2024 08:10 AM)?ValueReference Range?ILKPCWBAGGFYK162K<150 - mg/dL?CHOLESTEROL, QOXER487J<200 - mg/dL?HDL DAYWWSBWZGM72> OR = 50 - mg/dL?LDL-LOVITRWNLIG385G- mg/dL (calc)?CHOL/HDLC RATIO3.8 <5.0 - (calc)?NON-HDL XKPYYQNKYCU546C<130 - mg/dL (calc) ???Lab:HEMOGLOBIN A1c (Order Date - 09/02/2024) (Collection Date & Time - 09/02/2024 08:10 AM)?ValueReference Range?HEMOGLOBIN A1c5.5<5.7 - % of total Hgb ???Lab:COMPREHENSIVE METABOLIC PANEL (Order Date 09/02/2024) (Collection Date & Time - 09/02/2024 08:10 AM)?ValueReference Range?DEWPPDQ158H55- 99 - mg/dL?UREA NITROGEN (BUN)117-25 - mg/dL?CREATININE0.970.50- 1.03 - mg/dL?BUN/CREATININE RATIOSEE NOTE:6-22 - (calc)?EUTTFT259 135-146 - mmol/L?POTASSIUM4.53.5-5.3 - mmol/L?FKWDTEMX38688-656 - mmol/L?CARBON OHPKFSW8918-41 - mmol/L?CALCIUM9.38.6-10.4 - mg/dL ?PROTEIN, TOTAL6.36.1-8.1 - g/dL?ALBUMIN4.13.6-5.1 - g/dL ?GLOBULIN2.21.9-3.7 - g/dL (calc)?ALBUMIN/GLOBULIN RATIO1.91.0-2.5 - (calc)?BILIRUBIN, TOTAL0.40.2-1.2 - mg/dL?ALKALINE ZQELWMGWIZK57 37-153 - U/L?QCR4369-75 - U/L?QGY844-94 - U/L?EGFR71> OR = 60 - mL/min/1.73m2 * Lab:T4, FREE * Collection Date 09/02/2024 06/30/2024 Collection Time 08:10 AM 08:18 AM Order Date 09/02/2024 06/30/2024 T4, FREE 1.1 (Ref Range: 0.8-1.8 ng/dL) 1.0 (Ref Range: 0.8-1.8 ng/dL) ???Lab:ACTH, PLASMA (Order Date - 09/02/2024) (Collection Date & Time - 09/02/2024 08:10 AM)?ValueReference Range?ACTH, EUAEPB180-69 - pg/mL Assessment: Plan: * Treatment: * Billing Information: * Visit Code: * Procedure Codes: * Electronic signature of Cedrick Mcbride MD on 01/14/2025 at 02:17 AM CDT Sign off status: Pending * Provider: Rosalind Mcbride MD Date: 0 09/15/2024 Generated for Bijal chavarria/Suzy/Adelinasmlynne on: 0 01/14/2025 02:17 AM CDT History and Physical Notes * HPI [...]
--- OUTSIDE RECORDS SUMMARY | 2025-01-14 02:18 | XMS_ITS | Clinical Summary ---
Author Organization [facility] Address [address] [place] [address] Care Team Providers Care Catalyst Operator Name Role Phone Dilcia Ivan MD Primary [...] to Assessment & Plan (07/31/2024 5:03 PM CATALYST OPERATOR): Reviewed working on a heart healthy diet [...] 09/25/2022 Assessment & Plan (09/25/2022 11:14 AM CATALYST OPERATOR): Chronic nausea and vomiting. Labs including LFTs [...] 09/25/2022 Assessment & Plan (09/25/2022 11:14 AM CATALYST OPERATOR): Last colonoscopy August [address] Yovani Reaves with 2 tubular adenomas and 3 hyperplastic polyps. -repeat colonoscopy August 2026 Gastroesophageal reflux disease without esophagi tis 09/25/2022 Assessment & Plan (09/25/2022 11:15 AM CATALYST OPERATOR): Chronic GERD, taking pantoprazole b.i.d.. -continue PPI [...] 07/04/2022 Assessment & Plan (07/04/2022 2:07 PM CATALYST OPERATOR): Ordered 24 hour Holter monitor today. Referral for Cardiology placed. She will follow up as needed after she sees Cardiology. Lung nodule 07/04/2022 Assessment & Plan (07/04/2022 2:08 PM CATALYST OPERATOR): Discussed with patient that the radiologist recommended [address] follow-up if she had risk factors for lung cancer. She reports her grandfather of lung cancer. She does not personally have smoking, secondhand smoke asbestos or Radon exposure. She would like to have a repeat scan in 1 year. Dizziness 07/04/2022 Assessment & Plan (07/04/2022 2:07 PM CATALYST OPERATOR): Patient instructed to change positions slowly in [...] 10/18/2021 Assessment & Plan (10/18/2021 2:53 PM CATALYST OPERATOR): Due to the snoring and hypersomnia, I [...] 06/14/2021 Assessment & Plan (07/31/2024 3:11 PM CATALYST OPERATOR): Chronic, slight progression Continue zepbound BMI Follow-up includes: nutrition counseling. Assessment & Plan (04/09/2024 12:11 PM CDT): Chronic, worse BMI Follow-up includes: Continue working on healthy lifestyle changes. Labs ordered for further guidance . Assessment & Plan (07/26/2023 4:24 PM CATALYST OPERATOR): Chronic, slightly worse Appetite currently diminished with [...] concerns Assessment & Plan (09/25/2022 11:14 AM CATALYST OPERATOR): History of gastric bypass in 1996. Diagnosed with gastric fistula in [id number] on EGD. Referred to bariatric surgery who recommended medical management. -obtain prior GI records Complex regional pain syndrome i of right upper limb 01/15/2017 Assessment & Plan (07/13/2021 3:01 PM CATALYST OPERATOR): With acute flare of her pain Continue [...] current regimen Continue to follow with her head filter tank tender helper Chronic pain 04/06/2016 Assessment & Plan (06/14/2021 2:57 PM CDT): Stable, though does need norco rarely She has been working on healthy changes to support her symptoms Continue supportive care Consider referral to pain management Call for questions or concerns Arthritis 04/06/2016 Reflex sympathetic dystrophy 04/06/2016 Assessment & Plan (07/13/2021 3:02 PM CATALYST OPERATOR): With an acute flare Continue hydrocodone as [...] at 20 mg - continue Mucinex and nmow-kgu-bnfsvnq Robitussin - if cough is still bothersome at night, please contact us and may consider cough syrup with codeine Functional dyspepsia 10/04/2022 024 Depressive disorder 07/31/2022 07/31/20 24 Anxiety 07/31/2022 07/31/2024 Meningioma 12/05/2021 07/31/2024 Mild persistent asthma, well controlled 09/17/2016 06/14/2021 Pain in extremity 04/16/2013 07/31/2024 Encounters Date Type Department Care Team Description 12/30/2024 Letter (Out) [facility] Medical [facility] Family Medicine [address] [place] [phone] 12/30/2024 Patient Message [facility] Family Medicine [address] [place] [phone] Dilcia Ivan MD Rheumatology 12/16/2024 Letter (Out) [facility] Family Medicine [address] [place] [phone] 12/07/2024 5:33 PM CDT - 12/07/2024 11:59 PM CDT Hospital Encounter [facility] - Imaging [address] [place] [address] Disorder of adrenal gland, unspecified Discharge Disposition: Discharge to home or self care from Last 3 Months Immunizations Immunization Administration [...] Comments VA EXC CYST/ABERRANT BREAST TISSUE OPEN LESION Breast Surgery Lumpectomy - (Added by [...] Nicole Heart disease Mother Nicole Hypertension Mother Nicoel Family history of hypertension - (Added by TW Conv) Lung cancer Mother Nicole Obesity Mother Nicole Valvular heart disease Mother Nicole Breast cancer Mother's Sister Cancer Mother's Sister [...] on file Legal Sex Female 1:54 AM CATALYST OPERATOR Gender Identity Female 10/25/2021 3:40 PM CATALYST OPERATOR Sexual Orientation Straight 10/25/2021 3: 40 PM CATALYST OPERATOR Obstetrics History Para Term AB IAB SAB Ectopic Multiple Livin g Live Births 3 3 3 3 3 Date Outcome GA Total Labor Labor/2nd/3rd Weight Sex Type Anes PTL Riddhi A1 A5 Name Clin Term Living Term Living Term Living Last Filed Vital Signs Vital Sign Reading Time Taken Comments Blood Pressure 126/84 07/31/2024 2:47 PM CATALYST OPERATOR Pulse 80 07/31/2024 2:47 PM CATALYST OPERATOR Temperature 36 C (96.8 F) 07/31/2024 2:47 PM CATALYST OPERATOR Respiratory Rate 12 07/31/2024 2:47 PM CATALYST OPERATOR Oxygen Saturation 96% 07/31/2024 2:47 PM CATALYST OPERATOR Inhaled Oxygen Concentration - - Weight 147.2 kg (324 lb 9.6 oz) 07/31/2024 2:47 PM CATALYST OPERATOR Height 174 cm (5' 8.5) 07/31/2024 2:47 PM CATALYST OPERATOR Body Mass Index 48.64 07/31/2024 2:47 PM CATALYST OPERATOR Plan of Treatment Health Maintenance Due Date [...] HEPATITIS C ANTIBODY Routine 09/02/2024 9:37 AM CATALYST OPERATOR Need for hepatitis C screening test SCREENING MAMMOGRAM BILATERAL W LAW Schedule Routine, Read Routine (OP Routine) 08/21/2022 3:24 PM CATALYST OPERATOR Screening mammogram, encounter for COLONOSCOPY Routine 09/12/2021 [...] by: Franklin Murrieta M.D. Samantha Mcbride MD IM CT PROCEDURES Final R esult * Hepatitis C antibody Blood (09/02/2024 9:37 AM CATALYST OPERATOR) Hep C Ab Nonreactive Nonreactive Comment: Antibodies [...] revised on 2019. Blood 09/02/2024 9:37 AM CATALYST OPERATOR 09/02/2024 1:07 PM CATALYST OPERATOR us Dilcia Ivan MD LAB MICROBIOLOGY - GENERAL ORDERABLES Final Result [facility] [address] [facility] [place] [address] * Screening Mammogram Bilateral W Law (08/21/2022 3:24 PM CATALYST OPERATOR) Anatomical Region Laterality Modality Breast Bilateral Mammography Impressions 08/24/2022 1:45 PM CATALYST OPERATOR BI-RADS ATLAS category (overall): 1 - Negative There is no mammographic evidence of malignancy. A 1 year screening mammogram is recommended. The patient has been or will be contacted. We recommend annual screening mammography for women at average risk of breast cancer beginning at age 40, based on guidelines of the [place] [employer] (ACR Practice Parameter for the Performance of Screening and Diagnostic Mammography) and [place] [employer]. For women with and elevated risk of breast cancer, please refer to the ACR Practice Parameter for specific screening recommendations. The patient will be entered into a reminder system with a target due date of 1 year for her next screening exam. Narrative 08/24/2022 1:45 PM CATALYST OPERATOR Screening Mammogram Bilateral W Law: 08/21/22 The [...] Most Recently Relevant to Health Maintenance Insurance COUNT INCLUDES THE [facility] [address] [employer] [place] [employer] [place] Care Teams Catalyst Operator Relationship Specialty Start Date End Date Dilcia Ivan MD [address] [place], [place] [phone] PCP - General Family Medicine 06/14/21
--- OUTSIDE RECORDS SUMMARY | 2025-01-14 02:18 | XMS_ITS | Encounter Summary ---
Author Organization [facility] Address [address] [place] [address] Phone Care Team Providers Care Staff Training And Development Manager Name Role Phone Kishan Sweeney MD Primary Care Provider [phone] Dilcia Ivan MD Primary Care Provi beronica Skylar Huffman RN Unavailable [phone] Encounter Details Date Type Department Care Team (Latest Contact Info) Description 06/27/2017 Orders Only [facility] CONVERSION Scanning, Provider Social History Tobacco Use Types Packs/Day Years Used Date Smoking Tobacco: Former Comments Unknown Sex and Gender Information Value Date Recorded Sex Assigned at Not on file Legal Sex Female 1:54 AM LENS GRINDING MACHINE OPERATOR Gender Identity Female 10/25/2021 3:40 PM LENS GRINDING MACHINE OPERATOR Sexual Orientation Straight 10/25/2021 3: 40 PM LENS GRINDING MACHINE OPERATOR documented as of this encounter Plan of [...] documented as of this encounter Care Teams Staff Training And Development Manager Relationship Specialty Start Date End Date Kishan Sweeney MD [address] [place] [address] PCP - General 06/26/17 06/13/21 Dilcia Ivan MD [address] [place] [address] PCP - General Family Medicine 06/14/21 Skylar Huffman, RN [address] [place] [address] Nurse Navigator 03/01/23 07/29/23 documented as of this encounter
--- OUTSIDE RECORDS SUMMARY | 2025-01-14 02:18 | XMS_ITS | Referral Summary ---
Author Organization [facility] Address [address] [place] [address] Care Team Providers Care Underground Mine Superintendent Name Role Phone Dilcia Ivan MD Primary Care Provi beronica Encounters Date Type Department Care Team Description 12/30/2024 Letter (Out) [facility] Family Medicine [address] [place] [phone] 12/30/2024 Patient Message [facility] Family Medicine [address] [place] [phone] Dilcia Ivan MD Rheumatology 12/16/2024 Letter (Out) [facility] Family Medicine [address] [place] [phone] 12/07/2024 5:33 PM CDT - 12/07/2024 11:59 PM CDT Hospital Encounter [facility] - Imaging [address] [place] [address] Disorder of adrenal gland, unspecified Discharge Disposition: Discharge to home or self care from Last 3 Months Allergies Active Allergy [...] to Assessment & Plan (07/31/2024 5:03 PM SAFETY PERSON): Reviewed working on a heart healthy diet [...] 09/25/2022 Assessment & Plan (09/25/2022 11:14 AM SAFETY PERSON): Chronic nausea and vomiting. Labs including LFTs [...] 09/25/2022 Assessment & Plan (09/25/2022 11:14 AM SAFETY PERSON): Last colonoscopy August [address] Yovani Reaves with 2 tubular adenomas and 3 hyperplastic polyps. -repeat colonoscopy August 2026 Gastroesophageal reflux disease without esophagi tis 09/25/2022 Assessment & Plan (09/25/2022 11:15 AM SAFETY PERSON): Chronic GERD, taking pantoprazole b.i.d.. -continue PPI [...] 07/04/2022 Assessment & Plan (07/04/2022 2:07 PM SAFETY PERSON): Ordered 24 hour Holter monitor today. Referral for Cardiology placed. She will follow up as needed after she sees Cardiology. Lung nodule 07/04/2022 Assessment & Plan (07/04/2022 2:08 PM SAFETY PERSON): Discussed with patient that the radiologist recommended [address] follow-up if she had risk factors for lung cancer. She reports her grandfather of lung cancer. She does not personally have smoking, secondhand smoke asbestos or Radon exposure. She would like to have a repeat scan in 1 year. Dizziness 07/04/2022 Assessment & Plan (07/04/2022 2:07 PM SAFETY PERSON): Patient instructed to change positions slowly in [...] 10/18/2021 Assessment & Plan (10/18/2021 2:53 PM SAFETY PERSON): Due to the snoring and hypersomnia, I [...] 06/14/2021 Assessment & Plan (07/31/2024 3:11 PM SAFETY PERSON): Chronic, slight progression Continue zepbound BMI Follow-up includes: nutrition counseling. Assessment & Plan (04/09/2024 12:11 PM CDT): Chronic, worse BMI Follow-up includes: Continue working on healthy lifestyle changes. Labs ordered for further guidance . Assessment & Plan (07/26/2023 4:24 PM SAFETY PERSON): Chronic, slightly worse Appetite currently diminished with [...] PM CDT): Continue to follow with mackenzie INGRAM (attention deficit disorder) 05/12/2017 Assessment & Plan (06/14/2021 5:38 PM CDT): Continue jacque Continue to follow with her psychiatrist Update [...] concerns Assessment & Plan (09/25/2022 11:14 AM SAFETY PERSON): History of gastric bypass in 1996. Diagnosed with gastric fistula in [id number] on EGD. Referred to bariatric surgery who recommended medical management. -obtain prior GI records Complex regional pain syndrome i of right upper limb 01/15/2017 Assessment & Plan (07/13/2021 3:01 PM SAFETY PERSON): With acute flare of her pain Continue [...] current regimen Continue to follow with her development advisor Chronic pain 04/06/2016 Assessment & Plan (06/14/2021 2:57 PM CDT): Stable, though does need norco rarely She has been working on healthy changes to support her symptoms Continue supportive care Consider referral to pain management Call for questions or concerns Arthritis 04/06/2016 Reflex sympathetic dystrophy 04/06/2016 Assessment & Plan (07/13/2021 3:02 PM SAFETY PERSON): With an acute flare Continue hydrocodone as [...] Assessment & Plan (06/14/2021 3:03 PM CDT): Naseem, though does need norco rarely She has [...] at 20 mg - continue Mucinex and jhzb-bbq-fyqjswr Robitussin - if cough is still bothersome [...] on file Legal Sex Female 1:54 AM SAFETY PERSON Gender Identity Female 10/25/2021 3:40 PM SAFETY PERSON Sexual Orientation Straight 10/25/2021 3: 40 PM SAFETY PERSON Last Filed Vital Signs Vital Sign Reading Time Taken Comments Blood Pressure 126/84 07/31/2024 2:47 PM SAFETY PERSON Pulse 80 07/31/2024 2:47 PM SAFETY PERSON Temperature 36 C (96.8 F) 07/31/2024 2:47 PM SAFETY PERSON Respiratory Rate 12 07/31/2024 2:47 PM SAFETY PERSON Oxygen Saturation 96% 07/31/2024 2:47 PM SAFETY PERSON Inhaled Oxygen Concentration - - Weight 147.2 kg (324 lb 9.6 oz) 07/31/2024 2:47 PM SAFETY PERSON Height 174 cm (5' 8.5) 07/31/2024 2:47 PM SAFETY PERSON Body Mass Index 48.64 07/31/2024 2:47 PM SAFETY PERSON Plan of Treatment Not on file Procedures Procedure Name Priority Date/Time Associated Diagnosis Comments CT ABDOMEN WO CONTRAST Schedule Routine, Read Routine (OP Routine) 12/07/2024 5:51 PM CDT Disorder of adrenal gland, unspecified HEPATITIS C ANTIBODY Routine 09/02/2024 9:37 AM SAFETY PERSON Need for hepatitis C screening test SCREENING MAMMOGRAM BILATERAL W LAW Schedule Routine, Read Routine (OP Routine) 08/21/2022 3:24 PM SAFETY PERSON Screening mammogram, encounter for COLONOSCOPY Routine 09/12/2021 [...] Hepatitis C antibody Blood (09/02/2024 9:37 AM SAFETY PERSON) Hep C Ab Nonreactive Nonreactive Comment: Antibodies [...] revised on 2019. Blood 09/02/2024 9:37 AM SAFETY PERSON 09/02/2024 1:07 PM SAFETY PERSON us Dilcia Ivan MD LAB MICROBIOLOGY - GENERAL ORDERABLES Final Result [facility] [address] [facility] Department [place] [address] * Screening Mammogram Bilateral W Law (08/21/2022 3:24 PM SAFETY PERSON) Anatomical Region Laterality Modality Breast Bilateral Mammography Impressions 08/24/2022 1:45 PM SAFETY PERSON BI-RADS ATLAS category (overall): 1 - Negative There is no mammographic evidence of malignancy. A 1 year screening mammogram is recommended. The patient has been or will be contacted. We recommend annual screening mammography for women at average risk of breast cancer beginning at age 40, based on guidelines of the [place] [employer] (ACR Practice Parameter for the Performance of Screening and Diagnostic Mammography) and [place] [employer]. For women with and elevated risk of breast cancer, please refer to the ACR Practice Parameter for specific screening recommendations. The patient will be entered into a reminder system with a target due date of 1 year for her next screening exam. Narrative 08/24/2022 1:45 PM SAFETY PERSON Screening Mammogram Bilateral W Law: 08/21/22 The [...] * HM PAP SMEAR WITH HPV (08/17/2020) us Historical Provider MD HEALTH MAINTENANCE Final Result from Last 3 Months or Most Recently Relevant to Health Maintenance [place] [employer] [place] [employer] [place] Sub[place] Plan / Payer ( fective 2021-Present) Name:Loly Peterson Relation to Subscriber:Spouse Name:BOBBY PETERSON Date of :1969 (Home) Address: [address] [place] [address] Payer ID:[id number] (NAIC) Type: OTHER Address: [place] [id number] [facility] Care Teams Underground Mine Superintendent Relationship Specialty Start Date End Date Dilcia Ivan MD [facility] [address] [place] [address] PCP - General Family Medicine 06/14/21
--- OUTSIDE RECORDS SUMMARY | 2025-01-14 02:19 | XMS_ITS ---
Author Organization [facility] Address [address] [address] Care Team Providers Care Condenser Operator Name Role Phone Samantha Mcbride Primary Care Provider Allergies Allergen (clinical drug ingredient) Drug/Non Drug Allergy documented on EMR Reaction Allergy Type Onset Date Status erythromycin Erythromycin Unknown Drug Allergy A ctive amitriptyline Amitriptyline HCl Unknown Drug Allergy Active acetaminophen Acetaminophen Unknown Drug Allergy Active oxycodone oxyCODONE Unknown Drug Allergy Active minocycline Minocycline Unknown Drug Allergy Act mohamud topiramate Topiramate Unknown Drug Allergy Activ e ramelteon Ramelteon Unknown Drug Allergy Active prochlorperazine Prochlorperazine Unknown Drug Allergy Active gabapentin Gabapentin Unknown Drug Allergy Activ e REASON FOR VISIT lab f/u omer Medications Medication SIG (Take, Route, Frequency, Duration) Notes Start Date End Date Status Zepbound 5 MG/0.5ML inject 5 mg Subcutan eous once weekly for 28 days 07/16/2024 Unknown Furosemide 20 MG for 90 Days A ctive Metoprolol Succinate ER 50 MG for 90 Days Unknown Vraylar 1.5 MG TAKE 1 CAPSULE BY [facility] DAILY for 90 Days Active busPIRone HCl 7.5 MG 1 tab(s) orally 2 t imes a day for 30 days 04/21/2024 Active Dilt-XR 120 MG for 90 Days Unk nown clonazePAM 1 MG TAKE 1 [facility] 3 TIMES NEEDED DAILY for 30 [...] 04/21/2024 Unknown Vitamin D (Ergocalciferol) 1.25 MG (17405 UT) 1 cap(s) orally once a week for 90 days 04/21/2024 Unknown Zepbound 2.5 MG/0.5ML inject 2.5 mg Subcutaneous once weekly for 30 days 07/16/2024 Not-Taking Escitalopram Oxalate 10 MG 1 tab(s) orally once a day for 30 days 04/21/2024 Not-Taking Problems Problem Type SNOMED Code ICD Code Onset Dates Problem Status W/U Status Risk Notes Problem Disorder of adrenal gland (63570918) Disorder of adrenal gland, 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 Problem Insomnia (496195831) Insomnia due to medical condition (G47.01) Active confirmed Problem Generalized anxiety disorder (63840161) Generalized anxiety disorder (F41.1) Active confirmed Vital Signs Blood pressure systolic 129 mm Hg 09/25/19 25 Blood pressure diastolic 82 mm Hg 025 Heart Rate 94 /min 09/25/2024 Height 68 in 09/25/2024 Weight 334 lbs 09/25/2024 BMI 50.78 kg/m2 09/25/2024 Encounters Encounter Location Date Provider Diagnosis [facility] - Samantha Mcbride [address] [place] [address] 09/25/2024 Samantha Mcbride Obesity, unspecified E66.9 ; [...] Z71.3) 09/25/2024 Other Assessment and Plan: Suspected Elk Point's SyndromePatient exhibits symptoms indicative of Elk Point's syndrome: weight gain, fatigue, bruising, and mood [...] Monitor lipid levels. Reassess after completing the Elk Point's workup and potential treatment. Impaired Fasting GlucoseRecent [...] procedures, referring and communicating with other health child care, documenting clinical information in the electronic or [...] Assessment Notes Other Assessment and Plan: Suspected [place] Point's SyndromePatient exhibits symptoms indicative of Adilene's syndrome: [...] procedures, referring and communicating with other health child care, documenting clinical information in the electronic or [...] Notes * Loly PETERSONDOB:1975 (49 yo F)Acc No.[id number]:09/25/2024 Progress Notes Patient: Loly TANG Provider: Rosalind Mcbride MD :1975 A ge:49 Y S ex:Female Date:09/25/2024 Address:[address] [place] [address] Subjective: * Chief Complaints: * 1 . [...] to pursue a full Adilene's workup, including 24- hour urine and salivary cortisol tests, and seek approval for an adrenal CT scan. Loly's lipid panel shows elevated cholesterol and triglycerides, and her fasting glucose is slightly elevated. She continues on metformin, Zepbound, and cannabis for pain management. The patient reports ongoing concerns about potential Elk Point's syndrome. She underwent lab tests on September [...] complicating biopsy attempts. 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 O thers Notes:Assessment and Plan: Suspected Adilene's SyndromePatient exhibits symptoms indicative of Elk Point's syndrome: weight gain, fatigue, bruising, and mood [...] procedures, referring and communicating with other health child care, documenting clinical information in the electronic or other health record, independently interpreting results and communicating results to the patient/family/caregiver and care coordinating patient plan. Patient alert and oriented x 4 and aware of discussion noted above and in agreeance to plan in management of obesity/weight management, prediabetes, anxiety/insomnia, fatigue and concern for hypercortisolism. * Procedure Codes: 9 9401 P/M RAIL CREW MEMBER, INDIV 15 MIN * Follow Up: 2 Months (Reason: labwork) * Billing Information: * Visit Code: 05911 Office Visit, Est Pt., Level 4. * Procedure Codes: 16537 P/M RAIL CREW MEMBER, INDIV 15 MIN. * HAND OYSTER DREDGE Sign off status: Completed true * Provider: Rosalind Mcbride MD Date: 09/25/2024 Generated for Bijal chavarria/Suzy/eThopeitting on: 01/14/2025 02:18 AM CDT History and Physical Notes * [...] thyroid. Loly reports ongoing concerns about potential Elk Point's syndrome, with symptoms including fatigue, bruising, and mood disturbances. Previous lab work showed ACTH in the hensley zone and low DHEAS, but a dexamethasone suppression test failed due to a lab error. The clinician plans to pursue a full Elk Point's workup, including 24-hour urine and salivary cortisol [...] complicating biopsy attempts. Medical History - Possible Elk Point's syndrome (under investigation) - Hyperlipidemia - Anxiety [...]
--- OUTSIDE RECORDS SUMMARY | 2025-01-14 02:19 | XMS_ITS ---
Author Organization [facility] [place] ([address]) Address [address] [place] [address] Care Team Providers Care Protective Service Specialist Name Role Phone Kishan Sweeney Primary Care Provider Unavailab Ivis Davila Unavailable [phone] Abdelrahman Riley Unavailable [phone] ZZ-Migration, Provider Unavailable Unavailab le Allergies Allergen (clinical drug ingredient) Drug/Non Drug Allergy documented on EMR Reaction Allergy Type Onset Date Status erythromycin Erythromycin rash Drug Allergy A ctive minocycline Minocin rash Drug Allergy Activ e ramelteon Rozerem rash Drug Allergy Active [facility] Encounter Medications Medication SIG (Take, Route, [...] Encounter Location Date Provider Diagnosis [facility] [place] [place] [address] 02/08/2024 Provider ZZ-Migration Plan Of Treatment No Information Progress Notes * Loly PETERSONDOB:1975 (50 yo F)Acc No.[id number]:02/08/2024 Patient: Vivian BHARGAVI Loly Provider: Charly medrano Migration :1975 A ge:49 Y S ex:Female Date:02/08/2024 Address:[address] [place] [address] [place], [facility] Pcp:Kishan Sweeney Subjective: * Chief Complaints: * [...] * Electronic signature of Melva RICHMOND-Migration on 01/14/2025 at 02:19 AM CDT Sign off status: Pending * Provider: Charly medrano Migration Date: 02/08/2024 Generated for Bijal chavarria/Suzy/Marychuy on: 01/14/2025 02:19 AM CDT
--- OUTSIDE RECORDS SUMMARY | 2025-01-14 02:19 | XMS_ITS ---
Author Organization [facility] Address [address] [facility] [address] [place] [address] Care Team Providers Care Banquet Cook Name Role Phone Samantha Mcbride Primary Care Provider BROOKE Martin Unavailable [phone] REASON FOR VISIT Facial w/graciela for anti-aging coming with daughter Encounters Encounter Location Date Provider Diagnosis [facility] [address] [facility] [address] [place], [place] [id number] 09/17/2024 BROOKE MOSS Plan Of Treatment No Information Progress Notes * Loly PETERSON WDOB: [birth year] (50 yo F)Acc No.[id number]:09/17/2024 Progress Notes Patient: Loly TANG Provider: Richelle Moss MD :1975 A ge:49 Y S ex:Female Date:09/17/2024 Address:[address] [place], [place] [address] Pcp:Samantha Mcbride Subjective: * Chief Complaints: * 1 . Facial w/graciela for anti-aging coming with daughter. * Medical History: Objective: * Vitals: Assessment: Plan: * Treatment: * * Electronic signature of ZITA MOSS MD on 01/14/2025 at 02:18 AM CDT Sign off status: Pending * Provider: Richelle Moss MD Date: 0 09/17/2024 Generated for Printi ng/Faxing/eTransmitting on: 0 01/14/2025 02:18 AM CDT
--- OUTSIDE RECORDS SUMMARY | 2025-01-14 02:19 | XMS_ITS | Clinical Summary ---
Author Organization [facility] [address] Address [address] [place] [address] Care Team Providers Care Shredding Machine Tender Name Role Phone Dilcia Ivan MD Primary Care Provider [phone] Source Comments [facility],non-owned Affiliates and Associated Physician Practices is amultiple site organization consisting of ambulatory clinics and hospital sitesin [place], [place], [place] and [place]. This disclosure is being madepursuant to the Care Everywhere program and may not contain all information available regarding this patient. Last updated 18.[facility] [address] Allergies Active Allergy Reactions Criticality Noted Date Comments Erythromycin Itching Low 11/04/2014 Minocycline Itching Low 11/04/2014 Medications * Be aware that medications may not be up to date on this document. Alwaysverify current medications with the patient. Multiple Minerals-Vitami ns (CALCIUM YISSRUI-MPZ-TXG ERALS PO) Active CANNABIDIOL PO Activ e [...] THE EVENING WITH FOOD 07/13/2020 Active Evening [place] Oil 1000 MG Take 1,000 mg by [...] on file Legal Sex Female 6:19 PM TRACK PRODUCTION ENGINEER Gender Identity Not on file Sexual Orientation Not on file Last Filed Vital Signs Vital Sign Reading Time Taken Comments Blood Pressure 132/80 07/12/2021 1:40 PM TRACK PRODUCTION ENGINEER Pulse 86 07/12/2021 1:40 PM TRACK PRODUCTION ENGINEER Temperature 36.3 C (97.4 F) 07/12/2021 1:40 PM TRACK PRODUCTION ENGINEER Respiratory Rate 12 12/01/2014 1:11 PM CDT Oxygen Saturation - - Inhaled Oxygen Concentration - - Weight 125.6 kg (277 lb) 07/12/2021 1:40 PM TRACK PRODUCTION ENGINEER Height 172.7 cm (5' 8) 07/12/2021 1:40 PM TRACK PRODUCTION ENGINEER Body Mass Index 42.12 07/12/2021 1:40 PM TRACK PRODUCTION ENGINEER Plan of Treatment Health Maintenance Due Date [...] COMPREHENSIVE METABOLIC PANEL Routine 07/19/2021 2:03 PM TRACK PRODUCTION ENGINEER Polyarteritis Vitamin D deficiency HEPATITIS SCREEN ACUTE Routine 2:03 PM TRACK PRODUCTION ENGINEER Polyarteritis Vitamin D deficiency from Last 3 Months or Most Recently Relevant to Health Maintenance Results * COMPREHENSIVE METABOLIC PANEL (07/19/2021 2:03 PM TRACK PRODUCTION ENGINEER) Pathologist [facility] Glucose 96 65 - 139 mg/dL [facility] [...] 29 U/L [facility] Comment: Test Performed at: [facility] [address] [place] [address] TOVA GANDHI DO,MPH Blood BLOOD SPECIMEN / Unknown 07/19/2021 2:03 PM TRACK PRODUCTION ENGINEER 07/19/2021 2:04 PM TRACK PRODUCTION ENGINEER Stella Cruz MD LAB - CHEMISTRY ORDERABLES Mary l Result Performing Organization Address City/State/[facility] Co de Phone Number [employer] [address] [place] [address] * HEPATITIS SCREEN ACUTE (07/19/2021 2:03 PM TRACK PRODUCTION ENGINEER) Hepatitis A Virus Antibody IgM NON-REACTI VE NON-REACT [facility] Comment: For additional information, please refer to http://[employer]/faq/EOP187 (This link is being provided for informational/ [...] a test for HCV RNA (test code 07624) is suggested. For additional information please refer to http://[employer]/faq/PTR08i3 (This link is being provided for informational/ educational purposes only.) Test Performed at: [facility] [address] [place] [address] TOVA GANDHI DO,MPH Blood BLOOD SPECIMEN / Unknown 07/19/2021 2:03 PM TRACK PRODUCTION ENGINEER 07/19/2021 2:04 PM TRACK PRODUCTION ENGINEER us Stella Cruz MD LAB - CHEMISTRY ORDERABLES Mary espinoza Result [facility] [address] [place] [address] from Last 3 Months or Most Recently Relevant to Health Maintenance Insurance [facility] Care Teams Shredding Machine Tender Relationship Specialty Start Date End Date Dilcia Ivan MD PCP - General Family Medicine 07/12/21
--- OUTSIDE RECORDS SUMMARY | 2025-01-14 02:19 | XMS_ITS | Patient Health Record ---
Author Organization [facility] Address [address] [facility] [address] [place] [address] Care Team Providers Care Mobile Sales Expert Name Role Phone Samantha Mcbride Primary Care Provider BROOKE Martin Unavailable [phone] Gretchen Moran Unavailable [phone] Allergies Allergen (clinical drug ingredient) Drug/Non Drug [...] Diltiazem HCl CR Act mohamud BuSpar Active Cardizem CD 240 MG 1 capsule Orally Onc e a day for 30 days Active Trelegy Ellipta 100-62.5-25 MCG/ACT 1 puff [...] e a day Active Vitamin D2 Active Cannabidiol Active Nitroglycerin 0.4 MG 1 [...] Status Risk Notes Problem Morbid obesity (disorder) (836111845) Morbid (severe) obesity due to excess calories (E66.01) Active confirmed Problem Lymphedema (493464405) Lymphedema, not elsewhere classified (I89.0) Active confirmed Problem Palpitations (61498648) Palpitations (R00.2) Active confirmed Problem Dyspnea (220932414) Dyspnea, unspecified (R06.00) Active confirmed Problem Chest pain (16235682) Chest pain, unspecified (R07.9) Active confirmed Problem Syncope and collapse (038151631) Syncope and collapse (R55) Active confirmed Problem Mixed hyperlipidemia (185805601) Hyperlipemia, mixed (E78.2) Active confirmed Vital Signs Heart Rate 99 /min 09/15/2024 Blood pressure diastolic 67 mm Hg 09/15/2024 Height 68 in 09/15/2024 Blood pressure systolic 112 mm Hg 09/15/2024 Weight 324 lbs 09/15/2024 BMI 49.26 kg/m2 09/15/2024 Encounters Encounter Location Date Provider Diagnosis [facility] [address] [place] [address] 05/19/2024 BROOKE MOSS [facility] [address] [place], [place] [id number] 06/23/2024 BROOKE MOSS [facility] [address] [facility] [address] [place] [address] 06/23/2024 [facility] [address] [place] [address] [place] [address] 08/06/2024 BROOKE MOSS [facility] [address] [facility] [address] [place] [address] 08/24/2024 BROOKE MOSS [facility] [address] [place], [place] [id number] 09/17/2024 BROOKE AJAY [address] [id number] 10/19/2024 BROOKE AJAY [address] [id number] 05/04/2024 BROOKEBERNIE MOSS Syncope and collapse R55 ; Morbid (severe) obesity due to excess calories E66.01 ; Palpitations R00.2 ; Dyspnea, unspecified R06.00 ; Chest pain, unspecified R07.9 and Lymphedema, not elsewhere classified I89.[address] [id number] 08/24/2024 Gretchen Moran Syncope and collapse R55 ; Chest pain, unspecified R07.9 ; Morbid (severe) obesity due to excess calories E66.01 ; Palpitations R00.2 ; Dyspnea, unspecified R06.00 and Lymphedema, not elsewhere classified I89.0 [facility] [address] [id number] 09/15/2024 BROOKE AJAY Syncope and collapse R55 ; Morbid (severe) obesity due to excess calories E66.01 ; Palpitations R00.2 ; Dyspnea, unspecified R06.00 ; Chest pain, unspecified R07.9 and Lymphedema, not elsewhere classified I89.0 [facility] [address] [address] 05/04/2024 BROOKE MOSS [facility] [address] [place] [address] 05/04/2024 BROOKE AJAY [facility] [address] [place] [address] 05/06/2024 BROOKE AJAY Hyperlipemia, mixed E78.[address] [id number] 05/12/2024 BROOKE AJAY [address] [id number] 06/22/2024 BROOKE AJAY [facility] [address] [place] [address] 08/25/2024 BROOKE AJAY [address] [id number] 08/31/2024 BROOKE AJAY [address] [id number] 08/31/2024 BROOKE AJAY Chest pain, unspecified R07.[address] [id number] 12/02/2024 BROOKE AJAY Chest pain, unspecified R07.[address] [id number] 12/04/2024 BROOKE AJAY Chest pain, unspecified R07.9 Assessments Encounter Date Diagnosis (ICD Code) Assessment Notes Treatment Notes Treatment Clinical Notes Section Notes 05/04/2024 Morbid (severe) obesity due to excess calories (ICD-10 - E66.01) Need to check lipids if not done,weiht skylar measures,perhaps GLP1a,per Dr Mcbride 05/04/2024 Syncope and [...] Insured Coverage Start Date Coverage End Date [facility] [address] [place], [place] [id number] Loly Rios Self - patient is the insured Medical (General) History Medical History History ICD Code Arthritis or DJD Anemia Asthma Depression Insulin Resistance Surgical History Surgery Date(Month/Year) Temp Mandibular Setback 1992 Gastric Bypass (Open) 1996 Right Breast Lumpectomy 1997 Right Breast Biopsy 2016 Left Ovary Removal 2017 Both Fallopian Tubes Removed 2018
--- OUTSIDE RECORDS SUMMARY | 2025-01-14 02:20 | XMS_ITS | Encounter Summary ---
Author Organization [facility] Address [address] [place] [address] Care Team Providers Care Electrician Shop Name Role Phone Dilcia Ivan MD Primary Care Provi [facility] Reason for Referral * Consultation (Routine) - Closed Specialty Diagnoses / Procedures Referred By Contac t Referred To Contact Rheumatology Diagnoses Chronic fatigue Dilcia Ivan MD [address] [address] Phone: tel: fax: Ric Chaparro MD [address] [place] [address] Phone: tel: fax: Referral ID Status Reason Start Date Expiration Date V isits Requested Visits Authorized [id number] Closed Specialty Services Required 12/30/2024 01/29/2026 6 6 Question Answer Please select the performing region: External Order [171] To provider: RIC CHAPARRO [[id number]] # of visits: 6 Comments Encounter Details Date Type Department Care Team (Late st Contact Info) Description 12/30/[address] [facility] Family Medicine [address] [phone] Dilcia Ivan MD [address] [place] [address] Rheumatology Social History Tobacco Use Types Packs/Day Years Used Date Smoking Tobacco: Former Cigarettes Q uit: 1991 Smokeless Tobacco: Never AUDIT-C Answer Date Recorded [...] on file Legal Sex Female 1:54 AM VIDEO CLERK Gender Identity Female 10/25/2021 3:40 PM VIDEO CLERK Sexual Orientation Straight 10/25/2021 3: 40 PM VIDEO CLERK documented as of this encounter Miscellaneous Notes * Telephone Encounter - Rama Jackson - 12/31/2024 7:35 AM CDT Referral faxed * Telephone Encounter - Shantelle Hidalgo LPN - 12/30/2024 3:15 PM CDT Referral placed. documented in this encounter Plan of Treatment Scheduled Referrals Name Type Priority Associated Diagnoses Order Schedule Ambulatory referral to Rheumatology Outpatient Referral Routine Chronic fatigue Expected: 12/30/2024 (Approximate), Expires: 12/30/2025 documented as of this encounter Visit Diagnoses Diagnosis Chronic fatigue- Primary Other malaise and fatigue documented in this encounter Care Teams Electrician Shop Relationship Specialty Start Date End Date Dilcia Ivan MD [address] [place] [address] PCP - General Family Medicine 06/14/21 documented as of this encounter
--- OUTSIDE RECORDS SUMMARY | 2025-01-14 02:20 | XMS_ITS | Clinical Summary ---
Author Organization [facility] Address [address], [facility] [address] [place] [address] Phone Care Team Providers Care Optometrist/Practice Owner Name Role Phone Provider, None Primary Care [...] Active DYMISTA 137-50 MCG/ACT Suspension take 1 Lead by inhalation 2 times daily. 5 6 [...] by inhalation 2 times daily. Active Evening Eldridge Oil 1000 MG Capsule Take 1 Cap [...] Comments Blood Pressure 128/86 07/03/2017 10:39 AM SUPERVISOR STAVE CUTTING Pulse 89 07/03/2017 10:39 AM SUPERVISOR STAVE CUTTING Temperature 36.8 C (98.3 F) 07/03/2017 10:39 AM SUPERVISOR STAVE CUTTING Respiratory Rate 18 07/03/2017 10:39 AM SUPERVISOR STAVE CUTTING Oxygen Saturation 98% 07/03/2017 10:39 AM SUPERVISOR STAVE CUTTING Inhaled Oxygen Concentration - - Weight 96.6 kg (213 lb) 07/03/2017 10:39 AM SUPERVISOR STAVE CUTTING Height 175.3 cm (5' 9) 07/03/2017 10:39 AM SUPERVISOR STAVE CUTTING Body Mass Index 31.45 07/03/2017 10:39 AM SUPERVISOR STAVE CUTTING Plan of Treatment Health Maintenance Due Date [...] to complete this topic Insurance Care Teams Optometrist/Practice Owner Relationship Specialty Start Date End Date Provider, None [place] PCP - General 02/09/21
--- OUTSIDE RECORDS SUMMARY | 2025-01-14 02:20 | XMS_ITS | Encounter Summary ---
Author Organization [facility] Address [address] [place] [address] Phone Care Team Providers Care Logistics Supervisor Name Role Phone Dilcia Ivan MD Primary Care Provi beronica Skylar Huffman RN Unavailable [phone] Encounter Details Date Type Department Care Team (Late st Contact Info) Description 04/18/2023 Documentation [facility] Neurosurgery [address] [facility] 6th [place] [address] [place] [address] Abigail Morton [facility] Social History Tobacco Use Types Packs/Day Years [...] on file Legal Sex Female 1:54 AM CHILD ADVOCATE Gender Identity Female 10/25/2021 3:40 PM CHILD ADVOCATE Sexual Orientation Straight 10/25/2021 3: 40 PM CHILD ADVOCATE documented as of this encounter Plan of Treatment Not on file documented as of this encounter Visit Diagnoses Not on filedocumented in this encounter Additional Health Concerns Infection Onset Date Last Indicated Resolved Time COVID: Suspected 06/06/2023 06/06/2023 06/06/2023 6:57 PM CDT COVID: Suspected 06/06/2023 06/06/2023 06/06/2023 10:57 PM CDT documented as of this encounter Care Teams Logistics Supervisor Relationship Specialty Start Date End Date Dilcia Ivan MD [facility] [address] [place] [address] PCP - General Family Medicine 06/14/21 Skylar Huffman, RN [address] [place] [address] Nurse Navigator 03/01/23 07/29/23 documented as of this encounter
--- OUTSIDE RECORDS SUMMARY | 2025-01-14 02:20 | XMS_ITS | Patient Health Record ---
Author Organization [employer] [facility] Address [address] [address] Care Team Providers Care Landfill Gas Plant Field Technician Name Role Phone Cedrick Mcbriden Primary Care Provider Sue Leroy Unavailable [phone] Migration, Provider Unavailable Unavailable Allergies Allergen (clinical [...] date:07/02/2024 07:53:48 PM Interpretation: Performing Lab:[facility], [address] [place], [address] Symone Barnes MD Notes/Report: FASTING:YES FASTING: YES VITAMIN D, 25-HYDROXY, LC/MS /MS Reviewed date:07/02/2024 07:57:41 PM Interpretation: Performing Lab:[facility], [address] [place], [address] Symone Barnes MD Notes/Report: FASTING:YES FASTING: YES ACTH, PLASMA Reviewed date:07/09/2024 08:14:34 PM Interpretation: Performing Lab:[facility], [address], [place], [address] Abdelrahman Elaine M.D.,PhD Notes/Report: FASTING:YES FASTING: YES JULIANNA IFA SCREEN W/REFL TO TIT ER AND PATTERN, IFA Reviewed date:07/02/2024 08:01:35 PM Interpretation: Performing Lab:[facility], [address], [place], [address] Symone Barnes MD Notes/Report: FASTING:YES FASTING: YES T3, FREE Reviewed date:07/02/2024 08:05:15 PM Interpretation: Performing Lab:[facility], [address], [place], [place], [address] Symone Barnes MD Notes/Report: FASTING:YES FASTING: YES DHEA SULFATE Reviewed date:07/02/2024 07:52:51 PM Interpretation: Performing Lab:[facility], [address], [place], [address] Symone Barnes MD Notes/Report: FASTING:YES FASTING: YES RHEUMATOID FACTOR Reviewed date:07/02/2024 07:52:44 PM Interpretation: Performing Lab:[facility], [address], [place], [address] Symone Barnes MD Notes/Report: FASTING:YES FASTING: YES CBC (INCLUDES DIFF/PLT) Reviewed date:07/02/2024 08:04:25 PM Interpretation: Performing Lab:[facility], [address], [place], [address] Symone Barnes MD Notes/Report: FASTING:YES FASTING: YES VITAMIN B12/FOLATE, SERUM PA XIN Reviewed date:07/02/2024 08:05:57 PM Interpretation: Performing Lab:[facility], [address], [place], [address] Symone Barnes MD Notes/Report: FASTING:YES FASTING: YES IRON AND TOTAL IRON BINDING CAPACITY Reviewed date:07/02/2024 07:53:01 PM Interpretation: Performing Lab:[facility], [address], [place], [place], [address] JaniceDarcy Barnes MD Notes/Report: FASTING:YES FASTING: YES T4, FREE Reviewed date:07/02/2024 08:04:10 PM Interpretation: Performing Lab:[place], [facility], [address], [place], [address] Symone Barnes MD Notes/Report: FASTING:YES FASTING: YES TSH Reviewed date:07/02/2024 08:04:35 PM Interpretation: Performing Lab:[place], [facility], [address], [place], [address] Symone Barnes MD Notes/Report: FASTING:YES FASTING: YES ANTINUCLEAR ANTIBODIES TITER AND PATTERN Reviewed date:07/02/2024 07:52:29 PM Interpretation: Performing Lab:[place], [facility], [address], [place], [address] Symone Barnes MD Notes/Report: FASTING:YES FASTING: YES [...] NuMA-like International Consensus on JULIANNA Patterns (https://doi.org/10.1515/ xpnm-7575-1663) THYROID PEROXIDASE ANTIBODIE S Reviewed date:07/02/2024 07:52:37 PM Interpretation: Performing Lab:[place]ISS, [facility], [address] [facility], [place], [address] Manjit Goldstein Notes/Report: FASTING:YES FASTING: YES THYROID PEROXIDASE ANTIBODIES 4 <9 IU/mL COMPREHENSIVE METABOLIC PANE L Reviewed date:09/03/2024 05:20:40 PM Interpretation: Performing Lab:[place], [facility], [address], [place], [address] Symone Barnes MD Notes/Report: FASTING:YES FASTING: YES ACTH, PLASMA Reviewed date:09/06/2024 02:02:02 PM Interpretation: Performing Lab:[facility]NEY[facility]Estiven [facility], [address] [facility] , [place], [address] Abdelrahman Elaine M.D.,PhD Notes/Report: FASTING:YES FASTING: YES T3, FREE Reviewed date:09/03/2024 05:20:40 PM Interpretation: Performing Lab:[facility], [address], [place], [address] Symone Barnes MD Notes/Report: FASTING:YES FASTING: YES CORTISOL, TOTAL Reviewed date:09/03/2024 05:20:40 PM Interpretation: Performing Lab:[facility], [address], [place], [address] Symone Barnes MD Notes/Report: FASTING:YES PATIENT REFUSED SOME TESTING; PATIENT ENCOURAGED TO RETURN. FASTING: YES DHEA SULFATE Reviewed date:09/03/2024 05:20:40 PM Interpretation: Performing Lab:[facility], [address], [place], [address] Symone Barnes MD Notes/Report: FASTING:YES FASTING: YES HEMOGLOBIN A1c Reviewed date:09/03/2024 05:20:40 PM Interpretation: Performing Lab:[facility], [address] [facility] , [place], [address] Symone Barnes Notes/Report: FASTING:YES FASTING: YES LIPID PANEL Reviewed date:09/03/2024 05:20:40 PM Interpretation: Performing Lab:[facility], [address], [place], [address] Symone Barnes MD Notes/Report: FASTING:YES FASTING: YES T4, FREE Reviewed date:09/03/2024 05:20:40 PM Interpretation: Performing Lab:[facility], [address], [place], [address] Symone Barnes MD Notes/Report: FASTING:YES FASTING: YES TSH Reviewed date:09/03/2024 05:20:40 PM Interpretation: Performing Lab:[place], [facility], [address] [place], [address] Symnoe Barnes MD Notes/Report: FASTING:YES FASTING: YES DEXAMETHASONE Reviewed date:09/13/2024 01:56:33 PM Interpretation: Performing Lab:[facility],, [address] [place], [address] Brandie Mata MD,PhD,KACIE Notes/Report: SPLIT 09/02/2024 FROM [id number] FASTING:YES FASTING: YES DEXAMETHASONE 305 Reference Ranges for Dexamethasone: Baseline: Less than 20 ng/dL 1 mg dexamethasone overnight: 180-550 ng/dL (8:00-10:00 AM) This test was developed and its analytical performance characteristics have been determined by [employer]. It has not been cleared or approved [...] 1.5 MG TAKE 1 CAPSULE BY [facility] DAILY for 90 Days Active Pantoprazole [...] Unk nown Vitamin D (Ergocalciferol) 1.25 MG (35414 UT) 1 cap(s) orally once a week for 90 days 04/21/2024 Unknown Metoprolol Succinate ER 50 MG for 90 Days Unknown Problems Problem Type SNOMED Code ICD Code Onset Dates Problem Status W/U Status Risk Notes Problem Vitamin D deficiency (10126267) Vitamin D deficiency, unspecified (E55.9) Active confirmed Problem Obesity (510705418) Obesity, unspecified (E66.9) Active confirmed Problem Fibromyalgia (911884187) Fibromyalgia (M79.7) Active confirmed Problem Disorder of adrenal gland (64939603) Disorder of adrenal gland, 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 Problem Generalized anxiety disorder (27761473) Generalized anxiety disorder (F41.1) Active confirmed Problem Insomnia (461356208) Insomnia due to medical condition (G47.01) Active confirmed Problem Chronic pain syndrome (166576407) Chronic pain syndrome (G89.4) Active confirmed Vital Signs Heart Rate 94 /min 09/25/2024 Blood pressure diastolic 82 mm Hg 09/25/2024 Height 68 in 09/25/2024 Blood pressure systolic 129 mm Hg 09/25/2024 Weight 334 lbs 09/25/2024 BMI 50.78 kg/m2 09/25/2024 Encounters Encounter Location Date Provider Diagnosis [facility] - Samantha Mcbride [address] [place] [address] 09/25/2024 Samantha Mcbride Obesity, unspecified E66.9 ; Prediabetes R73.03 ; Disorder of adrenal gland, unspecified E27.9 ; Other fatigue R53.83 ; Insomnia due to medical condition G47.01 ; Generalized anxiety disorder F41.1 and Dietary counseling and surveillance Z71.3 [facility] - Samantha Mcbride [address] [place] [address] 11/05/2024 Samantha [facility] - Samantha Mcbride [address] [place] [address] 07/16/2024 Samantha Mcbride Prediabetes R73.03 ; Obesity, unspecified E66.9 ; Other fatigue R53.83 and Encounter for screening for lipoid disorders Z13.220 [facility] [address] [place] [address] 07/11/2024 Provider Migration Abnormal weight gain R63.5 ; Prediabetes R73.03 and Vitamin D deficiency, unspecified E55.9 [facility] - Samantha Mcbride [address] [place] [address] 04/21/2024 Sue Leroy Abnormal weight gain R63.5 ; Prediabetes R73.03 ; Localized swelling, mass and lump, lower limb, bilateral R22.43 ; Other fatigue R53.83 ; Shortness of breath R06.02 ; Tachycardia, unspecified R00.0 ; Vitamin D deficiency, unspecified E55.9 ; Vitamin B12 deficiency anemia, unspecified D51.9 ; Chronic pain syndrome G89.4 and Iron deficiency E61.1 [facility] [address] [place] [address] 04/23/2024 Samantha [facility] - Samantha Mcbride [address] [place] [address] 06/23/2024 Samantha [facility] - Samantha Mcbride [address] [place] [address] 06/29/2024 Samantha Mcbride [facility] [address] [place] [address] 07/17/2024 Samantha [facility] - Samantha Mcbride [address] [place] [address] 08/11/2024 Samantha Mcbride [facility] [address] [place] [address] 08/24/2024 Samantha Mcbride Obesity, unspecified E66.9 [facility] [address] [place] [address] 09/13/2024 Samantha Mcbride [facility] [address] [address] 05/06/2024 Sue Leroy [facility] [address] [address] 06/10/2024 Sue Leroy Assessments Encounter Date Diagnosis [...] and shortness of breath. She has seen Pharmacist Aide however given metoprolol, then diltazelem w/o improvement [...] and Plan: 1. 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 Early hypothyroidism - Recommend [id number] Thyroid Support supplement from [facility] - Reevaluate thyroid function in [...] procedures, referring and communicating with other health career counselor, documenting clinical information in the electronic or [...] Monitor lipid levels. Reassess after completing the Delaplane's workup and potential treatment. Impaired Fasting GlucoseRecent [...] procedures, referring and communicating with other health career counselor, documenting clinical information in the electronic or [...] Insured Coverage Start Date Coverage End Date [facility] [address] [place] [address] [id number] Loly Rios Self - patient is the [...]
--- OUTSIDE RECORDS SUMMARY | 2025-01-14 02:20 | XMS_ITS | Patient Health Record ---
Author Organization [facility] Address [address] [place] [address] Care Team Providers Care Beater Worker Helper Name Role Phone Mary Luna Unavailable [phone] Reason For Referral No Information Plan Of Treatment No Information Insurance Providers Payer Name Payer Address Payer Phone Subscriber Number Group Number Insured Name Patient Relationship to Insured Coverage Start Date Coverage End Date [facility] [address] [place] [address] [id number] Loly Rios Self - patient is the insured Medical (General) History Surgical History Surgery Date(Month/Year) Lumpectomy; 2021-04-12 Gastric Bypass; 2021-04-12 breast cyst removed; 2021-04-12
--- OUTSIDE RECORDS SUMMARY | 2025-01-14 02:20 | XMS_ITS | Patient Health Record ---
Author Organization [facility] [employer] [facility] [place] ([address]) Address [address] [place] [address] Care Team Providers Care Assistant Cross Country Coach Name Role Phone Kishan Sweeney Primary Care Provider Unavailab Ivis Davila Unavailable [phone] Abdelrahman Riley Unavailable [phone] [facility], Provider Unavailable Unavailab rajan Allergies Allergen [...] Vaccine Route Administration Date Status Comme nts NOC Tdap IM Intramuscular 01/21/2015 Administered NOC Pneumovax 23 IM Intramuscular 01/21/2015 Administered NOC PedvaxHIB IM Intramuscular 01/21/2015 Administered NOC Flucelevax Quadrivalent Unknown 08/10/2020 Refused Influenza Unknown 06/08/2016 Administered Social History Tobacco Use: Social History Observation Description Date Details (start date - stop date) Never Smoker NA - NA Smoking Smart Form: Question Answer Notes Are you a: never smoker Problems Problem Type SNOMED Code ICD Code Onset Dates Problem Status W/U Status Risk Notes Problem 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) Active confirmed Problem Dysthymia (87192192) Dysthymic disorder (F34.1) Active confirmed Problem Complex regional pain syndrome type I (disorder) (408333770) Complex regional pain syndrome I, unspecified (G90.50) Active confirmed Problem Chronic allergic conjunctivitis (60168846) Other chronic allergic conjunctivitis (H10.45) Active confirmed Problem Allergic rhinitis caused by pollen (disorder) (75931693) Allergic rhinitis due to pollen (J30.1) Active confirmed Problem Allergic rhinitis caused by animal hair and dander (801250449165155 ) Allergic rhinitis due to animal (cat) (dog) hair and dander (J30.81) Active confirmed Problem Allergic rhinitis (23088380) Other allergic rhinitis (J30.89) Active confirmed Problem Chronic sinusitis (27671737) Chronic sinusitis, unspecified (J32.9) Active confirmed Problem Exacerbation of moderate persistent asthma (disorder) (783021334) Moderate persistent asthma with (acute) exacerbation (J45.41) Active confirmed Problem Functional dyspepsia (4566327) Functional dyspepsia (K30) Active confirmed Problem Allergic rhinitis caused by pollen (disorder) (10978695) Allergic rhinitis due to pollen (J30.1) Active confirmed Problem Allergic rhinitis caused by animal hair and dander (329445099552028 ) Allergic rhinitis due to animal (cat) (dog) hair and dander (J30.81) Active confirmed Problem Allergic rhinitis (34594527) Other allergic rhinitis (J30.89) Active confirmed Problem Uncomplicated moderate persistent asthma (775108134) Moderate persistent asthma, uncomplicated (J45.40) Active confirmed Problem Chronic allergic conjunctivitis (58689779) Other chronic allergic conjunctivitis (H10.45) Active confirmed Problem Allergic contact dermatitis caused by chemical (183627589986269 03) Allergic contact dermatitis due to other chemical products (L23.5) Active confirmed Problem Eruption of skin (878400093) Rash and other nonspecific skin eruption (R21) Active confirmed Problem Elevated blood pressure reading without diagnosis of hypertension (848760971) Elevated blood-pressure reading, without diagnosis of hypertension (R03.0) Active confirmed Problem Vitamin D deficiency (98491944) Vitamin D deficiency, unspecified (E55.9) Active confirmed Problem Disorder of vocal cord (20965799) Other diseases of vocal cords (J38.3) Active confirmed Problem History of systemic steroid therapy (461965771427770 ) Personal history of systemic steroid therapy (Z92.241) Active confirmed Encounters Encounter Location Date Provider Diagnosis [facility] [address] [place], [place] [address] [address] 02/08/2024 Provider [facility]Z-Migration Plan Of Treatment Pending Test Test Name Order Date X ray : Chest 02/16/2021 X ray : Chest 02/17/2021 Insurance Providers Payer Name Payer Address Payer Phone Subscriber Number Group Number Insured Name Patient Relationship to Insured Coverage Start Date Coverage End Date [facility] [address] [place] [address] [id number] Gianni Rios Spouse - patient is the spouse of [...]
[2025-04-06 13:02] VITALS: BMI 48.7
--- OUTSIDE RECORDS SUMMARY | 2025-04-20 00:12 | XMS_ITS | Clinical Summary ---
Author Organization [facility] Address [address] [place] [address] Care Team Providers Care Rag Sorter Name Role Phone Kishan Sweeney MD Primary Care Provider Allergies Active Allergy Reactions Criticality Noted Date [...] 3:46 PM CDT Height 172.7 cm (5' 8) 04/21/2021 3:46 PM CDT Body Mass Index [...] patient's age to complete this topic Insurance [facility] Care Teams Rag Sorter Relationship Specialty Start Date End Date Kishan Sweeney MD [address] [place] [address] PCP - General INTERNAL MEDICINE 04/21/21
--- OUTSIDE RECORDS SUMMARY | 2025-04-20 00:12 | XMS_ITS | Encounter Summary ---
Author Organization [facility] Address [address] [place] [address] Phone Care Team Providers Care Society Reporter Name Role Phone Kishan Sweeney MD Primary Care Provider [phone] Dilcia Ivan MD Primary Care Provi beronica Skylar Huffman RN Unavailable [phone] Encounter Details Date Type Department Care Team (Latest Contact Info) Description 06/27/2017 Orders Only [facility] CONVERSION Scanning, Provider Social History Tobacco Use Types Packs/Day Years Used Date Smoking Tobacco: Former Comments Unknown Sex and Gender Information Value Date Recorded Sex Assigned at Not on file Legal Sex Female 1:54 AM HAT RENOVATOR Gender Identity Female 10/25/2021 3:40 PM HAT RENOVATOR Sexual Orientation Straight 10/25/2021 3: 40 PM HAT RENOVATOR documented as of this encounter Plan of [...] documented as of this encounter Care Teams Society Reporter Relationship Specialty Start Date End Date Kishan Sweeney MD [address] [place] [address] PCP - General 06/26/17 06/13/21 Dilcia Ivan MD [address] [place] [address] PCP - General Family Medicine 06/14/21 Skylar Huffman, RN [address] [place] [address] Nurse Navigator 03/01/23 07/29/23 documented as of this encounter
--- OUTSIDE RECORDS SUMMARY | 2025-04-20 00:12 | XMS_ITS | Encounter Summary ---
Author Organization [facility] Address [address] [place] [address] Care Team Providers Care Gis Consultant Name Role Phone Kishan Sweeeny MD Primary Care Provider [phone] Encounter Details Date Type Department Care Team (Late st Contact Info) Description 01/31/2019 Abstract [facility] CONVERSION [address] [place] [address] , Generic Conversion, Social History Tobacco Use [...] documented as of this encounter Care Teams Gis Consultant Relationship Specialty Start Date End Date Kishan Sweeney MD [address] [place] [address] PCP - General INTERNAL MEDICINE 04/21/21 documented as of this encounter
--- OUTSIDE RECORDS SUMMARY | 2025-04-20 00:12 | XMS_ITS | Encounter Summary ---
Author Organization [facility] Address [address] [place] [address] Care Team Providers Care Personal Care Home Administrator Name Role Phone Dilcia Ivan MD Primary Care Provi beronica Encounter Details Date Type Department Care Team (Late st Contact Info) Description 02/28/2025 Results Follow-Up [facility] Family Medicine [address] [address] Dilcia Ivan MD [address] [address] XR Spine Lumbar 2 Or 3 Vw Social History Tobacco Use Types Packs/Day Years Used Date Smoking Tobacco: Former Cigarettes Q uit: 1992 Smokeless Tobacco: Never AUDIT-C Answer Date Recorded Q1: How often do you have a drink containing alc ohol? 2-4 times a month 02/25/2025 Q2: How many drinks containi ng alcohol do you have on a typical day when you are drinking? 1 or 2 02/25/2025 Q3: How often do you have si x or more drinks on one occasion? Never 02/25/2025 PHQ-2 Answer Date Recorded PHQ-2 Total Score [...] on file Legal Sex Female 1:54 AM PROFESSOR OF NURSING Gender Identity Female 10/25/2021 3:40 PM PROFESSOR OF NURSING Sexual Orientation Straight 10/25/2021 3: 40 PM PROFESSOR OF NURSING documented as of this encounter Plan of Treatment Not on file documented as of this encounter Visit Diagnoses Not on filedocumented in this encounter Care Teams Personal Care Home Administrator Relationship Specialty Start Date End Date Dilcia Ivan MD [address] [place] [address] PCP - General Family Medicine 06/14/21 documented as of this encounter
--- OUTSIDE RECORDS SUMMARY | 2025-04-20 00:12 | XMS_ITS | Clinical Summary ---
Author Organization [facility] Address [address] [place] [address] Care Team Providers Care Charm Filter Operator Helper Name Role Phone Dilcia Ivan MD Primary [...] rozerem (Sleeping aid) Adhesive Rash Medium 04/06/2016 Tirzepatide (Weight Loss) Nausea & Vomiting,Stomach upset,Vomiting Low 02/25/2025 Topiramate Other (See comments) Low 06/04/2018 Unable to eat, acid reflux, stomach pain Medications medical cannabis each Take 1 Dose by mouth as needed Pain Last use 05/26/23 Active inhalational spacing device (Aerochamber MV) spacer Use as directed with inhaler. 06/11/20 17 Active cycloSPORINE (Restasis) 0.05 % ophthalmic emulsionIndicati ons:dry eye Administer 1 drop into both eyes every 12 (twelve) hours 09/09/19 16 Active escitalopram (LEXAPRO) 20 mg tabletIndication s:Anxiety with Depression Take 1.5 tablets (30 mg total) by mouth daily after lunch Pt is taking 2 tabs a day. 04/19/20 21 Active ondansetron (ZOFRAN) 4 mg tablet Take 1 tablet (4 mg total) by mouth as needed for nausea or vomiting 08/11/20 20 Active clonazePAM (KlonoPIN) 1 mg tablet Take 1 tablet (1 mg total) by mouth as needed for anxiety 06/28/20 22 Active Vyvanse 70 mg capsuleIndicatio ns:Attention-Def icit Hyperactivity Disorder Take 1 capsule (70 mg total) by mouth every morning 09/14/19 23 Active sodium chloride (ROSE MARIE 128) 5 % ophthalmic solutionIndicati ons:Corneal Edema 1 drop 3 (three) times a day Active sodium chloride 5 % ophthalmic ointmentIndicati ons:Corneal Edema Apply 1 drop to both eyes nightly Active fluticasone-umec lidin-vilanter (Trelegy Ellipta) 100-62.5-25 mcg inhaler INHALE 1 PUFF BY MOUTH DAILY 60 each 2 06/15/20 24 Active cetirizine (ZyrTEC) 10 mg tablet daily Active cyanocobalamin (Vitamin B-12) 1,000 mcg/mL injection INJECT 1 ML UNDER THE SKIN ONCE WEEKLY 05/19/20 24 Active metFORMIN XR (GLUCOPHAGE XR) 500 mg 24 hr tablet Take 1 tablet (500 mg total) by mouth daily 07/16/20 24 Active BD Integra Syringe 3 mL 23 gauge x 1 syringe as directed 05/19/20 24 Active albuterol (PROAIR RESPICLICK) 90 mcg/actuation inhalerIndicatio ns:Acute sinusitis, recurrence not specified, unspecified location Inhale 2 puffs 4 (four) times a day 1 each 10/14/19 25 026 Active cholecalciferol (VITAMIN D-3) 2000 unit capsule daily Active iyvb-IZ-azy-epa- JMY-VJSK-vj-mv (EnLyte) 1.5 mg iron- 8.73 mg capsule,IR & delay rel,biphase 02/09/20 25 Active omeprazole (PriLOSEC) 40 mg capsule Take 1 capsule (40 mg total) by mouth 2 (two) times a day 02/02/20 25 Active traZODone (DESYREL) 100 mg tablet 01/08/20 25 Active dilTIAZem CD 240 mg 24 hr capsule Take 1 capsule (240 mg total) by mouth daily 02/16/20 25 Active tiZANidine (ZANAFLEX) 4 mg tabletIndication s:Fibromyalgia TAKE 1 TABLET(4 MG) BY MOUTH EVERY 8 HOURS NEEDED FOR MUSCLE SPASMS 30 tablet 1 03/26/20 25 Active tiZANidine (ZANAFLEX) 4 mg tabletIndication s:Muscle Spasm Take 1 tablet (4 mg total) by mouth every 8 (eight) hours as needed for muscle spasms 30 tablet 1 02/26/20 25 025 Discontinued Active Problems Problem Noted Date Diagnosed Date Paroxysmal tachycardia 02/25/2025 Assessment & Plan (02/25/2025 4:07 PM CDT): Well adult exam 07/31/2024 Overview (07/31/2024): Reviewed working on a heart healthy diet and activity to her level. Health Maintenance: Last PAP: hysterectomy Last mammogram: encouraged to set up Last colonoscopy: 2021 Vaccines when she is able to Assessment & Plan (07/31/2024 5:03 PM CONTROL CABINET ASSEMBLER): Reviewed working on a heart healthy diet [...] 09/25/2022 Assessment & Plan (09/25/2022 11:14 AM CONTROL CABINET ASSEMBLER): Chronic nausea and vomiting. Labs including LFTs [...] 09/25/2022 Assessment & Plan (09/25/2022 11:14 AM CONTROL CABINET ASSEMBLER): Last colonoscopy August [address] Yovani Reaves with 2 tubular adenomas and 3 hyperplastic polyps. -repeat colonoscopy August 2026 Gastroesophageal reflux disease without esophagi tis 09/25/2022 Assessment & Plan (09/25/2022 11:15 AM CONTROL CABINET ASSEMBLER): Chronic GERD, taking pantoprazole b.i.d.. -continue PPI b.i.d. - discuss long-term side effects of PPIs and goal to reduce to PPI once daily, we will address pending EGD -RECOMMENDATIONS given include: anti-reflux maneuvers, Avoid acidic foods like oranges and tomatoes., avoidance of spicy foods, avoid eating 3-4 hours before bed, elevation of the head of the bed, and weight loss Fibromyalgia 07/31/2022 Assessment & Plan (02/25/2025 4:07 PM CDT): Orders: tiZANidine (ZANAFLEX) 4 mg tablet; Take 1 tablet (4 mg total) by mouth every 8 (eight) hours as needed for muscle spasms COVID-19 07/30/2022 Tachycardia 07/04/2022 Assessment & Plan (07/04/2022 2:07 PM CONTROL CABINET ASSEMBLER): Ordered 24 hour Holter monitor today. Referral for Cardiology placed. She will follow up as needed after she sees Cardiology. Lung nodule 07/04/2022 Assessment & Plan (07/04/2022 2:08 PM CONTROL CABINET ASSEMBLER): Discussed with patient that the radiologist recommended [address] follow-up if she had risk factors for lung cancer. She reports her grandfather of lung cancer. She does not personally have smoking, secondhand smoke asbestos or Radon exposure. She would like to have a repeat scan in 1 year. Dizziness 07/04/2022 Assessment & Plan (07/04/2022 2:07 PM CONTROL CABINET ASSEMBLER): Patient instructed to change positions slowly in [...] 10/18/2021 Assessment & Plan (10/18/2021 2:53 PM CONTROL CABINET ASSEMBLER): Due to the snoring and hypersomnia, I [...] 06/14/2021 Assessment & Plan (07/31/2024 3:11 PM CONTROL CABINET ASSEMBLER): Chronic, slight progression Continue zepbound BMI Follow-up includes: nutrition counseling. Assessment & Plan (04/09/2024 12:11 PM CDT): Chronic, worse BMI Follow-up includes: Continue working on healthy lifestyle changes. Labs ordered for further guidance . Assessment & Plan (07/26/2023 4:24 PM CONTROL CABINET ASSEMBLER): Chronic, slightly worse Appetite currently diminished with [...] concerns Assessment & Plan (09/25/2022 11:14 AM CONTROL CABINET ASSEMBLER): History of gastric bypass in 1996. Diagnosed with gastric fistula in [id number] on EGD. Referred to bariatric surgery who recommended medical management. -obtain prior GI records Complex regional pain syndrome i of right upper limb 01/15/2017 Assessment & Plan (07/13/2021 3:01 PM CONTROL CABINET ASSEMBLER): With acute flare of her pain Continue [...] current regimen Continue to follow with her party host/hostess Chronic pain 04/06/2016 Assessment & Plan (06/14/2021 2:57 PM CDT): Stable, though does need norco rarely She has been working on healthy changes to support her symptoms Continue supportive care Consider referral to pain management Call for questions or concerns Arthritis 04/06/2016 Reflex sympathetic dystrophy 04/06/2016 Assessment & Plan (07/13/2021 3:02 PM CONTROL CABINET ASSEMBLER): With an acute flare Continue hydrocodone as [...] at 20 mg - continue Mucinex and xrfe-vsx-rtqxcuz Robitussin - if cough is still bothersome at night, please contact us and may consider cough syrup with codeine Functional dyspepsia 10/04/2022 024 Depressive disorder 07/31/2022 07/31/20 24 Anxiety 07/31/2022 07/31/2024 Meningioma 12/05/2021 07/31/2024 Mild persistent asthma, well controlled 09/17/2016 06/14/2021 Pain in extremity 04/16/2013 07/31/2024 Encounters Date Type Department Care Team Description 02/28/2025 Results Follow-Up [address] [phone] Dilcia Ivan MD XR Spine Lumbar 2 Or 3 Vw 02/25/2025 4:25 PM CDT - 02/25/2025 11:59 PM CDT Hospital Encounter [facility] Diagnostic Imaging [address] [place] [phone] Acute right-sided low back pain with right-sided sciatica Discharge Disposition: Discharge to home or self care 02/25/2025 2:45 PM CDT Office Visit [address] [phone] Dilcia Ivan MD Acute right-sided low back pain with right-sided sciatica (Primary Dx); Paroxysmal tachycardia (HCC); Fibromyalgia; Class 3 severe obesity without serious comorbidity with body mass index (BMI) of 45.0 to 49.9 in adult, unspecified obesity type 02/24/2025 Nurse Triage [facility] Medicine [address] [place] [phone] Dilcia Ivan MD 01/23/2025 Results Follow-Up [facility] Family Medicine [address] [phone] Dilcia Ivan MD Screening Mammogram Bilateral W Law 01/21/2025 1:11 PM CDT - 01/21/2025 11:59 PM CDT Hospital Encounter [facility] Breast Imaging [facility] ([facility]) [address] [place] [address] Screening mammogram, encounter for Discharge Disposition: Discharge to home or self care from Last 3 Months Immunizations Immunization Administration Dates Next Due Hib (PRP-D) 01/21/2015 Hib (PRP-OMP) 01/21/2015 Influenza, Quadrivalent, Rec ombinant, Egg Free, Preservative Free, Intramuscular 07/02/2018 Influenza, Trivalent, IM (MDV) 06/08/2016 Influenza, Unspecified 07/31/2024(Deferr ed: Patient Refused),05/26/2024(Deferred: Patient Refused),05/26/2023(Deferred: Patient Refused),05/26/2023(Deferred: Patient Refused),05/26/2023(Deferred: Patient decision),08/13/2022(Deferred: Patient Refused),07/04/2022(Deferred: Patient Refused),05/26/2022(Deferred: Patient Refused),08/15/2021(Deferred: Patient Refused),08/13/2021(Deferred: Patient Refused),05/27/2021(Deferred: Patient Refused),05/26/2021(Deferred: Patient Refused),05/26/2020(Deferred: Patient Refused),05/26/2020(Deferred: Patient Refused) Pneumococcal Polysaccharide PPV23 05/30/2018, Tdap 05/30/2018,01/21/2015 Surgical History Surgery Date Site/Laterality Comments AL EXC CYST/ABERRANT BREAST TISSUE OPEN 1/> LESION [...] on file Legal Sex Female 1:54 AM CONTROL CABINET ASSEMBLER Gender Identity Female 10/25/2021 3:40 PM CONTROL CABINET ASSEMBLER Sexual Orientation Straight 10/25/2021 3: 40 PM CONTROL CABINET ASSEMBLER Obstetrics History Para Term AB IAB SAB Ectopic Multiple Livin g Live Births 3 3 3 3 3 Date Outcome GA Total Labor Labor/2nd/3rd Weight Sex Type Anes PTL Riddhi A1 A5 Name Clin Term Living Term Living Term Living Last Filed Vital Signs Vital Sign Reading Time Taken Comments Blood Pressure 112/84 02/25/2025 2:45 PM CDT Pulse 110 02/25/2025 2:45 PM CDT Temperature 35.7 C (96.3 F) 02/25/2025 2:45 PM CDT Respiratory Rate 14 02/25/2025 2:45 PM CDT Oxygen Saturation 98% 02/25/2025 2:45 PM CDT Inhaled Oxygen Concentration - - Weight 139.9 kg (308 lb 6.4 oz) 02/25/2025 2:45 PM CDT Height 174 cm (5' 8.5) 02/25/2025 2:45 PM CDT Body Mass Index 46.21 02/25/2025 2:45 PM CDT Plan of Treatment Health Maintenance Due Date Last Done Comments Hepatitis B Screening 01/14/1992 Pneumococcal vaccine <65 (2 of 2 - PCV) 05/30/2019 05/30/2018, 01/21/2015 Zoster Vaccine (1 of 2) 01/14/2024 Influenza Vaccine (#1) 2025 07/02/2018, 2015 Depression Screening 07/31/2025 07/31/2024, 07/31/2024, 04/09/2024, Additional history exists Regular Well Visit/Exam 18-64 07/31/2025 07/31/2024, 10/04/2022 Cervical Cancer Screening 08/17/2025 08/17/2020 Breast Cancer Screening-Mammogram 01/21/2026 01/21/2025, 08/21/2022, 08/17/2020 Colon Cancer Screening-Colonoscopy 09/12/20262021 DTaP/Tdap/Td Vaccine (3 - Td or Tdap) 05/30/2028 05/30/2018, 01/21/2015 Hepatitis C Screening Completed 09/02/2024 Procedures Procedure Name Priority Date/Time Associated Diagnosis Comments XR SPINE LUMBAR 2 OR 3 VIEWS Schedule Routine, Read Routine (OP Routine) 02/25/2025 4:51 PM CDT Acute right-sided low back pain with right-sided sciatica SCREENING MAMMOGRAM BILATERAL W LAW Schedule Routine, Read Routine (OP Routine) 01/21/2025 1:35 PM CDT Screening mammogram, encounter for HEPATITIS C ANTIBODY Routine 09/02/2024 9:37 AM CONTROL CABINET ASSEMBLER Need for hepatitis C screening test COLONOSCOPY Routine 09/12/2021 HM PAP SMEAR WITH HPV Routine 08/17/2020 from Last 3 Months or Most Recently Relevant to Health Maintenance Results * XR Spine Lumbar 2 Or 3 Vw (02/25/2025 4:51 PM CDT) Anatomical Region Laterality Modality Spine N/A Computed Radiogr aphy 02/25/2025 9:00 PM CDT Narrative 02/25/2025 9:03 PM CDT EXAM DESCRIPTION: XR SPINE LUMBAR 2 OR 3 VIEWS REASON FOR STUDY: acute low back pain NKI. Low back pain with pain that travels down the right leg. Pain for 1 1/2 weeks now. NO prior surgery to the low back. 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 TECHNIQUE: There are 3 radiographic view(s) of the lumbar spine. COMPARISON: No prior. CT 12/07/2024 FINDINGS: ALIGNMENT: Minimal retrolisthesis L2 on L3, L3 on L4 and L4 on L5. VERTEBRAL BODIES: L5 is transitional. There is preservation of vertebral body height. No acute fracture. Mild facet arthropathy lower lumbar spine. DISCS: Mild multilevel disc space narrowing. SOFT TISSUES: Within normal limits. Sacroiliac joints are intact. IMPRESSION: 1. Mild spondylosis lumbar spine. 2. L5 is transitional. THIS IS AN ELECTRONICALLY VERIFIED FINAL REPORT 02/25/2025 9:03 PM - Electronically signed by Lupillo JARVIS: MATHEUS Report ID: [id number] Reading Location: [place] [id number] Procedure Note Lupillo Everett MD - 02/25/2025 EXAM DESCRIPTION: XR SPINE LUMBAR 2 OR 3 VIEWS REASON FOR STUDY: acute low back pain NKI. Low back pain with pain that travels down the right leg. Pain for 11/2 weeks now. NO prior surgery to the low back. Pt stated she was diagnosedwith SI joint dysfunction in 2005. TECHNIQUE: There are 3 radiographic view(s) of the lumbar spine. COMPARISON: No prior. CT 12/07/2024 FINDINGS: ALIGNMENT: Minimal retrolisthesis L2 on L3, L3 on L4 and L4 onL5. VERTEBRAL BODIES: L5 is transitional. There is preservation of vertebral body height. No acute fracture. Mild facet arthropathy lower lumbarspine. DISCS: Mild multilevel disc space narrowing. SOFT TISSUES: Within normal limits. Sacroiliac joints are intact. IMPRESSION: 1. Mild spondylosis lumbar spine. 2. L5 is transitional. THIS IS AN ELECTRONICALLY VERIFIED FINAL REPORT 02/25/2025 9:03 PM - Electronically signed by Lupillo Everett M.D. MJ: MATHEUS Report ID: [id number] Reading Location: [id number] us Dilcia Ivan MD IMG XR PROCEDURES F inal Result * Screening Mammogram Bilateral W Law (01/21/2025 1:35 PM CDT) Anatomical Region Laterality Modality Breast Bilateral Mammography Narrative 01/22/2025 11:15 AM CDT Mammogram Technique: Bilateral Digital Breast Tomosynthesis, Bilateral C-view 2D Screening mammogram. Views obtained: bilateral craniocaudal and bilateral mediolateral oblique. Computer Aided Detection was performed. Mammogram Findings: The present examination has been compared to prior imaging studies performed at [facility] on 06/12/2019 and 08/16/2020, and at [place], [place] on 08/21/2022. There are scattered areas of fibroglandular density. There is no suspicious abnormality in either breast. Impression: There is no mammographic evidence of malignancy. Annual screening mammography is recommended. OVERALL FINAL ASSESSMENT: BI-RADS CATEGORY 1: Negative. Procedure Note Senait Jimenez MD - 01/22/2025 Mammogram Technique: Bilateral Digital Breast Tomosynthesis, Bilateral C-view 2D Screening mammogram. Views obtained: bilateral craniocaudal and bilateral mediolateral oblique. Computer Aided Detection was performed. Mammogram Findings: The present examination has been compared to prior imaging studies performed at [facility] on 06/12/2019 and 08/16/2020, and at [place], [place] on 08/21/2022. There are scattered areas of fibroglandular density. There is no suspicious abnormality in either breast. Impression: There is no mammographic evidence of malignancy. Annual screening mammography is recommended. OVERALL FINAL ASSESSMENT: BI-RADS CATEGORY 1: Negative. us Self Screening Mammogram IMG MAMMO PROCEDURES Fi nal Result * Hepatitis C antibody Blood (09/02/2024 9:37 AM CONTROL CABINET ASSEMBLER) Hep C Ab Nonreactive Nonreactive Comment: Antibodies [...] revised on 2019. Blood 09/02/2024 9:37 AM CONTROL CABINET ASSEMBLER 09/02/2024 1:07 PM CONTROL CABINET ASSEMBLER Dilcia Ivan MD LAB MICROBIOLOGY - GENERAL ORDERABLES Final Result [facility] [address] [facility] Department [place] [address] * (ABNORMAL) Colonoscopy (09/12/2021) Anatomical Region Laterality Modality Other Historical Provider ENDOSCOPY PROCEDURES Edit ed Result - Final * HM PAP SMEAR WITH HPV (08/17/2020) Historical Provider HEALTH MAINTENANCE Final Result from Last 3 Months or Most Recently Relevant to Health Maintenance Insurance [employer] [place] Care Teams Charm Filter Operator Helper Relationship Specialty Start Date End Date Dilcia Ivan MD [address] [place], [place] [phone] PCP - General Family Medicine 06/14/21
--- OUTSIDE RECORDS SUMMARY | 2025-04-20 00:13 | XMS_ITS | Patient Health Record ---
Author Organization [facility] Address [address] [place], [place] [address]judie Reid [place] [id number] Care Team Providers Care Components Engineer Name Role Phone Reed Samantha Primary Care Provider Migration, Provider Unavailable Unavailable Sue Leroy Unavailable [phone] Allergies Allergen (clinical drug ingredient) Drug/Non Drug Allergy documented on EMR Reaction Allergy Type Onset Date Status acetaminophen Acetaminophen Unknown Drug Allergy Active amitriptyline Amitriptyline HCl Unknown Drug Allergy Active erythromycin Erythromycin Unknown Drug Allergy A ctive gabapentin Gabapentin Unknown Drug Allergy Activ e prochlorperazine Prochlorperazine Unknown Drug Allergy Active ramelteon Ramelteon Unknown Drug Allergy Active topiramate Topiramate Unknown Drug Allergy Activ e minocycline Minocycline Unknown Drug Allergy Act mohamud oxycodone oxyCODONE Unknown Drug Allergy Active Results Component Value Reference Range Flag Notes COMPREHENSIVE METABOLIC PANE L Reviewed date:07/02/2024 07:53:48 PM Interpretation: Performing Lab:MD, [facility], [address] [place], [address] Symone Barnes MD Notes/Report: FASTING:YES Fasting reference interval FASTING: YES GLUCOSE 96 65-99 mg/dL N UREA NITROGEN (BUN) 20 7-25 mg/dL N CREATININE 1.04 0.50-1.03 mg/dL H EGFR 65 > OR = 60 mL/min/1.73m2 N BUN/CREATININE RATIO 19 6-22 (calc) N SODIUM 143 135-146 mmol/L N POTASSIUM 4.3 3.5-5.3 mmol/L N CHLORIDE 104 98-110 mmol/L N CARBON DIOXIDE 26 20-32 mmol/L N CALCIUM 9.6 8.6-10.4 mg/dL N PROTEIN, TOTAL 6.5 6.1-8.1 g/dL N ALBUMIN 4.3 3.6-5.1 g/dL N GLOBULIN 2.2 1.9-3.7 g/dL (calc) N ALBUMIN/GLOBULIN RATIO 2.0 1.0-2.5 (calc) N BILIRUBIN, TOTAL 0.4 0.2-1.2 mg/dL N ALKALINE PHOSPHATASE 106 37-153 U/L N AST 12 10-35 U/L N ALT 10 6-29 U/L N VITAMIN D, 25-HYDROXY, LC/MS /MS Reviewed date:07/02/2024 07:57:41 PM Interpretation: Performing Lab:[facility], [address] [place], [address] Symone Barnes MD Notes/Report: Vitamin D Status 25-OH Vitamin D: FASTING:YES Deficiency: <20 ng/mL FASTING: YES Insufficiency: 20 - 29 ng/mL Optimal: > or = 30 ng/mL For 25-OH Vitamin D testing on patients on D2-supplementation and patients for whom quantitation of D2 and D3 fractions is required, the QuestAssureD(TM) 25-OH VIT D, (D2,D3), LC/MS/MS is recommended: order code 33962 (patients >2yrs). See Note 1 Note 1 For additional information, please refer to http://education.Works.io/faq/KER929 (This link is being provided for informational/ educational purposes only.) VITAMIN D,25-OH,TOTAL,IA 45 30-100 ng/mL N ACTH, PLASMA Reviewed date:07/09/2024 08:14:34 PM Interpretation: Performing Lab:[facility], [address], [place], [address] Abdelrahman Elaine M.D.,PhD Notes/Report: FASTING:YES Reference range applies only to specimens collected between 7am-10am. FASTING: YES ACTH, PLASMA 32 6-50 pg/mL JULIANNA IFA SCREEN W/REFL TO TIT ER AND PATTERN, IFA Reviewed date:07/02/2024 08:01:35 PM Interpretation: Performing Lab:[facility], [address] [place], [address] Symone Barnes MD Notes/Report: JULIANNA IFA is a first line screen for detecting the FASTING:YES presence of up to approximately 150 autoantibodies in various autoimmune diseases. A positive JULIANNA IFA result FASTING: YES is suggestive of autoimmune disease and reflexes to titer and pattern. Further laboratory testing may be considered if clinically indicated. For additional information, please refer to http://education.Works.io/faq/XPM494 (This link is being provided for informational/ educational purposes only.) JULIANNA SCREEN, IFA POSITIVE NEGATIVE A T3, FREE Reviewed date:07/02/2024 08:05:15 PM Interpretation: Performing Lab:Thomas FELICIANO, [place], [address] Symone Barnes MD Notes/Report: FASTING:YES FASTING: YES T3, FREE 3.6 2.3-4.2 pg/mL N DHEA SULFATE Reviewed date:07/02/2024 07:52:51 PM Interpretation: Performing Lab:Thomas FELICIAN[facility], [place], [address] Symone Barnes MD Notes/Report: FASTING:YES FASTING: YES DHEA SULFATE 30 15-205 mcg/dL N RHEUMATOID FACTOR Reviewed date:07/02/2024 07:52:44 PM Interpretation: Performing Lab:Thomas FELICIANO, [place], [address] Symone Barnes MD Notes/Report: FASTING:YES FASTING: YES RHEUMATOID FACTOR <10 <14 IU/mL N CBC (INCLUDES DIFF/PLT) Reviewed date:07/02/2024 08:04:25 PM Interpretation: Performing Lab:Thomas FELICIANO, [place], [address] Symone Barnes MD Notes/Report: For adults, a slight decrease in the calculated MCHC FASTING:YES value (in the range of 30 to 32 g/dL) is most likely not clinically significant; however, it should be FASTING: YES interpreted with caution in correlation with other red cell parameters and the patient's clinical condition. WHITE BLOOD CELL COUNT 7.0 3.8-10.8 Thousand/uL N RED BLOOD CELL COUNT 5.01 3.80-5.10 Million/uL N HEMOGLOBIN 14.0 11.7-15.5 g/dL N HEMATOCRIT 44.1 35.0-45.0 % N MCV 88.0 80.0-100.0 fL N MCH 27.9 27.0-33.0 pg N MCHC 31.7 32.0-36.0 g/dL L RDW 13.2 11.0-15.0 % N PLATELET COUNT 333 140-400 Thousand/uL N MPV 9.6 7.5-12.5 fL N ABSOLUTE NEUTROPHILS 4466 9091-1347 cells/uL N ABSOLUTE LYMPHOCYTES 7493 432-8285 cells/uL N ABSOLUTE MONOCYTES 525 200-950 cells/uL N ABSOLUTE EOSINOPHILS 112 15-500 cells/uL N ABSOLUTE BASOPHILS 63 0-200 cells/uL N NEUTROPHILS 63.8 N LYMPHOCYTES 26.2 N MONOCYTES 7.5 N EOSINOPHILS 1.6 N BASOPHILS 0.9 N VITAMIN B12/FOLATE, SERUM PA XIN Reviewed date:07/02/2024 08:05:57 PM Interpretation: Performing Lab:[facility], [address] [place], [address] Symone Barnes MD Notes/Report: Reference Range FASTING:YES Low: <3.4 Borderline: 3.4-5.4 FASTING: YES Normal: >5.4 VITAMIN B12 268 901-9769 pg/mL N FOLATE, SERUM 4.8 L IRON AND TOTAL IRON BINDING CAPACITY Reviewed date:07/02/2024 07:53:01 PM Interpretation: Performing Lab:[facility], [address] [place], [address] Symone Barnes MD Notes/Report: FASTING:YES FASTING: YES IRON, TOTAL 73 45-160 mcg/dL N IRON BINDING CAPACITY 358 250-450 mc g/dL (calc) N % SATURATION 20 16-45 % (calc) N T4, FREE Reviewed date:07/02/2024 08:04:10 PM Interpretation: Performing Lab:[facility], [place], [address] Symone Barnes MD Notes/Report: FASTING:YES FASTING: YES T4, FREE 1.0 0.8-1.8 ng/dL N TSH Reviewed date:07/02/2024 08:04:35 PM Interpretation: Performing Lab:[facility], [address], [place], [address] Symone Barnes MD Notes/Report: Reference Range FASTING:YES > or = 20 Years 0.40-4.50 FASTING: YES Ranges First trimester 0.26-2.66 Second trimester 0.55-2.73 Third trimester 0.43-2.91 TSH 2.51 N ANTINUCLEAR ANTIBODIES TITER AND PATTERN Reviewed date:07/02/2024 07:52:29 PM Interpretation: Performing Lab:[facility], [address], [place], [address] Symone Barnes MD Notes/Report: A low level JULIANNA titer may be present in pre-clinical Nuclear-Mitotic Apparatus-like pattern. Nuclear speckled FASTING:YES autoimmune diseases and normal individuals. staining with spindle fibers. Pattern associated with Reference Range Sjogren's syndrome, systemic lupus erythematosus (SLE) FASTING: YES <1:40 Negative and possibly other connective tissue disorders. 1:40-1:80 Low Antibody Level >1:80 Elevated Antibody Level AC-26: NuMA-like International Consensus on JULIANNA Patterns (https://doi.org/10.1515/lemw-3605-3493) JULIANNA TITER 1:40 H JULIANNA PATTERN Mitotic, NuMA-like A THYROID PEROXIDASE ANTIBODIE S Reviewed date:07/02/2024 07:52:37 PM Interpretation: Performing Lab:CHRISS, [facility], [address] [facility], [place], [address] Manjit Goldstein Notes/Report: FASTING:YES FASTING: YES THYROID PEROXIDASE ANTIBODIES 4 <9 IU/mL COMPREHENSIVE METABOLIC PANE L Reviewed date:09/03/2024 05:20:40 PM Interpretation: Performing Lab:[facility], [address], [place], [address] Symone Barnes MD Notes/Report: Not Reported: BUN and Creatinine are within FASTING:YES Fasting reference interval reference range. FASTING: YES For someone without known diabetes, a glucose value between 100 and 125 mg/dL is consistent with prediabetes and should be confirmed with a follow-up test. GLUCOSE 104 65-99 mg/dL H UREA NITROGEN (BUN) 11 7-25 mg/dL N CREATININE 0.97 0.50-1.03 mg/dL N EGFR 71 > OR = 60 mL/min/1.73m2 N BUN/CREATININE RATIO SEE NOTE: 6-22 (calc) SODIUM 142 135-146 mmol/L N POTASSIUM 4.5 3.5-5.3 mmol/L N CHLORIDE 104 98-110 mmol/L N CARBON DIOXIDE 28 20-32 mmol/L N CALCIUM 9.3 8.6-10.4 mg/dL N PROTEIN, TOTAL 6.3 6.1-8.1 g/dL N ALBUMIN 4.1 3.6-5.1 g/dL N GLOBULIN 2.2 1.9-3.7 g/dL (calc) N ALBUMIN/GLOBULIN RATIO 1.9 1.0-2.5 (calc) N BILIRUBIN, TOTAL 0.4 0.2-1.2 mg/dL N ALKALINE PHOSPHATASE 99 37-153 U/L N AST 15 10-35 U/L N ALT 14 6-29 U/L N ACTH, PLASMA Reviewed date:09/06/2024 02:02:02 PM Interpretation: Performing Lab:Thomas [facility], [address] [facility] , [place], [address] Abdelrahman Elaine M.D.,PhD Notes/Report: FASTING:YES Reference range applies only to specimens collected between 7am-10am. FASTING: YES ACTH, PLASMA 20 6-50 pg/mL T3, FREE Reviewed date:09/03/2024 05:20:40 PM Interpretation: Performing Lab:[facility], [address] [place], [address] Symone Barnes MD Notes/Report: FASTING:YES FASTING: YES T3, FREE 3.3 2.3-4.2 pg/mL N CORTISOL, TOTAL Reviewed date:09/03/2024 05:20:40 PM Interpretation: Performing Lab:Thomas [facility], [address] [place], [address] Symone Barnes MD Notes/Report: Reference Range: For 8 a.m.(7-9 a.m.) Specimen: 4.0-22.0 FASTING:YES Reference Range: For 4 p.m.(3-5 p.m.) Specimen: 3.0-17.0 PATIENT REFUSED SOME TESTING; PATIENT ENCOURAGED TO RETURN. * Please interpret above results accordingly * FASTING: YES CORTISOL, TOTAL 16.9 N DHEA SULFATE Reviewed date:09/03/2024 05:20:40 PM Interpretation: Performing Lab:Thomas [facility], [address] [place], [address] Symone Barnes MD Notes/Report: FASTING:YES FASTING: YES DHEA SULFATE 18 15-205 mcg/dL N HEMOGLOBIN A1c Reviewed date:09/03/2024 05:20:40 PM Interpretation: Performing Lab:[facility], [address], [place], [address] Symone Barnes Notes/Report: For the purpose of screening for the presence of FASTING:YES diabetes: FASTING: YES <5.7% Consistent with the absence of diabetes 5.7-6.4% Consistent with increased risk for diabetes (prediabetes) > or =6.5% Consistent with diabetes This assay result is consistent with a decreased risk of diabetes. Currently, no consensus exists regarding use of hemoglobin A1c for diagnosis of diabetes in children. According to [place] Diabetes Association (ADA) guidelines, hemoglobin A1c <7.0% represents optimal control in non- diabetic patients. Different metrics may apply to specific patient populations. Standards of Medical Care in Diabetes(ADA). HEMOGLOBIN A1c 5.5 <5.7 % of total Hgb N LIPID PANEL Reviewed date:09/03/2024 05:20:40 PM Interpretation: Performing Lab:[facility], [address] [place], [address] Symone Barnes MD Notes/Report: Reference range: <100 For patients with diabetes plus 1 major ASCVD risk FASTING:YES factor, treating to a non-HDL-C goal of <100 mg/dL Desirable range <100 mg/dL for primary prevention; (LDL-C of <70 mg/dL) is considered a therapeutic FASTING: YES <70 mg/dL for patients with CHD or diabetic patients option. with > or = 2 CHD risk factors. LDL-C is now calculated using the Ganesh-Levy calculation, which is a validated novel method providing better accuracy than the Friedewald equation in the estimation of LDL-C. Ganesh SS et al. BLAS. 2013;310(19): 1487-0664 (http://Ruckus.Works.io/faq/UZP836) CHOLESTEROL, TOTAL 221 <200 mg/dL H HDL CHOLESTEROL 58 > OR = 50 mg/dL N TRIGLYCERIDES 168 <150 mg/dL H LDL-CHOLESTEROL 132 H CHOL/HDLC RATIO 3.8 <5.0 (calc) N NON HDL CHOLESTEROL 163 <130 mg/dL (calc) H T4, FREE Reviewed date:09/03/2024 05:20:40 PM Interpretation: Performing Lab:[facility], [address] [place], [address] Symone Barnes MD Notes/Report: FASTING:YES FASTING: YES T4, FREE 1.1 0.8-1.8 ng/dL N TSH Reviewed date:09/03/2024 05:20:40 PM Interpretation: Performing Lab:[facility], [address] [place], [address] Symone Barnes MD Notes/Report: Reference Range FASTING:YES > or = 20 Years 0.40-4.50 FASTING: YES Ranges First trimester 0.26-2.66 Second trimester 0.55-2.73 Third trimester 0.43-2.91 TSH 1.84 N DEXAMETHASONE Reviewed date:09/13/2024 01:56:33 PM Interpretation: Performing Lab:[facility],, [address] [place], [address] Brandie Mata MD,PhD,KACIE Notes/Report: SPLIT 09/02/2024 FROM [id number] Reference Ranges for Dexamethasone: FASTING:YES Baseline: Less than 20 ng/dL FASTING: YES 1 mg dexamethasone overnight: 180-550 ng/dL (8:00-10:00 AM) This test was developed and its analytical performance characteristics have been determined by [facility]. It has not been cleared or approved by FDA. This assay has been validated pursuant to the CLIA regulations and is used for clinical purposes. DEXAMETHASONE 305 CORTISOL, TOTAL (367) Reviewed date:12/14/2024 10:29:42 PM Interpretation: Performing Lab:Thomas [facility] [facility], [place] Symone Barnes MD Notes/Report: CORTISOL, TOTAL 0.8 L Reference Range: For 4 p.m.(3-5 p.m.) Specimen: 3.0-17.0 * Please interpret above results accordingly * Reference Range: For 8 a.m.(7-9 a.m.) Specimen: 4.0-22.0 DEXAMETHASONE ([id number]) Reviewed date:12/28/2024 08:48:30 PM Interpretation: Performing Lab:Thomas [facility]AZ/[facility],[address] [facility] Brandie Mata MD,PhD,KACIE Notes/Report: DEXAMETHASONE 463 This test was developed and its analytical performance used for clinical purposes. Reference Ranges for Dexamethasone: has been validated pursuant to the CLIA regulations and is Baseline: Less than 20 ng/dL 1 mg dexamethasone overnight: 180-550 ng/dL (8:00-10:00 AM) characteristics have been determined by [facility]. It has not been cleared or approved by the FDA. This assay CORTISOL, LC/MS, SALIVA, 2 S AMPLES ([id number]) Reviewed date:12/27/2024 11:33:40 AM Interpretation: Performing Lab:[facility] [address] [facility] Brandie Mata MD,PhD,KACIE Notes/Report: URINE VOLUME: DRAW DATE 1 12/13/2024 DRAW TIME 1 12:00 AM CORTISOL, SALIVA SAMPLE 1 <0.03 10 PM-1 AM: < OR = 0.09 mcg/dL 8-10 AM: 0.04-0.56 mcg/dL characteristics have been determined by [facility]. used for clinical purposes. 4-6 PM: < OR = 0.15 mcg/dL noon-2 PM: < OR = 0.21 mcg/dL This test was developed and its analytical performance It has not been cleared or approved by the FDA. This assay has been validated pursuant to the CLIA regulations and is DRAW DATE 2 12/14/2024 DRAW TIME 2 12:00 AM CORTISOL, SALIVA SAMPLE 2 0.04 noon-2 PM: < OR = 0.21 mcg/dL has been validated pursuant to the CLIA regulations and is characteristics have been determined by [facility]. used for clinical purposes. 4-6 PM: < OR = 0.15 mcg/dL It has not been cleared or approved by the FDA. This assay This test was developed and its analytical performance 8-10 AM: 0.04-0.56 mcg/dL 10 PM-1 AM: < OR = 0.09 mcg/dL CORTISOL, FREE, 24 HOUR ETHEL Watts ([id number]) Reviewed date:12/19/2024 09:57:22 PM Interpretation: Performing Lab:E[facility], [facility],[address] [facility] Brandie Mata MD,PhD,KACIE Notes/Report: URINE VOLUME: 2000/24 TOTAL VOLUME 2000 CORTISOL, FREE, URINE 6.8 4.0-50.0 mcg/24 h CORTISOL, FREE, URINE 5.2 ADULTS: 3.1-42.3 Reference Range: CREATININE, URINE 1.29 0.50-2.15 g/24 h It has not been cleared or approved by the FDA. This assay This test was developed and its analytical performance used for clinical purposes. characteristics have been determined by [facility]. has been validated pursuant to the CLIA regulations and is Reason For Referral No Information Medications Medication SIG (Take, Route, Frequency, Duration) Notes Start Date End Date Status metFORMIN HCl ER 500 MG Tablet Extended Release 24 Hour TAKE 1 TABLET BY MOUTH DAILY; Duration: 90 Active Escitalopram Oxalate 20 MG Tablet 1 tab(s) orally once a day; Duration: 30 days 04/21/2024 Active clonazePAM 1 MG Tablet TAKE 1 TABLET BY MOUTH 3 TIMES NEEDED DAILY; Duration: 30 Days Active Dilt-XR 120 MG Capsule Extended Release 24 Hour ; Duration: 90 Days Active Vitamin D (Ergocalciferol) 1.25 MG (73017 UT) Capsule 1 cap(s) orally once a week; Duration: 90 days 04/21/2024 Active traZODone HCl 50 MG Tablet as directed orally Active Vyvanse 70 MG Capsule 1 cap(s) orally on ce a day (in the morning) Active Ergocalciferol 1.25 MG (93148 UT) Capsule 1 capsule Orally weekly; Duration: 90 days 12/30/2024 Active Omeprazole 40 MG Capsule Delayed Release 1 capsule Orally Once a day twice daily Active Social History Social History Additional Details Category Social Info Options Details Migrated Social History Migrated Social History (Alcohol:):no (Recreational drug use:):no (Smoking:):no Section Notes: Non-Contributory Problems Problem Type SNOMED Code ICD Code Onset Dates Problem Status W/U Status Risk Notes Problem Disorder of adrenal gland (62460246) Disorder of adrenal gland, 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 Problem Vitamin D deficiency, unspecified (E55.9) Active confirmed Problem Obesity (524321451) Obesity, unspecified (E66.9) Active confirmed Problem Chronic pain syndrome (888257770) Chronic pain syndrome (G89.4) Active confirmed Problem Fibromyalgia (246232734) Fibromyalgia (M79.7) Active confirmed Vital Signs Heart Rate 82 /min 12/30/2024 Respiratory Rate 12 /min 12/30/2024 Height-cm 172.72 cm 12/30/2024 Blood pressure diastolic 78 mm Hg 12/30/2024 Weight-kg 137.89 kg 12/30/2024 Height 68 in 12/30/2024 Blood pressure systolic 126 mm Hg 12/30/2024 Weight 304 lbs 12/30/2024 BMI 46.22 kg/m2 12/30/2024 Encounters Encounter Location Date Provider Diagnosis [address] [phone] 07/11/2024 Provider Migration Abnormal weight gain R63.5 ; Prediabetes R73.03 and Vitamin D deficiency, unspecified E55.[address] Mcbride [address] [place] [address] 09/25/2024 Samantha Mcbride AMYARELY Mcbride [address] [place] [phone] 04/21/2024 Sue Leroy Abnormal weight gain R63.5 ; Prediabetes R73.03 ; Localized swelling, mass and lump, lower limb, bilateral R22.43 ; Other fatigue R53.83 ; Shortness of breath R06.02 ; Tachycardia, unspecified R00.0 ; Vitamin D deficiency, unspecified E55.9 ; Vitamin B12 deficiency anemia, unspecified D51.9 ; Chronic pain syndrome G89.4 and Iron deficiency E61.[address] Mcbride [address] [place] [phone] 07/16/2024 Samantha Mcbride Obesity, unspecified E66.9 ; Prediabetes R73.03 ; Other fatigue R53.83 and Encounter for screening for lipoid disorders Z13.[address] Mcbride [address] [place] [phone] 12/30/2024 Samantha Mcbride Obesity, unspecified E66.9 ; Chronic pain syndrome G89.4 ; Vitamin D deficiency, unspecified E55.9 ; Other fatigue R53.83 and Prediabetes R73.03 [facility] [address] [place] [phone] 04/23/2024 Samantha Mcbride [address] [place] [phone] 06/23/2024 Samantha Mcbride [address] [place] [phone] 06/29/2024 Samantha Mcbride AMYARELY [facility] [address] [place] [phone] 07/17/2024 Samantha Mcbride [address] [place] [phone] 08/11/2024 Samantha Mcbride AMY[facility]ELY [facility] [address] [place] [phone] 08/24/2024 Samantha Mcbride Obesity, unspecified E66.9 [facility] [address] [place] [phone] 09/13/2024 Samantha Mcbride [address] [place] [phone] 11/24/2024 Samantha Mcbride Prediabetes R73.[address] [address] 11/25/2024 Samantha Mcbride Disorder of adrenal gland, unspecified E27.[address] [address] 11/30/2024 Samantha Mcbride [address] [phone] 05/06/2024 Sue Leroy [address] [phone] 06/10/2024 Sue Leroy Assessments Encounter Date Diagnosis (ICD Code) Assessment Notes Treatment Notes Treatment Clinical Notes Section Notes 07/11/2024 Abnormal weight gain (ICD-10 - R63.5) 07/11/2024 Prediabetes (ICD-10 - R73.03) 07/16/2024 Obesity, unspecified (ICD-10 - E66.9) 07/16/2024 Prediabetes (ICD-10 - R73.03) 08/24/2024 Obesity, unspecified (ICD-10 - E66.9) 11/24/2024 Prediabetes (ICD-10 - R73.03) 12/30/2024 Obesity, unspecified (ICD-10 - E66.9) 12/30/2024 Chronic pain syndrome (ICD-10 - G89.4) 04/21/2024 Abnormal weight gain (ICD-10 - R63.5) [...] day. Pt aware of side effect profile. 11/25/2024 Disorder of adrenal gland, unspecified (ICD-10 - E27.9) 12/30/2024 Vitamin D deficiency, unspecified (ICD-10 - E55.9) 07/16/2024 Other fatigue (ICD-10 - R53.83) 04/21/2024 Localized swelling, mass and lump, lower limb, bilateral (ICD-10 - R22.43) - Continue furosemide for swelling management. - Refer to Dr. Aleman for a second opinion on cardiology and swelling management. - Monitor the response to metformin for potential weight loss and improvement in insulin resistance. 04/21/2024 Other fatigue (ICD-10 - R53.83) - Plan to recheck thyroid function with free T3 and free T4. - Refill prescriptions for vitamin B12, folic acid, and vitamin D3. - Monitor the patient's response to treatment and reevaluate in 6-7 weeks. 07/16/2024 Encounter for screening for lipoid disorders (ICD-10 - Z13.220) 12/30/2024 Other fatigue (ICD-10 - R53.83) 12/30/2024 Prediabetes (ICD-10 - R73.03) 04/21/2024 Shortness of breath (ICD-10 - R06.02) 04/21/2024 Tachycardia, unspecified (ICD-10 - R00.0) -Refer to [facility] given pt tachycardia, bilateral limb swelling and shortness of breath. She has seen Engineering Geologist however given metoprolol, then diltazelem w/o improvement of symptoms. - Continue diltiazem for tachycardia management. - Reevaluate the effectiveness of diltiazem in controlling symptoms. 04/21/2024 Vitamin D deficiency, unspecified (ICD-10 - E55.9) 07/11/2024 Vitamin D deficiency, unspecified (ICD-10 - E55.9) 04/21/2024 Vitamin B12 deficiency anemia, unspecified (ICD-10 [...] with ALFONSO Grider. Agree with plan. Samantha cMbride MD 07/16/2024 Other Assessment and Plan: 1. 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 Early hypothyroidism - Recommend [id number]-[id number] Thyroid Support supplement from [employer] - Reevaluate thyroid function in 2 months [...] procedures, referring and communicating with other health healthcare marketer, documenting clinical information in the electronic or other health record, independently interpreting results and communicating results to the patient/family/careg iver and care coordinating patient plan. Patient alert and oriented x 4 and aware of discussion noted above and in agreeance to plan in management of weight gain/obesity, autoimmune thyroiditis, fatigue, and prediabetes. 12/30/2024 Other Assessment and Plan: 1. Gastrointestinal issues- Continue omeprazole 40 mg PO BID- Await results of scheduled endoscopy and colonoscopy- Follow up with GI doctor for ongoing management 2. Weight management- Continue metformin (dose not specified)- Monitor weight- Consider alternative weight management strategies after GI issues are resolved 3. Tachycardia- Continue diltiazem as prescribed by clinical systems educator- Follow up with clinical systems educator for ongoing management of tachycardia 4. Generalized weakness- Order thyroid function tests and blood glucose levels- Await rheumatology referral and subsequent evaluation- Follow up with neurologist in January to discuss ongoing weakness- Consider referral to finance business partner in [facility] if needed 5. Meningioma- Continue follow-up with neurologist as scheduled in January 6. Medication management- Continue current medications: diltiazem, metformin, escitalopram, clonazepam, omeprazole, and trazodone- Refill Vitamin D supplement (dose not specified)- Send prescription [facility] Vitamin D to [facility] 7. Respiratory management- Reassess need for Trelegy once weakness is addressed- Monitor respiratory symptoms Spent 25 minutes preparing to see the patient (ex review of tests/chart), obtaining and / or reviewing separately obtained history, performing a medically appropriate examination and/or evaluation, counseling and educating the patient/family/careg iver, ordering medications, tests, or procedures, referring and communicating with other health healthcare marketer, documenting clinical information in the electronic or other health record, independently interpreting results and communicating results to the patient/family/careg iver and care coordinating patient plan. Patient alert and oriented x 4 and aware of discussion noted above and in agreeance to plan in management of obesity/impaired glucose, chronic pain, fatigue, vit D def. Due to the nature of telemedicine, the ability to do physical assessment was limited to what can be accomplished by patient directed telehealth visit based on instruction. Those limits are understood by the patient and myself. Impression is based on history, available information, and physical findings accomplished with telehealth visit. Chronic disease/problem list/ medication list reviewed and updated where indicated. Discussed diagnosis, plan including risks, benefits, and options of treatment. Advised to call for new, worsening, or persistent symptoms. Level of patient risk was of moderate complexity due to the documented nature of presentation, the information assessment required and the nature of the development of an evaluation and treatment plan as documented. PMH, FHx, SHx, Surgical Hx, Quality management review carried out and addressed as documented today as part of this visit. Medication list was reviewed and adjusted as indicated. Medication requiring a refill was addressed. Risk and benefits of any new medications were discussed and all questions were answered. Plan Of Treatment Pending Test Test Name Order Date *CT ABDOMEN W/O CONTRAST 30713 5 Insurance Providers Payer Name Payer Address Payer Phone Subscriber Number Group Number Insured Name Patient Relationship to Insured Coverage Start Date Coverage End Date Diane [facility] 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 broken right hand
--- OUTSIDE RECORDS SUMMARY | 2025-04-20 00:13 | XMS_ITS | Patient Health Record ---
Author Organization [facility] Address [address] [address] Care Team Providers Care Professor Of Finance Name Role Phone Samantha Mcbride Primary Care Provider BROOKE Martin Unavailable [phone] Gretchen Moran Unavailable [phone] Allergies Allergen (clinical drug ingredient) Drug/Non Drug [...] MG 1 tablet Orally Twi ce a day; Duration: 90 days Active Montelukast Sodium 10 MG [...] MG 1 capsule Orally Onc e a day; Duration: 30 days Active Trelegy Ellipta 100-62.5-25 MCG/ACT [...] 5 minutes as needed up to 3 doses; Duration: 30 days 08/25/2024 Active ZyrTEC 10 MG [...] Status Risk Notes Problem Morbid obesity (disorder) (856078429) Morbid (severe) obesity due to excess calories (E66.01) Active confirmed Problem Lymphedema (672417917) Lymphedema, not elsewhere classified (I89.0) Active confirmed Problem Palpitations (89074628) Palpitations (R00.2) Active confirmed Problem Dyspnea (732380170) Dyspnea, unspecified (R06.00) Active confirmed Problem Chest pain (88556311) Chest pain, unspecified (R07.9) Active confirmed Problem Syncope and collapse (869951572) Syncope and collapse (R55) Active confirmed Problem Mixed hyperlipidemia (876421161) Hyperlipemia, mixed (E78.2) Active confirmed Vital Signs Heart Rate 99 /min 09/15/2024 Blood pressure diastolic 67 mm Hg 09/15/2024 Height 68 in 09/15/2024 Blood pressure systolic 112 mm Hg 09/15/2024 Weight 324 lbs 09/15/2024 BMI 49.26 kg/m2 09/15/2024 Encounters Encounter Location Date Provider Diagnosis [facility] [address] [facility] [address] [place] [address] 05/19/2024 BROOKE MOSS [facility] [address] [place], [place] [id number] 06/23/2024 BROOKE MOSS [facility] [address] [facility] [address] [place] [address] 06/23/2024 [facility] [address] [place] [address] [place] [address] 08/06/2024 BROOKE MOSS [facility] [address] [facility] [address] [place] [address] 08/24/2024 BROOKE MOSS [facility] [address] [facility] [address] [place] [id number] 09/17/2024 BROOKE MOSS [address] [id number] 10/19/2024 BROOKE MOSS [address] [id number] 05/04/2024 BROOKE MOSS Syncope and collapse R55 ; Morbid (severe) obesity due to excess calories E66.01 ; Palpitations R00.2 ; Dyspnea, unspecified R06.00 ; Chest pain, unspecified R07.9 and Lymphedema, not elsewhere classified I89.[address] [id number] 08/24/2024 Gretchen Moran Syncope and collapse R55 ; Chest pain, unspecified R07.9 ; Morbid (severe) obesity due to excess calories E66.01 ; Palpitations R00.2 ; Dyspnea, unspecified R06.00 and Lymphedema, not elsewhere classified I89.[address] [id number] 09/15/2024 BROOKE AJAY Syncope and collapse R55 ; Morbid (severe) obesity due to excess calories E66.01 ; Palpitations R00.2 ; Dyspnea, unspecified R06.00 ; Chest pain, unspecified R07.9 and Lymphedema, not elsewhere classified I89.0 [facility] [address] [place] [address] 05/04/2024 BROOKE AJAY [facility] [address] [place] [address] 05/04/2024 BROOKE AJAY [facility] [address] [place] [address] 05/06/2024 BROOKE AJAY Hyperlipemia, mixed E78.[address] [id number] 05/12/2024 BROOKE AJAY [address] [id number] 06/22/2024 BROOKE AJAY [facility] [address] [place] [address] 08/25/2024 BROOKE AJAY [address] [id number] 08/31/2024 BROOKE AJAY [address] [id number] 08/31/2024 BROOKE AJAY Chest pain, unspecified R07.[address] [id number] 12/02/2024 BROOKE AJAY Chest pain, unspecified R07.[address] [id number] 12/04/2024 BROOKE AJAY Chest pain, unspecified R07.9 [...] Insured Coverage Start Date Coverage End Date [facility] [address] [place], [place] [id number] Loly Rios Self - patient is the insured Medical (General) History Medical History History ICD Code Arthritis or DJD Anemia Asthma Depression Insulin Resistance Surgical History Surgery Date(Month/Year) Temp Mandibular Setback 1992 Gastric Bypass (Open) 1996 Right Breast Lumpectomy 1997 Right Breast Biopsy 2016 Left Ovary Removal 2017 Both Fallopian Tubes Removed 2018
--- OUTSIDE RECORDS SUMMARY | 2025-04-20 00:14 | XMS_ITS | Patient Health Record ---
Author Organization [employer] [facility] Address [address] [address] Care Team Providers Care Safety Deposit Clerk Name Role Phone Reed Samantha Primary Care Provider Sue Leroy Unavailable [phone] Migration, Provider Unavailable Unavailable Allergies Allergen (clinical [...] Active oxycodone oxyCODONE Unknown Drug Allergy Active Results Component Value Reference Range Notes COMPREHENSIVE METABOLIC PANE L Reviewed date:07/02/2024 07:53:48 PM Interpretation: Performing Lab:[facility], [address] [place], [address] Symone Barnes MD Notes/Report: FASTING:YES FASTING: YES VITAMIN D, 25-HYDROXY, LC/MS /MS Reviewed date:07/02/2024 07:57:41 PM Interpretation: Performing Lab:[facility], [address] [place], [address] Symone Barnes MD Notes/Report: FASTING:YES FASTING: YES ACTH, PLASMA Reviewed date:07/09/2024 08:14:34 PM Interpretation: Performing Lab:[facility], [address], [place], [address] Abdelrahman Elaine M.D.,PhD Notes/Report: FASTING:YES FASTING: YES JULIANNA IFA SCREEN W/REFL TO TIT ER AND PATTERN, IFA Reviewed date:07/02/2024 08:01:35 PM Interpretation: Performing Lab:[facility], [address], [place], [address] Symone Barnes MD Notes/Report: FASTING:YES FASTING: YES T3, FREE Reviewed date:07/02/2024 08:05:15 PM Interpretation: Performing Lab:[facility], [address], [place], [place], [address] Symone Barnes MD Notes/Report: FASTING:YES FASTING: YES DHEA SULFATE Reviewed date:07/02/2024 07:52:51 PM Interpretation: Performing Lab:[facility], [address], [place], [address] Symone Barnes MD Notes/Report: FASTING:YES FASTING: YES RHEUMATOID FACTOR Reviewed date:07/02/2024 07:52:44 PM Interpretation: Performing Lab:[facility], [address], [place], [address] Symone Barnes MD Notes/Report: FASTING:YES FASTING: YES CBC (INCLUDES DIFF/PLT) Reviewed date:07/02/2024 08:04:25 PM Interpretation: Performing Lab:[facility], [address], [place], [address] Symone Barnes MD Notes/Report: FASTING:YES FASTING: YES VITAMIN B12/FOLATE, SERUM PA XIN Reviewed date:07/02/2024 08:05:57 PM Interpretation: Performing Lab:[facility], [address], [place], [address] Symone Barnes MD Notes/Report: FASTING:YES FASTING: YES IRON AND TOTAL IRON BINDING CAPACITY Reviewed date:07/02/2024 07:53:01 PM Interpretation: Performing Lab:[facility], [address], [place], [place], [address] JaniceDarcy Barnes MD Notes/Report: FASTING:YES FASTING: YES T4, FREE Reviewed date:07/02/2024 08:04:10 PM Interpretation: Performing Lab:[place], [facility], [address], [place], [address] Symone Barnes MD Notes/Report: FASTING:YES FASTING: YES TSH Reviewed date:07/02/2024 08:04:35 PM Interpretation: Performing Lab:[place], [facility], [address], [place], [address] Symone Barnes MD Notes/Report: FASTING:YES FASTING: YES ANTINUCLEAR ANTIBODIES TITER AND PATTERN Reviewed date:07/02/2024 07:52:29 PM Interpretation: Performing Lab:[place], [facility], [address], [place], [address] Symone Barnes MD Notes/Report: FASTING:YES FASTING: YES [...] NuMA-like International Consensus on JULIANNA Patterns (https://doi.org/10.1515/ ofke-1271-9685) THYROID PEROXIDASE ANTIBODIE S Reviewed date:07/02/2024 07:52:37 PM Interpretation: Performing Lab:CHRISS, [facility], [address] [facility], [place], [address] Manjit Goldstein Notes/Report: FASTING:YES FASTING: YES THYROID PEROXIDASE ANTIBODIES 4 <9 IU/mL COMPREHENSIVE METABOLIC PANE L Reviewed date:09/03/2024 05:20:40 PM Interpretation: Performing Lab:[place], [facility], [address], [place], [address] Symone Barnes MD Notes/Report: FASTING:YES FASTING: YES ACTH, PLASMA Reviewed date:09/06/2024 02:02:02 PM Interpretation: Performing Lab:[facility], [address] [facility] , [place], [address] Abdelrahman Elaine M.D.,PhD Notes/Report: FASTING:YES FASTING: YES T3, FREE Reviewed date:09/03/2024 05:20:40 PM Interpretation: Performing Lab:[facility], [address], [place], [address] Symone Barnes MD Notes/Report: FASTING:YES FASTING: YES CORTISOL, TOTAL Reviewed date:09/03/2024 05:20:40 PM Interpretation: Performing Lab:[facility], [address], [place], [address] Symone Barnes MD Notes/Report: FASTING:YES PATIENT REFUSED SOME TESTING; PATIENT ENCOURAGED TO RETURN. FASTING: YES DHEA SULFATE Reviewed date:09/03/2024 05:20:40 PM Interpretation: Performing Lab:[facility], [address], [place], [address] Symone Barnes MD Notes/Report: FASTING:YES FASTING: YES HEMOGLOBIN A1c Reviewed date:09/03/2024 05:20:40 PM Interpretation: Performing Lab:[facility], [address] , [place], [address] Symone Barnes Notes/Report: FASTING:YES FASTING: YES LIPID PANEL Reviewed date:09/03/2024 05:20:40 PM Interpretation: Performing Lab:[facility], [address], [place], [address] Symone Barnes MD Notes/Report: FASTING:YES FASTING: YES T4, FREE Reviewed date:09/03/2024 05:20:40 PM Interpretation: Performing Lab:[facility], [address], [place], [address] Symone Barnes MD Notes/Report: FASTING:YES FASTING: YES TSH Reviewed date:09/03/2024 05:20:40 PM Interpretation: Performing Lab:[place], [facility], [address] [place], [address] Symone Barnes MD Notes/Report: FASTING:YES FASTING: YES DEXAMETHASONE Reviewed date:09/13/2024 01:56:33 PM Interpretation: Performing Lab:[facility],, [address] [place], [address] Brandie Mata MD,PhD,KACIE Notes/Report: SPLIT 09/02/2024 FROM [id number] FASTING:YES FASTING: YES DEXAMETHASONE 305 Reference Ranges for Dexamethasone: Baseline: Less than 20 ng/dL 1 mg dexamethasone overnight: 180-550 ng/dL (8:00-10:00 AM) This test was developed and its analytical performance characteristics have been determined by [facility] It has not been cleared or approved [...] 1.5 MG TAKE 1 CAPSULE BY [place] [facility] DAILY for 90 Days Active Pantoprazole Sodium [...] Unk nown Vitamin D (Ergocalciferol) 1.25 MG (43550 UT) 1 cap(s) orally once a week for 90 days 04/21/2024 Unknown Metoprolol Succinate ER 50 MG for 90 Days Unknown Problems Problem Type SNOMED Code ICD Code Onset Dates Problem Status W/U Status Risk Notes Problem Vitamin D deficiency (39529175) Vitamin D deficiency, unspecified (E55.9) Active confirmed Problem Obesity, unspecified (E66.9) Active confirmed Problem Fibromyalgia (219190802) Fibromyalgia (M79.7) Active confirmed Problem Disorder of adrenal gland (21367755) Disorder of adrenal gland, 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 Problem Generalized anxiety disorder (78686213) Generalized anxiety disorder (F41.1) Active confirmed Problem Insomnia (256725568) Insomnia due to medical condition (G47.01) Active confirmed Problem Chronic pain syndrome (876109795) Chronic pain syndrome (G89.4) Active confirmed Vital Signs Heart Rate 94 /min 09/25/2024 Blood pressure diastolic 82 mm Hg 09/25/2024 Height 68 in 09/25/2024 Blood pressure systolic 129 mm Hg 09/25/2024 Weight 334 lbs 09/25/2024 BMI 50.78 kg/m2 09/25/2024 Encounters Encounter Location Date Provider Diagnosis [facility], [facility] - Samantha Mcbride [address] [place] [address] 09/25/2024 Samantha Mcbride Obesity, unspecified E66.9 ; Prediabetes R73.03 ; Disorder of adrenal gland, unspecified E27.9 ; Other fatigue R53.83 ; Insomnia due to medical condition G47.01 ; Generalized anxiety disorder F41.1 and Dietary counseling and surveillance Z71.3 [facility], [facility] - Samantha Mcbride [address] [place] [address] 11/05/2024 Samantha [facility] - Samantha Mcbride [address] [place] [address] 07/16/2024 Samantha Mcbride Prediabetes R73.03 ; Obesity, unspecified E66.9 ; Other fatigue R53.83 and Encounter for screening for lipoid disorders Z13.220 [facility] [address] [place] [address] 07/11/2024 Provider Migration Abnormal weight gain R63.5 ; Prediabetes R73.03 and Vitamin D deficiency, unspecified E55.9 [facility] - Samantha Mcbride [address] [place] [address] 04/21/2024 Sue Leroy Abnormal weight gain R63.5 ; Prediabetes R73.03 ; Localized swelling, mass and lump, lower limb, bilateral R22.43 ; Other fatigue R53.83 ; Shortness of breath R06.02 ; Tachycardia, unspecified R00.0 ; Vitamin D deficiency, unspecified E55.9 ; Vitamin B12 deficiency anemia, unspecified D51.9 ; Chronic pain syndrome G89.4 and Iron deficiency E61.1 [facility] [address] [place] [address] 04/23/2024 Samantha [facility] - Samantha Mcbride [address] [place] [address] 06/23/2024 Samantha [facility] - Samantha Mcbride [address] [place] [address] 06/29/2024 Samantha Mcbride [facility] [address] [place] [address] 07/17/2024 Samantha [facility] - Samantha Mcbride [address] [place] [address] 08/11/2024 Samantha Mcbride [facility] [address] [place] [address] 08/24/2024 Samantha Mcbride Obesity, unspecified E66.9 [facility] [address] [place] [address] 09/13/2024 Samantha Mcbride [facility] [address] [address] 05/06/2024 Sue Leroy [facility] [address] [address] 06/10/2024 Sue Leroy Assessments Encounter Date Diagnosis [...] and shortness of breath. She has seen Laundry Press Operator however given metoprolol, then diltazelem w/o [...] Order dexamethasone suppression test to evaluate for Ward's syndrome - If DST comes back positive, [...] pressure regularly 5. Early hypothyroidism - Recommend [id number]-[id number] Thyroid Support supplement from [facility] - Reevaluate thyroid function in 2 months [...] procedures, referring and communicating with other health home care giver, documenting clinical information in the electronic or other health record, independently interpreting results and communicating results to the patient/family/careg iver and care coordinating patient plan. Patient alert and oriented x 4 and aware of discussion noted above and in agreeance to plan in management of weight gain/obesity, autoimmune thyroiditis, fatigue, and prediabetes. 09/25/2024 Other Assessment and Plan: Suspected Ward's SyndromePatient exhibits symptoms indicative of Ward's syndrome: weight gain, fatigue, bruising, and mood [...] procedures, referring and communicating with other health home care giver, documenting clinical information in the electronic or [...] Insured Coverage Start Date Coverage End Date [facility] [address] [place] [address] [id number] Loly Rios Self - patient is the [...]
--- OUTSIDE RECORDS SUMMARY | 2025-04-20 00:14 | XMS_ITS | Continuity of Care Document ---
Author Organization [facility] Address [address] [facility] [address] [place] [address] Insurance Providers Payer Plan Claims Address Claims Phone Policy Number Group Number Relation Employer Guarantor Name Guarantor Guarantor Address Guarantor Phone [employer] [address], [place] [address] tel:[phone] [id number] Other Loly Gabriel 1975 [address], [place] [address] [employer] [address] [address], [place] [id number] Self Loly Gabriel 1975 [address] [place] [address] GENER IC VISIO N VSP [id number] Self Loly Mdren 1975 [address] [place] [address] Problems Unknown Problems Results Test Result Date/Time Value / Unit Interp. Refere [facility] Range Lab Report Loly [email or web address].pdf Allergies, adverse reactions, alerts No known allergies and adverse reactions Medications No administered medications reported Vital Signs No vital signs reported Social History No smoking Hx information available
--- OUTSIDE RECORDS SUMMARY | 2025-04-20 00:14 | XMS_ITS | Clinical Summary ---
Author Organization [facility] Address [address], [address] [address] Phone Care Team Providers Care Residential Door Unit Installer Name Role Phone Provider, None Primary Care [...] Active DYMISTA 137-50 MCG/ACT Suspension take 1 Spruce by inhalation 2 times daily. 5 6 [...] by inhalation 2 times daily. Active Evening Stephenson Oil 1000 MG Capsule Take 1 Cap [...] Comments Blood Pressure 128/86 07/03/2017 10:39 AM WASHCOAT WIPER Pulse 89 07/03/2017 10:39 AM WASHCOAT WIPER Temperature 36.8 C (98.3 F) 07/03/2017 10:39 AM WASHCOAT WIPER Respiratory Rate 18 07/03/2017 10:39 AM WASHCOAT WIPER Oxygen Saturation 98% 07/03/2017 10:39 AM WASHCOAT WIPER Inhaled Oxygen Concentration - - Weight 96.6 kg (213 lb) 07/03/2017 10:39 AM WASHCOAT WIPER Height 175.3 cm (5' 9) 07/03/2017 10:39 AM WASHCOAT WIPER Body Mass Index 31.45 07/03/2017 10:39 AM WASHCOAT WIPER Plan of Treatment Health Maintenance Due Date Last Done Comments Hepatitis C Virus (HCV) Screening 1975 TdaP Immunization 1974 Hepatitis B Immunization (1 of 3 - 19+ 3-dose series) 1993 Pneumococcal Immunization (5 0+ years) (1 of 2 - PCV) 1993 Pap Smear 1995 Cervical Cancer Screening (CCS) 01/14/2004 HPV/Cotest 01/14/2004 Cologuard 2019 Colonoscopy 2019 Colorectal Cancer Screening 2019 Immunochemical Fecal Occult Blood 2019 Zoster Immunization (1 of 2) 01/14/2024 SARS-COV-2 Immunization ( - season) 2024 Influenza Immunization (#1) 2025 Respiratory Syncytial Virus (RSV) Immunization (Adult) (1 - 1-dose 75+ series) 2049 Human Papillomavirus (HPV) Immunization Aged Out No longer eligible b ased on patient's age to complete this topic Meningococcal Immunization (ACWY) Aged Out No longer eligible based on patient's age to complete this topic Rotavirus Immunization Aged Out No lo nger eligible based on patient's age to complete this topic Insurance Care Teams Residential Door Unit Installer Relationship Specialty Start Date End Date Provider, None [place] PCP - General 02/09/21
--- OUTSIDE RECORDS SUMMARY | 2025-04-20 00:14 | XMS_ITS | Patient Health Record ---
Author Organization [facility] ([id number]) Address [address] [place] [address] Care Team Providers Care Sugar Cane Grower Name Role Phone Kishan Sweeney Primary Care Provider Unavailab Ivis Davila Unavailable [phone] Abdelrahman Riley Unavailable [phone] Allergies Allergen (clinical drug ingredient) Drug/Non Drug [...] (in the evening); Duration: 30 day(s) Active Progesterone 100 MG 2 [...] intl units as directed orally once a day; Duration: 30 day(s) Active PRILOSEC OTC 20 mg 1 tab(s) orally once a day Active BUSPIRONE 7.5 mg 1 tab(s) orally 2 times a day; Duration: 30 day(s) 09/18/2021 Active Dulera 200-5 MCG/ACT 2 puff(s) inhaled 2 times a day; Duration: 30 day(s) Active TIZANIDINE 2 mg 2 tab(s) orally ever y 8 hours; Duration: 30 day(s) 09/18/2021 Active Fluticasone Propionate 50 MCG/ACT 2 spray(s) intranasally once a day Active VYVANSE 60 mg ; Duration: 30 A ctive NASAL WASHES N/A DIRECTED INTRANASALLY NEEDED *Please review for potential replacement for e-prescription and drug interaction check* Active PANTOPRAZOLE 40 mg 1 tab(s) orally once a day; Duration: 30 day(s) Active ZyrTEC Allergy 10 MG 1 tab(s) orally onc e a day Active DULERA 5 mcg-200 mcg/inh INHALE 2 PUFFS BY MOUTH TWICE DAILY; Duration: 30 Active Hydrocortisone 1 % 1 darren applied topically 3 times a day; Duration: 14 day(s) Active Montelukast Sodium 10 MG 1 tab(s) orally once a day (in the evening); Duration: 90 days Active AUVI-Q 0.3 mg as directed intramuscularly once; Duration: 30 day(s) Active AEROCHAMBER MDI SPACER - MOUTHPIECE (ADULT) N/A DIRECTED PO PER ASTHMA ACTION PLAN; Duration: 30 DAY(S) *Please review for potential replacement for e-prescription and drug interaction check* Active ESCITALOPRAM 20 MG ; Duration: 90 Active Ventolin HFA 108 (90 Base) MCG/ACT 2 puff(s) inhaled 4 times a day; Duration: 30 day(s) Active PROGESTERONE 100 mg 2 [...] (in the evening); Duration: 30 day(s) Active Vyvanse 60 MG ; Duration: 30 A ctive VENTOLIN HFA CFC free 90 mcg/inh 2 puff(s) inhaled 4 times a day; Duration: 30 day(s) Active Pantoprazole Sodium 40 MG 1 tab(s) orally once a day; Duration: 30 day(s) Active DULERA 5 mcg-200 mcg/inh 2 puff(s) inhaled 2 times a day; Duration: 30 day(s) Active Vitamin D3 50 MCG (2000 UT) as directed orally once a day; Duration: 30 day(s) Active FLUTICASONE PROPIONATE 50 mcg/inh 2 spray(s) intranasally once a day Active PriLOSEC OTC 20 MG 1 tab(s) orally once a day Active Auvi-Q 0.3 MG/0.3ML as directed intramuscularly once; Duration: 30 day(s) Active Escitalopram Oxalate 20 MG ; Duration: 90 Active HYDROCORTISONE TOPICAL 1% 1 darren applied topically 3 times a day; Duration: 14 day(s) Active busPIRone HCl 7.5 MG 1 tab(s) orally 2 times a day; Duration: 30 day(s) 09/18/2021 Active MONTELUKAST SODIUM 10 mg 1 tab(s) orally once a day (in the evening); Duration: 90 days Active tiZANidine HCl 2 MG 2 tab(s) orally ever y 8 hours; Duration: 30 day(s) 09/18/2021 Active Immunizations Vaccine Route Administration Date Status Comme nts NOC PedvaxHIB IM Intramuscular 01/21/2015 Administered NOC Pneumovax 23 IM Intramuscular 01/21/2015 Administered NOC Tdap IM Intramuscular 01/21/2015 Administered Influenza Unknown 06/08/2016 Administered NOC Flucelevax Quadrivalent Unknown 08/10/2020 Refused Social History Tobacco Use: Social History Observation Description Date Details (start date - stop date) Never Smoker NA - NA Smoking Smart Form: Question Answer Notes Are you a: never smoker Problems Problem Type SNOMED Code ICD Code Onset Dates Problem Status W/U Status Risk Notes Problem Information temporarily unavailable 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) Active confirmed Problem Information temporarily unavailable Dysthymic disorder (F34.1) Active confirmed Problem Information temporarily unavailable Complex regional pain syndrome I, unspecified (G90.50) Active confirmed Problem Information temporarily unavailable Other chronic allergic conjunctivitis (H10.45) Active confirmed Problem Information temporarily unavailable Allergic rhinitis due to pollen (J30.1) Active confirmed Problem Information temporarily unavailable Allergic rhinitis due to animal (cat) (dog) hair and dander (J30.81) Active confirmed Problem Information temporarily unavailable Other allergic rhinitis (J30.89) Active confirmed Problem Information temporarily unavailable Chronic sinusitis, unspecified (J32.9) Active confirmed Problem Information temporarily unavailable Moderate persistent asthma with (acute) exacerbation (J45.41) Active confirmed Problem Information temporarily unavailable Functional dyspepsia (K30) Active confirmed Problem Information temporarily unavailable Allergic rhinitis due to pollen (J30.1) Active confirmed Problem Information temporarily unavailable Allergic rhinitis due to animal (cat) (dog) hair and dander (J30.81) Active confirmed Problem Information temporarily unavailable Other allergic rhinitis (J30.89) Active confirmed Problem Information temporarily unavailable Moderate persistent asthma, uncomplicated (J45.40) Active confirmed Problem Information temporarily unavailable Other chronic allergic conjunctivitis (H10.45) Active confirmed Problem Information temporarily unavailable Allergic contact dermatitis due to other chemical products (L23.5) Active confirmed Problem Information temporarily unavailable Rash and other nonspecific skin eruption (R21) Active confirmed Problem Information temporarily unavailable Elevated blood-pressure reading, without diagnosis of hypertension (R03.0) Active confirmed Problem Information temporarily unavailable Vitamin D deficiency, unspecified (E55.9) Active confirmed Problem Information temporarily unavailable Other diseases of vocal cords (J38.3) Active confirmed Problem Information temporarily unavailable Personal history of systemic steroid therapy (Z92.241) Active confirmed Plan Of Treatment Pending Test Test Name Order Date X ray : Chest 02/16/2021 X ray : Chest 02/17/2021 Insurance Providers Payer Name Payer Address Payer Phone Subscriber Number Group Number Insured Name Patient Relationship to Insured Coverage Start Date Coverage End Date [facility] [id number] [place] [address] [id number] Gianni Rios Spouse - patient is the [...]
--- OUTSIDE RECORDS SUMMARY | 2025-04-20 00:14 | XMS_ITS | Encounter Summary ---
Author Organization [facility] Address [address] [place] [address] Phone Care Team Providers Care Potato Peeling Machine Operator Name Role Phone Dilcia vIan MD Primary Care Provi beronica Skylar Huffman RN Unavailable [phone] Encounter Details Date Type Department Care Team (Late st Contact Info) Description 04/18/2023 Documentation [facility] Neurosurgery [address] 6th [place] [address] [place] [address] Abigail Morton [facility] Social History Tobacco Use Types Packs/Day Years [...] on file Legal Sex Female 1:54 AM CERTIFIED NURSES AIDE Gender Identity Female 10/25/2021 3:40 PM CERTIFIED NURSES AIDE Sexual Orientation Straight 10/25/2021 3: 40 PM CERTIFIED NURSES AIDE documented as of this encounter Plan of Treatment Not on file documented as of this encounter Visit Diagnoses Not on filedocumented in this encounter Additional Health Concerns Infection Onset Date Last Indicated Resolved Time COVID: Suspected 06/06/2023 06/06/2023 06/06/2023 6:57 PM CDT COVID: Suspected 06/06/2023 06/06/2023 06/06/2023 10:57 PM CDT documented as of this encounter Care Teams Potato Peeling Machine Operator Relationship Specialty Start Date End Date Dilcia Ivan MD [facility] [address] [place] [id number] PCP - General Family Medicine 06/14/21 Skylar Huffman, RN [address] [place] [address] Nurse Navigator 03/01/23 07/29/23 documented as of this encounter
--- OUTSIDE RECORDS SUMMARY | 2025-04-20 00:14 | XMS_ITS | Patient Health Record ---
Author Organization [facility] Address [address] [facility] [address] [place] [address] Care Team Providers Care Extension Division Director Name Role Phone Mary Luna Unavailable [phone] Reason For Referral No Information Plan Of Treatment No Information Insurance Providers Payer Name Payer Address Payer Phone Subscriber Number Group Number Insured Name Patient Relationship to Insured Coverage Start Date Coverage End Date [facility] [address] [place] [address] [id number] Loly Rios Self - patient is the insured Medical (General) History Surgical History Surgery Date(Month/Year) Lumpectomy; 2021-04-12 Gastric Bypass; 2021-04-12 breast cyst removed; 2021-04-12
--- OUTSIDE RECORDS SUMMARY | 2025-04-20 00:14 | XMS_ITS | Encounter Summary ---
Author Organization [facility] Address [address] [place] [address] Care Team Providers Care Manager Business Continuity Name Role Phone Dilcia Ivan MD Primary Care [facility] Reason for Referral * Consultation (Routine) - Closed Specialty Diagnoses / Procedures Referred By Contac t Referred To Contact Rheumatology Diagnoses Chronic fatigue Dilcia Ivan MD [address] [place] [address] Phone: tel: fax: Ric Chaparro MD [address] [place] [address] Phone: tel: fax: Referral ID Status Reason Start Date Expiration Date V isits Requested Visits Authorized [id number] Closed Specialty Services Required 12/30/2024 01/29/2026 6 6 Question Answer Please select the performing region: External Order [171] To Provider NOTE: we will do our best to honor your provider preference, but scheduling the patient in a timely manner in our clinic will take precedence. 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
--- NOTE | 2025-04-20 08:48 | WPDANESEPPF ---
Anes - Initial Pre Proc Eval Procedure: Operation Date: 04/20/25 14:30 Proposed Procedures p Esophagogastroduodenoscopy & Colonoscopy - Nahid Rivera MD Date/Time: 04/20/25 08:48 Surgeon: Nahid Rivera MD Pre Op Diagnosis: Other dysphagia,Bilious vomiting,Epigastric pain Patient Data Age: 50 Gender: F Height: 1.73 m Weight: 145.5 kg Allergies Allergy/AdvReac Type Severity Reaction Status Date / Time topiramate (From Topamax) Allergy Mild Abdominal Verified 04/20/25 12:53 Pain erythromycin base Allergy Unknown Unknown Verified 04/20/25 12:53 minocycline (From Minocin) Allergy Unknown Unknown Verified 04/20/25 12:53 amitriptyline AdvReac Severe bleeding Verified 04/20/25 12:53 tirzepatide (From Zepbound) AdvReac Intermediate Unknown Verified 04/20/25 12:53 gabapentin AdvReac Mild heaches Verified 04/20/25 12:53 Home Medications ?Medication ?Instructions ?Recorded ?Confirmed ?Type albuterol sulfate 90 mcg/actuation 1 inh inhalation Q4H 09/22/24 04/20/25 History aerosol inhaler (Ventolin HFA) cetirizine 10 mg capsule (All Day 10 mg PO DAILY PRN allergy symptoms 09/22/24 01/06/25 History Allergy (cetirizine)) clonazepam 1 mg tablet (Klonopin) 1 mg PO DAILY 09/22/24 04/20/25 History cyanocobalamin (vitamin B-12) 100 mcg subcut .Week 09/22/24 04/20/25 History 1,000 mcg/mL injection kit cyclosporine 0.05 % eye drops in a 1 drp EACH EYE Q12H 09/22/24 01/06/25 History dropperette (Restasis) diltiazem HCl 240 mg 240 mg PO DAILY 09/22/24 04/20/25 History capsule,extended release 24 hr (Cardizem CD) ergocalciferol (vitamin D2) 50,000 50,000 unit PO WEEKLY 09/22/24 04/20/25 History unit tablet escitalopram oxalate 20 mg tablet 20 mg PO DAILY 09/22/24 04/20/25 History folic acid 1 mg tablet 1 mg PO DAILY 09/22/24 04/20/25 History inhalational spacing device 09/22/24 12/08/24 History (Aerochamber MV spacer) lisdexamfetamine 70 mg capsule 70 mg PO DAILY 09/22/24 04/20/25 History (Vyvanse) metformin 500 mg tablet 500 mg PO DAILY 09/22/24 04/20/25 History needle (disp) 23 gauge 23 gauge x 09/22/24 12/08/24 History 1 (BD Integra Needle) tizanidine 2 mg capsule 2 mg PO TID PRN muscle spasticity 09/22/24 01/06/25 History ondansetron 8 mg disintegrating 8 mg PO Q8H PRN nausea and 12/08/24 01/06/25 Rx tablet vomiting #60 tabs omeprazole 40 mg capsule,delayed See Rx Instructions .Route 03/02/25 04/20/25 Rx release .COMPLEX #60 caps Patient hx anesthesia problems: none Family hx anesthesia problems: none Results Review: All pre-operative results and documents have been reviewed as part of the pre-operative evaluation. 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 Headaches, cluster Arthritis Asthma Allergies Depression Anxiety Surgical History Surgical History (Updated 04/20/25 @ 17:56 by Nahid Rivera MD) H/O lumpectomy Gastric bypass status for obesity Family History Family History Mother Lung cancer COPD (chronic obstructive pulmonary disease) Depression Heart disease Hypertension Father Bladder cancer Colon polyp Depression Hypertension Heart disease Social History Social History Smoking status: Former smoker Tobacco type: cigarettes Alcohol intake: never Substance use: current Substance use type: marijuana Living arrangements: with family Spiritual care concerns: No Anes - Eval Final PreProcedure Day of Procedure 04/20/25 08:48 Patient weight: morbidly obese Heart: regular rate and rhythm Lungs: clear to auscultation Airway: Mallampati scale class II Neurological: alert and oriented Last oral intake: >/= 8 hours ASA classification: III Emergent: no Anesthetic plan: proceed Anesthesia type and monitoring: general GIVS and standard monitoring Results Review: All pre-operative results and documents have been reviewed as part of the pre-operative evaluation. Informed Consent: The patient's anesthetic plan and its attendant risks and benefits were discussed with the patient/family/POA. Questions were solicited and answers provided to the satisfaction of the patient/family/POA.
[2025-04-20 12:50] VITALS: BP 130/54; PULSE 95; RESP 16; TEMP 36.2; O2SAT 99; BMI 46.3
[2025-04-20] MEDS: LACTATED RINGERS 1,000 ML 150 ML IV CONT (13:05)
[2025-04-20] MEDS: SIMETHICONE ORAL SUSPENSION 20 MG/0.3 ML 30 ML BOTTLE 1.8 ML PO (13:06)
--- NOTE | 2025-04-20 13:35 | PM.IMHP ---
H&P: HPI History of Present Illness Date/Time: 04/20/25 13:35 Chief Complaint: Nausea -history of colon polyps -family history of colon cancer Narrative: the patient has history of Yayo-en-Y gastric bypass, and for the past year she has been complaining of lack of appetite, nausea and epigastric discomfort, associated with occasional dysphagia to solids. In addition, the patient has personal history of colon polyps and a family history of colon cancer ( Her father had malignant polyps when he was in his early 60s. ). she has occasional diarrhea and is referred today for colonoscopy, to rule out polyps and microscopic colitis and an EGD to evaluate nausea, dyspepsia and occasional dysphagia. 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 Headaches, cluster Arthritis Asthma Allergies Depression Anxiety Surgical History Surgical History H/O lumpectomy Gastric bypass status for obesity Family History Family History Mother Lung cancer COPD (chronic obstructive pulmonary disease) Depression Heart disease Hypertension Father Bladder cancer Colon polyp Depression Hypertension Heart disease Social History Social History Smoking status: Former smoker Tobacco type: cigarettes Alcohol intake: never Substance use: current Substance use type: marijuana Living arrangements: with family Spiritual care concerns: No Meds Home Medications and Allergies Home Medications ?Medication ?Instructions ?Recorded ?Confirmed ?Type albuterol sulfate 90 mcg/actuation 1 inh inhalation Q4H 09/22/24 04/20/25 History aerosol inhaler (Ventolin HFA) cetirizine 10 mg capsule (All Day 10 mg PO DAILY PRN allergy symptoms 09/22/24 01/06/25 History Allergy (cetirizine)) clonazepam 1 mg tablet (Klonopin) 1 mg PO DAILY 09/22/24 04/20/25 History cyanocobalamin (vitamin B-12) 100 mcg subcut .Week 09/22/24 04/20/25 History 1,000 mcg/mL injection kit cyclosporine 0.05 % eye drops in a 1 drp EACH EYE Q12H 09/22/24 01/06/25 History dropperette (Restasis) diltiazem HCl 240 mg 240 mg PO DAILY 09/22/24 04/20/25 History capsule,extended release 24 hr (Cardizem CD) ergocalciferol (vitamin D2) 50,000 50,000 unit PO WEEKLY 09/22/24 04/20/25 History unit tablet escitalopram oxalate 20 mg tablet 20 mg PO DAILY 09/22/24 04/20/25 History folic acid 1 mg tablet 1 mg PO DAILY 09/22/24 04/20/25 History inhalational spacing device 09/22/24 12/08/24 History (Aerochamber MV spacer) lisdexamfetamine 70 mg capsule 70 mg PO DAILY 09/22/24 04/20/25 History (Vyvanse) metformin 500 mg tablet 500 mg PO DAILY 09/22/24 04/20/25 History needle (disp) 23 gauge 23 gauge x 09/22/24 12/08/24 History 1 (BD Integra Needle) tizanidine 2 mg capsule 2 mg PO TID PRN muscle spasticity 09/22/24 01/06/25 History ondansetron 8 mg disintegrating 8 mg PO Q8H PRN nausea and 12/08/24 01/06/25 Rx tablet vomiting #60 tabs omeprazole 40 mg capsule,delayed See Rx Instructions .Route 03/02/25 04/20/25 Rx release .COMPLEX #60 caps Allergies Allergy/AdvReac Type Severity Reaction Status Date / Time topiramate (From Topamax) Allergy Mild Abdominal Verified 04/20/25 12:53 Pain erythromycin base Allergy Unknown Unknown Verified 04/20/25 12:53 minocycline (From Minocin) Allergy Unknown Unknown Verified 04/20/25 12:53 amitriptyline AdvReac Severe bleeding Verified 04/20/25 12:53 tirzepatide (From Zepbound) AdvReac Intermediate Unknown Verified 04/20/25 12:53 gabapentin AdvReac Mild heaches Verified 04/20/25 12:53 Vital Signs Vital Signs - 24 hr 04/20/25 12:50 Temperature 97.1 F L Pulse Rate 95 Respiratory Rate 16 Blood Pressure 130/54 L Pulse Oximetry 99 Oxygen Delivery Room Air Exam Const: General: cooperative and healthy appearing Resp: Effort & Inspection: normal respiratory effort and able to speak in complete sentences Auscultation: clear to auscultation bilaterally Cardio: Rate: regular rate Rhythm: regular rhythm GI: Inspection: normal to inspection GI Palp: No No hepatosplenomegaly present Auscultation: normal bowel sounds Rectal Exam: deferred Skin: General skin exam: normal color Psych: Appearance: grossly normal Mental Status: mental status grossly normal Assessment and Plan Assessment and plan (1) Nausea & vomiting: Qualifiers: Vomiting type: bilious vomiting Qualified Code(s): R11.14 - Bilious vomiting Code(s): R11.2 - Nausea with vomiting, unspecified Status: Acute Assessment and Plan: The patient is deemed a good candidate for the procedures. Consent signed. Will proceed. (2) Family history of colon cancer: Code(s): Z80.0 - Family history of malignant neoplasm of digestive organs Status: Acute (3) Diarrhea: Qualifiers: Diarrhea type: functional diarrhea Qualified Code(s): K59.1 - Functional diarrhea Code(s): R19.7 - Diarrhea, unspecified Status: Acute (4) Colon polyps: Qualifiers: Colon polyp type: adenomatous Colon location: ascending Qualified Code(s): D12.2 - Benign neoplasm of ascending colon Code(s): K63.5 - Polyp of colon Status: Acute
--- NOTE | 2025-04-20 13:53 | SUR.OPER ---
EGD [id number]. Colonoscopy start time 1402.
--- NOTE | 2025-04-20 14:12 | S_PTH ---
PATIENT: Loly Rios LOC: [facility] #:[id number] AGE/SX: 50/F ROOM: RE04/20/[address]: Nahid Rivera MD : 1975 BED: DIS: 04/20/2025 SPEC #: [id number] RECD: 04/21/25 08:10 STATUS: SUMEET RE #: [id number] SUE: 04/20/25 14:[address]: Nahid Rivera DEPT: [facility] Surgical RECD BY: Cassi Davey ENTERED: 04/21/25 08:13 SP TYPE: Surgical OTHR DR: Dilcia IvanMD Tissues: A - Gastric Biopsy B - Gastric Biopsy C - Esophageal Biopsy D - Colon Biopsy E - Colon Biopsy Procedures: Hematoxylin and Eosin Stain Gross and Microscopic Level 4
[2025-04-20 14:21] VITALS: BP 124/85; PULSE 74; RESP 17; O2SAT 100
[2025-04-20 14:31] VITALS: BP 148/92; PULSE 76; RESP 20; O2SAT 100
[2025-04-20 14:41] VITALS: BP 137/73; PULSE 72; RESP 20; O2SAT 100
== END 2025-04-20 15:02 | disposition home or self-care (01) ==
PROVIDERS: PCP Family Medicine; Referring Provider Nurse Practitioner Family; Visit Provider Internal Medicine Gastroenterology
PROC: 0DJ08ZZ Inspection of Upper Intestinal Tract, Via Natural or Artificial Opening Endoscopic (ICD-10-PCS; CPT 45378; principal; 2025-04-20 14:30)
DX: K31.89 Other diseases of stomach and duodenum (principal); K25.3 Acute gastric ulcer without hemorrhage or perforation; K44.9 Diaphragmatic hernia without obstruction or gangrene; J45.909 Unspecified asthma, uncomplicated; F32.A Depression, unspecified; F41.9 Anxiety disorder, unspecified; F90.9 Attention-deficit hyperactivity disorder, unspecified type; G89.4 Chronic pain syndrome; R00.0 Tachycardia, unspecified; N80.209 Endometriosis of unspecified fallopian tube, unspecified depth; M19.90 Unspecified osteoarthritis, unspecified site; F12.90 Cannabis use, unspecified, uncomplicated; E66.01 Morbid (severe) obesity due to excess calories; Z68.42 Body mass index [BMI] 45.0-49.9, adult; Z79.51 Long term (current) use of inhaled steroids; Z79.84 Long term (current) use of oral hypoglycemic drugs; Z98.890 Other specified postprocedural states; Z98.84 Bariatric surgery status; Z87.891 Personal history of nicotine dependence; Z86.0100 Personal history of colon polyps, unspecified; Z83.719 Family history of colon polyps, unspecified; Z80.0 Family history of malignant neoplasm of digestive organs; Z80.1 Family history of malignant neoplasm of trachea, bronchus and lung; Z80.52 Family history of malignant neoplasm of bladder; Z82.49 Family history of ischemic heart disease and other diseases of the circulatory system
CPT/HCPCS: 43239; 45380; 82948; 88305; J2003; J7120